=== PATIENT | female | born 1960 | race Caucasian/White ===

== ENCOUNTER → 2017-11-19 09:53 | Outpatient (CLI) | payer BC, SELFPAY ==
--- NOTE | 2017-11-19 09:56 | XR_ITS ---
XR DEXA axial skeleton HISTORY: ITS.REASON: POST MENOPAUSAL ORDERING PHYSICIAN: Rufina Aceves MD PATIENT AGE: 57 years COMPARISON: None FINDINGS: The BMD measured at the left Forearm Radius is 1.008 g/cm squared with a T score of 1.4 . This is considered normal according to the World Health Organization criteria. Fracture risk is low. Treatment is advised. The L1 L4 density has a T score of 1.4 which is within normal limits. IMPRESSION: Normal bone density. Recommend follow-up exam November 2019
--- NOTE | 2017-11-19 09:56 | MM_ITS ---
. MM Dig screening mamm BI w/CAD CAD Screening ORDERING PHYSICIAN : Rufina Aceves MD PATIENT AGE: 57 years GENDER: Female COMPARISON: No Previous mammograms: Available for comparison. In PACS system . INDICATION: Routine screening. No hormones. No new complaints. Family history. Sibling sister with breast cancer age 66 TECHNIQUE: Standard CC and MLO images were obtained. R2 CAD reviewed. FINDINGS: Iipp-zj-jnwyhszt scattered fibroglandular elements with mild/Moderate breast density. No dominant mass nor suspicious calcifications . Minimal asymmetry RIGHT BREAST:No areas of concern follow-up in one year. LEFT BREAST:Mild asymmetry but appear to be it fibroglandular densities which tdissipate moving from CC to MLO view. No areas of significant concern. Follow-up bilateral mammogram 1 year on recommended. Annual follow-up Should be encouraged/emphasized to ensure stable baseline of this minor asymmetry. ==IMPRESSION: = No focal area of significant concern. . Follow up one year Added note: Technologist again checked and there are No prior studies available for comparison. Apparently previous studies many years ago have been purged... Again with Encourage & Recommend bilateral follow-up one year to ensure stable baseline appearance of the minimal asymmetry BI-RADS Category: 2 Benign Finding(s) RECOMMENDED FOLLOW-UP: 1YR - 1 YEAR FOLLOW-UP (A letter has been sent to the patient regarding results of the study.)
== END ==
PROVIDERS: Family Provider Family Medicine; PCP Family Medicine; Visit Provider Family Medicine
DX: Z12.31 Encounter for screening mammogram for malignant neoplasm of breast (principal); Z13.820 Encounter for screening for osteoporosis
CPT/HCPCS: 77067; 77080

== ENCOUNTER → 2019-04-27 06:28 | Outpatient (CLI) | payer MEDICAID, SELFPAY ==
--- NOTE | 2019-04-27 | CA_ITS ---
APPROVED REPORT Exam: Exercise Treadmill Technologist: Alysha Paulino, Ht: 5 ft 5 in Wt: 188 lbs BSA: 1.93 m2 HR: 69 bpm BP: 146/86 mmHg Indications: Chest pain Medical History Medications: Amlodipine,,,,, Alprazolam,,,,, Aspirin,,,,, Metoprolol,,,,, Losartan,,,,, Atorvastatin,,,,, DulOXETINE,,,,, LoraTidine,,,,, SpirOnolactone,,,,, Methocarbamol,,,,, Stress Test Details Test: Manual Treadmill HR Resting HR: 79 bpm Max Heart Rate (APMHR): 161 bpm Max HR Achieved: 135 bpm Target HR (85% APMHR): 136 bpm % of APMHR: 83 Recovery HR: 115 bpm BP Resting BP: 146/86 mmHg Max BP: 222/88 mmHg Recovery BP: 154.0/71.0 mmHg ECG Clinical Exercise duration: 07:15 min Highest Stage Achieved: Exercise capacity: 9.0 METs Stress ECG Conclusion Exercised 7:15 on Adonis Protocol. Symptoms: No chest pain. Shortness of air, knee and hip pain, fatigue. Arrhythmias/Ectopy: Occasional fusion beat ST-T Changes: Allowing for motion artifact the ST response to exercise is within normal. Normal GXT Myoview images reported separately. Electronically signed by : Demond Kruse, 05/04/2019 11:42:52
--- NOTE | 2019-04-27 06:38 | NM_ITS ---
APPROVED REPORT Exam: Nuclear Stress Test NM EXAM: Myocardial Perfusion REST/STRESS Imaging Protocol: Rest Tc-99m/Stress Tc-99m 1 day Resting Data Rest SPECT myocardial perfusion imaging was performed in supine position 30 minutes following the intravenous injection of 10.20 mCi of TC99 Time of rest injection: 06:45AM Administration Route: IV Administration Site: Left AC Exercise Stress At peak stress, the patient was injected intravenously with 32.5mCi of TC99 Time of stress injection: 08:25AM Administration Route: IV Administration Site: Left AC Gated Stress SPECT was performed 30 minutes after stress injection. The images were gated to evaluate regional wall motion and calculate left ventricular ejection fraction. Nuclear Conclusion Stress images reveal decreased activity in the anterior wall and apex while the rest images reveal worsening activity in the above areas. Gated images calculated ejection fraction of 72% with normal wall motion. This is an abnormal stress test suggesting a significant degree of reversed redistribution in the anterior wall and apex. Normal ejection fraction and normal wall motion. High risk abnormal Electronically signed by : Demond Kruse, 04/29/2019 13:31:13
--- NOTE | 2019-04-27 07:19 | HMH.ITSHM ---
Current Home Medications as stated by this patient Jojo Flores or pharmaceutical sales representative. []DULOXETINE LOSARTAN ALPRAZOLAM SPIRONOLACTONE ATORVASTATIN METOPROLOL AMLODIPINE METHOCARBAMOL ASA LORATADINE
== END ==
PROVIDERS: PCP Family Medicine; Visit Provider Family Medicine
DX: R07.89 Other chest pain (principal)
CPT/HCPCS: 78452; 93017; A9502

== ENCOUNTER → 2020-09-19 11:18 | Outpatient (CLI) | payer MEDICARE, SELFPAY ==
--- NOTE | 2020-09-19 11:22 | XR_ITS ---
PROCEDURE: XR CHEST PORTABLE CLINICAL HISTORY: COVID OUTPATIENT Shortness of air COMPARISON: CR CXR CHEST(2 VIEWS-NOT PORTABLE) from 01/19/2013 CR CXR CHEST(2 VIEWS-NOT PORTABLE) from 11/25/2013 FINDINGS: The cardiomediastinal silhouette and pulmonary vascularity are within normal limits. The lungs are clear without infiltrates, suspicious nodules, or pleural effusions. No acute bony abnormalities. IMPRESSION: No acute findings. Dictated by: Jorge Reilly MD 09/19/2020 12:22 Jorge Reilly MD in [place] 09/19/2020 12:22
[2020-09-19 12:28] LABS: Basophils # 0.1 K/mm3 (0-0.2); Basophils % 1.3 % (0.1-2.0); Eosinophils # 1.6 K/mm3 (0.0-0.4); Hematocrit 47.1 % (37.0-47.0); Lymphocytes # 1.8 K/mm3 (0.7-4.5); Lymphocytes % 17.6 % (10-50); Mean Corpuscular HGB Conc 31.9 g/dL (31.8-35.4); Mean Corpuscular Hemoglobin 29.6 pg (27.0-31.2); Mean Corpuscular Volume 92.9 fl (81-99); Mean Platelet Volume 8.8 fl (7.4-10.4); Monocytes # 0.7 K/mm3 (0.1-1.0); Monocytes % 7.3 % (1.7-9.3); Neutrophils # 5.8 K/mm3 (1.8-7.8); Neutrophils % 57.9 % (37.0-80.0); Platelet Count 285 K/mm3 (142-424); Red Blood Count 5.07 M/mm3 (4.20-5.40)
[2020-09-19 12:54] LABS: Coronavirus 19 IgG Antibody Negative (Negative); Coronavirus 19 IgM Antibody Negative (Negative)
== END ==
PROVIDERS: PCP Family Medicine; Visit Provider Physician Assistant
DX: Z11.52 Encounter for screening for COVID-19 (principal); I10 Essential (primary) hypertension
CPT/HCPCS: 36415; 71045; 85025; 86328

== ENCOUNTER → 2020-11-22 16:55 | Outpatient (CLI) | payer MEDICARE, SELFPAY ==
--- NOTE | 2020-11-22 17:02 | XR_ITS ---
PROCEDURE: XR CHEST PORTABLE CLINICAL HISTORY: R/O COVID Cough COMPARISON: CR CXR CHEST(2 VIEWS-NOT PORTABLE) from 01/19/2013 CR CXR CHEST(2 VIEWS-NOT PORTABLE) from 11/25/2013 CR XR CHEST PORTABLE from 09/19/2020 FINDINGS: The cardiomediastinal silhouette and pulmonary vascularity are within normal limits. The lungs are clear without infiltrates, suspicious nodules, or pleural effusions. No acute bony abnormalities. IMPRESSION: No acute findings. Dictated by: Jorge Reilly MD 11/22/2020 17:23 Jorge Reilly MD in [facility] 11/22/2020 17:23
[2020-11-22 17:44] LABS: Adenovirus,PCR Not Detected (NotDetected); Bordetella Pertussis Not Detected (NotDetected); Chlamydophila Pneumoniae, PCR Not Detected (NotDetected); Coronavirus 19, PCR Not Detected (NotDetected); Coronavirus 229E Not Detected (NotDetected); Coronavirus NL63 Not Detected (NotDetected); Coronavirus OC43 Not Detected (NotDetected); Coronovirus HKU1,PCR Not Detected (NotDetected); Human Metapneumovirus Not Detected (NotDetected); Influenza A, PCR Not Detected (NotDetected); Influenza AH1, 2009 Not Detected (NotDetected); Influenza AH1, PCR Not Detected (NotDetected); Influenza AH3,PCR Not Detected (NotDetected); Influenza B, PCR Not Detected (NotDetected); Mycoplasma Pneumoniae, PCR Not Detected (NotDetected); Parainfluenza 1, PCR Not Detected (NotDetected); Parainfluenza 2, PCR Not Detected (NotDetected); Parainfluenza 3, PCR Not Detected (NotDetected); Parainfluenza 4, PCR Not Detected (NotDetected); Respiratory Syncytial Virus Not Detected (NotDetected)
[2020-11-22 18:02] LABS: Basophils # 0.1 K/mm3 (0-0.2); Basophils % 0.7 % (0.1-2.0); Eosinophils # 2.4 K/mm3 (0.0-0.4); Eosinophils % 22.4 % (0.1-12.0); Hemoglobin 13.4 g/dL (12.2-16.2); Lymphocytes # 2.3 K/mm3 (0.7-4.5); Lymphocytes % 21.9 % (10-50); Mean Corpuscular HGB Conc 33.6 g/dL (31.8-35.4); Mean Corpuscular Hemoglobin 29.2 pg (27.0-31.2); Mean Corpuscular Volume 87.1 fl (81-99); Mean Platelet Volume 8.6 fl (7.4-10.4); Monocytes # 0.4 K/mm3 (0.1-1.0); Monocytes % 4.2 % (1.7-9.3); Neutrophils # 5.3 K/mm3 (1.8-7.8); Neutrophils % 50.9 % (37.0-80.0); Platelet Count 316 K/mm3 (142-424); Red Cell Distribution Width 13.6 % (11.5-17.5); White Blood Count 10.5 K/mm3 (4.8-10.8)
[2020-11-23 00:39] LABS: Rhinovirus/Enterovirus Detected (NotDetected)
[2020-11-27 13:38] LABS: RMSF, IgG, EIA Negative (Negative); Rocky Mtn Spotted Fever, IgM 0.14 index (0.00-0.89)
== END ==
PROVIDERS: PCP Physician Assistant; Visit Provider Physician Assistant
DX: Z20.822 Contact with and (suspected) exposure to COVID-19 (principal); R05 Cough; B34.8 Other viral infections of unspecified site
CPT/HCPCS: 36415; 71045; 85025; 86609; 87581; 87633; 87798

== ENCOUNTER → 2021-05-15 13:09 | Outpatient (CLI) | payer MEDICARE, SELFPAY ==
--- NOTE | 2021-05-15 13:11 | CA_ITS ---
APPROVED REPORT EXAM: Comprehensive 2D, Doppler, and color-flow Echocardiogram Yard Person: Arely Goldstein, ELAINA, RVS Ht: 5 ft 5 in Wt: 191lbs BSA: 1.94 BP: 161/81 mmHg Indications: Palpitations, CAD, GERD, HTN, HLD, Murmur 2D Dimensions IVSd 0.96 cm LVEF (Visual) 51.30 % PWd 0.88 cm LA Volume 42.00 mL LVDd 3.92 cm LA Volume Index 21.60 mL/m2 (M/F) 16-34 LVDs 2.91 cm Aortic Root 2.94 cm Left Atrium 2.53 cm LVOT 1.68 cm (M/F) 1.5-2.5 M-Mode Dimensions LA Diam 3.40 cm (1.9-4.0) Ao Diam 3.43 cm (2.0-3.7) EPSs 0.27 cm TAPSE 1.98 (<1.7) LV Diastology E Decel Time 140.00 (160-240 msec) E/A Ratio 0.83 MED E' 9.30 (< 7 cm/sec) MED A' 11.20 cm/s E'/MED E' Ratio 8.03 (>14) LAT E' 9.40 (<10 cm/sec) LAT A' 11.50 cm/s E/LAT E' Ratio 7.95 (>14) Aortic Valve LVOT Max 99.00 (70-110 cm/s) LVOT VTI 20.27 cm AoV Peak Mike. 137.00 (50-130 cm/s) AO Peak GR. 7.50 mmHg AO Mean GR. 3.80 (<5 mmHg) AO VTI 26.87 (18-25 cm) KELY (VTI) 1.67 (2.5-4.5 cm2) Mitral Valve MV A Velocity 90.00 (40-130 cm/s) E/A Ratio 0.83 MV Decel. Time 140.00 (160-240 ms) Pulmonary Valve PV Peak Velocity 82.00 (50-150 cm/s) KS End VMAX 175.00 cm/s Tricuspid Valve TR P. Velocity 246.00 cm/s RAP Estimate 10.00 mmHg RVSP 34.20 mmHg Left Ventricle Left atrium is mildly enlarged, left ventricle is normal size, mild concentric left ventricular hypertrophy, visually estimated ejection fraction 55% with no regional wall motion abnormality, grade 1 diastolic dysfunction seen without tissue Doppler evidence of raise left atrial pressure. Right Ventricle Right atrium and right ventricle are normal size and contractility. Aortic Valve Aortic valve is minimally thickened and fibrosed, there is no aortic stenosis or aortic insufficiency. Mitral Valve Mitral valve is grossly normal, there is trace mitral regurgitation. Tricuspid Valve Tricuspid grossly normal, there is trace tricuspid regurgitation, tricuspid regurgitation jet velocity is inadequate for calculation of the right ventricular systolic pressure. Pulmonic Valve Pulmonic valve is poorly visualized. Great Vessels Aortic root is normal size. Inferior vena cava is not well visualized. Pericardium No significant pericardial effusion noted. Conclusion 1. Mildly enlarged left atrium, normal left ventricular size, mild concentric left ventricular hypertrophy, visually estimated ejection fraction 55% with no regional motion abnormality, grade 1 diastolic dysfunction seen without tissue Doppler evidence of raise left atrial pressure. 2. Mild mitral and tricuspid regurgitation. 3. No significant pericardial effusion noted. Electronically signed by : Pro Segura MD 05/16/2021 15:06:07
== END ==
PROVIDERS: PCP Family Medicine; Visit Provider Urology
DX: E78.2 Mixed hyperlipidemia (principal); I10 Essential (primary) hypertension; I25.10 Atherosclerotic heart disease of native coronary artery without angina pectoris; R00.2 Palpitations
CPT/HCPCS: 93306

== ENCOUNTER → 2021-06-06 12:31 | Outpatient (CLI) | payer MEDICARE, SELFPAY ==
[2021-06-06 12:48] LABS: Basophils # 0.1 K/mm3 (0-0.2); Basophils % 1.2 % (0.1-2.0); Eosinophils # 1.2 K/mm3 (0.0-0.4); Eosinophils % 14.7 % (0.1-12.0); Hematocrit 43.1 % (37.0-47.0); Hemoglobin 14.3 g/dL (12.2-16.2); Lymphocytes # 2.5 K/mm3 (0.7-4.5); Lymphocytes % 31.3 % (10-50); Mean Corpuscular HGB Conc 33.3 g/dL (31.8-35.4); Mean Platelet Volume 7.8 fl (7.4-10.4); Monocytes # 0.4 K/mm3 (0.1-1.0); Monocytes % 5.4 % (1.7-9.3); Neutrophils # 3.8 K/mm3 (1.8-7.8); Neutrophils % 47.3 % (37.0-80.0); Platelet Count 380 K/mm3 (142-424); Red Blood Count 4.79 M/mm3 (4.20-5.40); Red Cell Distribution Width 12.7 % (11.5-17.5)
[2021-06-06 13:21] LABS: C-Reactive Protein 0.4 mg/L (0-4)
[2021-06-06 13:26] VITALS: PULSE 74
[2021-06-09 20:38] LABS: D001-IgE D pteronyssinus <0.10 kU/L (Class 0); D002-IgE D farinae <0.10 kU/L (Class 0); E001-IgE Cat Dander <0.10 kU/L (Class 0); E005-IgE Dog Dander <0.10 kU/L (Class 0); E072-IgE Mouse Urine <0.10 kU/L (Class 0); G002-IgE Bermuda Grass <0.10 kU/L (Class 0); G006-IgE Timothy Grass <0.10 kU/L (Class 0); I006-IgE Cockroach, German <0.10 kU/L (Class 0); Immunoglobulin E, Total 79 IU/mL (6-495); M001-IgE Penicillium chrysogen <0.10 kU/L (Class 0); M002-IgE Cladosporium herbarum <0.10 kU/L (Class 0); M003-IgE Aspergillus fumigatus <0.10 kU/L (Class 0); M006-IgE Alternaria alternata <0.10 kU/L (Class 0); T001-IgE Maple/Box Elder 0.16 kU/L (Class 0/I); T003-IgE Common Silver Birch <0.10 kU/L (Class 0); T006-IgE Cedar, Mountain <0.10 kU/L (Class 0); T007-IgE Oak, White <0.10 kU/L (Class 0); T008-IgE Elm, American <0.10 kU/L (Class 0); T010-IgE Walnut <0.10 kU/L (Class 0); T011-IgE Maple Leaf Sycamore <0.10 kU/L (Class 0); T014-IgE Cottonwood <0.10 kU/L (Class 0); T015-IgE Ash, White <0.10 kU/L (Class 0); T022-IgE Pecan, Hickory <0.10 kU/L (Class 0); T070-IgE White Mulberry <0.10 kU/L (Class 0); W001-IgE Ragweed, Short 0.12 kU/L (Class 0/I); W011-IgE Thistle, Russian <0.10 kU/L (Class 0); W014-IgE Pigweed, Common <0.10 kU/L (Class 0); W018-IgE Sheep Sorrel <0.10 kU/L (Class 0)
== END ==
PROVIDERS: PCP Family Medicine; Visit Provider Internal Medicine Pulmonary Disease
DX: J45.909 Unspecified asthma, uncomplicated (principal); R06.00 Dyspnea, unspecified
CPT/HCPCS: 36415; 82785; 85025; 86003; 86140; 94060; 94618; 94640; 94726; 94729

== ENCOUNTER → 2021-10-31 07:58 | Outpatient (CLI) | payer MEDICARE, SELFPAY ==
--- NOTE | 2021-10-31 08:01 | MM_ITS ---
PROCEDURE INFORMATION: Exam: MG Bilateral Screening 3D Mammography Exam date and time: 10/31/2021 8:01 AM Age: 61 years old Clinical indication: Screening mammogram TECHNIQUE: Imaging protocol: Bilateral Screening tomosynthesis and 2D mammography including computer-aided detection (CAD) when performed. COMPARISON: MG SCBI MM Dig screening mamm BI w/CAD 11/19/2017 10:14 AM FINDINGS: MAMMOGRAPHY: Breast composition: There are scattered areas of fibroglandular density. Mass: None. Architectural distortion: No new or suspicious architectural distortion. Calcifications: Stable benign-appearing calcifications are present. No new or suspicious cluster of microcalcifications have developed. Asymmetric density: No new or suspicious asymmetric density is present Skin thickening: None. Axillary adenopathy: None. IMPRESSION: No mammographic evidence of malignancy. Recommend annual screening mammography unless otherwise clinically indicated. ASSESSMENT: BI-RADS category 2: Benign
--- NOTE | 2021-10-31 08:46 | XR_ITS ---
FINAL REPORT TECHNIQUE: Bone densitometry calculations of the lumbar spine and left hip were obtained. CLINICAL HISTORY: . post menopausal FINDINGS: Using L1-4, the bone mineral density of the spine is 1.084 g/cm2, corresponding to T-score of 0.3. Using the left hip, the bone mineral density of the femoral neck is 0.921 g/cm2, corresponding to a T-score of 0.6. Using the distal 3rd of the radius, the bone mineral density of the femoral neck is 0.496 g/cm2, corresponding to a T-score of -3.3. IMPRESSION: Normal bone mineral density of the lumbar spine and hip with osteoporosis of the distal 3rd of the radius. Reviewed, Interpreted and Dictated by Titus Segovia MD Transcribed by Srikanth Esparza Authenticated by Titus Segovia MD on 10/31/2021 12:52:12 PM [facility]
== END ==
PROVIDERS: PCP Family Medicine; Visit Provider Family Medicine
DX: Z12.31 Encounter for screening mammogram for malignant neoplasm of breast (principal); Z78.0 Asymptomatic menopausal state
CPT/HCPCS: 77063; 77067; 77080

== ENCOUNTER → 2022-05-23 10:30 | Outpatient (CLI) | payer MEDICARE, SELFPAY ==
--- NOTE | 2022-05-23 10:35 | XR_ITS ---
FINAL REPORT CLINICAL HISTORY: LEFT SHOULDER PAIN FINDINGS: LEFT SHOULDER Three views demonstrate no acute fracture or dislocation. There is mild AC joint degenerative change. The visualized bony structures are well aligned. No soft tissue abnormality is seen. IMPRESSION: Mild AC joint degenerative change. Reviewed, Interpreted and Dictated by Jeremiah Cohen III, MD Transcribed by Srikanth Esparza Authenticated and [facility]
== END ==
PROVIDERS: PCP Family Medicine; Visit Provider Family Medicine
DX: M25.512 Pain in left shoulder (principal)
CPT/HCPCS: 73030

== ENCOUNTER → 2022-08-08 14:31 | Outpatient (CLI) | payer MEDICARE, SELFPAY ==
--- NOTE | 2022-08-08 14:34 | MR_ITS ---
FINAL REPORT CLINICAL HISTORY: LEFT ARM PAIN. LEFT SHOULDER AND ARM PAIN. LEFT SIDED NECK PAIN. HEADACHE. FINDINGS: Multi planar MR imaging was obtained of the cervical spine. There is abnormal decreased signal throughout the cervical discs. The vertebrae are of normal height. There is no malalignment. The cervical cord demonstrates normal signal and configuration. C2-C3: There is no evidence of significant disc bulge or protrusion. There is no significant facet hypertrophy. C3-C4: Moderate diffuse disc bulge and endplate hypertrophy are present. There is moderate bilateral neural foraminal narrowing. C4-C5: Moderate endplate hypertrophy is present. There is moderate right and moderate to high-grade left neural foraminal narrowing. C5-C6: Moderate to large diffuse disc bulge is present. There is endplate hypertrophy. There is moderate right and high-grade left neural foraminal narrowing. C6-C7: Moderate diffuse disc bulge is present with moderate bilateral neural foraminal narrowing. C7-T1: There is no evidence of significant disc bulge or protrusion. There is no significant facet hypertrophy. IMPRESSION: Multilevel hypertrophic change of degenerative disc disease with neural foraminal compromise, most evident on the left at C5-6. Reviewed, Interpreted and Dictated by Titus Segovia MD Transcribed by Asuncion John Authenticated and [facility]
== END ==
PROVIDERS: PCP Family Medicine; Visit Provider Family Medicine
DX: M79.602 Pain in left arm (principal)
CPT/HCPCS: 72141; 76376

== ENCOUNTER → 2022-11-27 15:13 | Outpatient (CLI) | payer MEDICARE, SELFPAY ==
--- NOTE | 2022-11-27 15:20 | XR_ITS ---
FINAL REPORT CLINICAL HISTORY: LEFT HIP PAIN FINDINGS: LEFT HIP Two views of the left hip including an AP pelvis demonstrate no acute fracture or dislocation. There is moderate narrowing in the left hip joint space. There are osteophytes at the lateral hip margin. There is right hip total joint prosthesis. The visualized bony structures are well aligned. No soft tissue abnormality is seen. IMPRESSION: Findings consistent with osteoarthritis of the left hip. Reviewed, Interpreted and Dictated by Titus Segovia MD Transcribed by Laila Osorio Authenticated and . [facility]
== END ==
PROVIDERS: PCP Family Medicine; Visit Provider Physician Assistant
DX: M25.552 Pain in left hip (principal)
CPT/HCPCS: 73502

== ENCOUNTER 2023-12-24 13:39 | Outpatient (CLI) | payer MEDICARE, SELFPAY | END 2023-12-24 23:59 | disposition home or self-care (01) | LOC: RT 13:40 | PROVIDERS: PCP Family Medicine; Visit Provider Internal Medicine Pulmonary Disease | DX: J45.40 Moderate persistent asthma, uncomplicated (principal) | CPT/HCPCS: 94060 ==

== ENCOUNTER 2024-02-18 09:55 | Outpatient (CLI) | payer MEDICARE, SELFPAY ==
--- NOTE | 2024-02-18 10:00 | MM_ITS ---
PROCEDURE INFORMATION: Exam: MG Bilateral Screening 3D Mammography Exam date and time: 02/18/2024 10:05 AM Age: 63 years old Clinical indication: Screening examination TECHNIQUE: Imaging protocol: Bilateral Screening tomosynthesis and 2D mammography including computer-aided detection (CAD) when performed. COMPARISON: 1. MG MM DIG SCREENING MAMM BI W/CAD 10/31/2021 8:00 AM 2. MG SCBI MM Dig screening mamm BI w/CAD 11/19/2017 10:14 AM FINDINGS: MAMMOGRAPHY: Breast composition: There are scattered areas of fibroglandular density. Mass: None. Architectural distortion: None. Calcifications: No suspicious calcifications. Asymmetric density: None. Skin thickening: None. Axillary adenopathy: None. IMPRESSION: No mammographic evidence of malignancy. Annual screening is recommended unless otherwise clinically indicated. ASSESSMENT: BI-RADS Category 1: Negative
== END 2024-02-18 23:59 | disposition home or self-care (01) ==
LOC: RAD 09:56
PROVIDERS: PCP Family Medicine; Visit Provider Family Medicine
DX: Z12.31 Encounter for screening mammogram for malignant neoplasm of breast (principal)
CPT/HCPCS: 77063; 77067

== ENCOUNTER 2024-06-09 08:55 | Outpatient (CLI) | payer MEDICARE, OTHER, SELFPAY ==
[2024-06-09 09:21] LABS: Basophils % 0.6 % (0.1-2.0); Eosinophils # 0.4 K/mm3 (0.0-0.4); Eosinophils % 5.9 % (0.1-12.0); Hematocrit 40.9 % (37.0-47.0); Hemoglobin 13.3 g/dL (12.2-16.2); Lymphocytes # 2.1 K/mm3 (0.7-4.5); Lymphocytes % 34.3 % (10-50); Mean Corpuscular HGB Conc 32.5 g/dL (31.8-35.4); Mean Corpuscular Hemoglobin 30.9 pg (27.0-31.2); Monocytes # 0.4 K/mm3 (0.1-1.0); Monocytes % 5.7 % (1.7-9.3); Neutrophils # 3.3 K/mm3 (1.8-7.8); Neutrophils % 53.4 % (37.0-80.0); Platelet Count 324 K/mm3 (142-424); Red Cell Distribution Width 13.4 % (11.5-17.5); White Blood Count 6.2 K/mm3 (4.8-10.8)
[2024-06-09 09:35] LABS: Alanine Aminotransferase 23 U/L (12-78); Albumin Level 4.3 g/dl (3.5-5.0); Alkaline Phosphatase 90 U/L (38-126); Aspartate Amino Transferase 26 U/L (14-36); Bilirubin,Total 0.5 mg/dl (0.2-1.3); Blood Urea Nitrogen 13 mg/dl (7-17); Calcium 9.5 mg/dl (8.4-10.2); Carbon Dioxide 33 mmol/L (22.0-30.0); Chloride 105 mmol/L (98-107); Estimated Glomerular Filt Rate 84 ml/min (>60); GFR (African American) 102 ML/MIN (>60); Globulin 2.1 g/dL (1.3-3.2); Glucose 120 mg/dl (74-100); Sodium 141 mmol/L (136-145); Total Protein,Serum 6.4 g/dl (6.3-8.2)
== END 2024-06-09 23:59 | disposition home or self-care (01) ==
LOC: LAB 08:58
PROVIDERS: PCP Family Medicine; Visit Provider Internal Medicine Pulmonary Disease
DX: J45.909 Unspecified asthma, uncomplicated (principal); J84.9 Interstitial pulmonary disease, unspecified
CPT/HCPCS: 36415; 80053; 85025

== ENCOUNTER 2024-07-22 14:13 | Outpatient (CLI) | payer MEDICARE, OTHER, SELFPAY ==
--- NOTE | 2024-07-22 14:21 | CA_ITS ---
APPROVED REPORT EXAM: Comprehensive 2D, Doppler, and color-flow Echocardiogram Trench Digger: Edelmira Villegas RT(R) Ht: 5 ft 5 in Wt: 189lbs BSA: 1.93 BP: 118/66 mmHg Indications: DD, HTN, hyperlipidemia, CAD, Hx TIA 2D Dimensions LA Volume 14.20 mL LA Volume Index 7.36 mL/m2 (M/F) 16-34 EF AP4 60.00 % GL Strain -15.5 % M-Mode Dimensions RVDd 3.50 cm (0.9-2.6) LA Diam 2.42 cm (1.9-4.0) LVDd 3.78 cm (3.5-5.7) LVDs 2.78 cm (3.5-5.7) IVSd 0.93 cm (0.6-1.1) PWd 0.93 cm (0.6-1.1) EF (Teich) 52.60% FS 26.50% EDV (Teich) 61.20 mL ESV (Teich) 29.00 mL LV Diastology E Decel Time 217 (160-240 msec) E/A Ratio 0.86 Mitral Valve MV A Velocity 88.0 (40-130 cm/s) E/A Ratio 0.86 Tricuspid Valve TR P. Velocity 280.00 cm/s RAP Estimate 10.00 mmHg RVSP 41.30 mmHg Left Ventricle The left ventricle is normal size. The left ventricular systolic function is normal. The left ventricular ejection fraction is within the normal range. There is increased LV wall thickness. There is normal LV segmental wall motion. Transmitral Doppler flow pattern suggests impaired LV relaxation. LVEF is 55%. Right Ventricle Right ventricle is mildly dilated. The right ventricular systolic function is normal. Atria The left atrium size is normal. The right atrium size is normal. There is no Doppler evidence of interatrial shunt. Aortic Valve The aortic valve is mildly thickened. There is no aortic valvular stenosis. No aortic regurgitation is present. Mitral Valve The mitral valve is normal in structure. No evidence of mitral valve stenosis. Mild mitral regurgitation. Tricuspid Valve The tricuspid valve leaflets are thin and pliable. Mild tricuspid regurgitation. RVSP is 30-35 mmHg. Pulmonic Valve The pulmonary valve is normal in structure. Mild pulmonic regurgitation. Great Vessels The aortic root is normal in size. The ascending aorta is not well-visualized. IVC is normal in size and collapses >50% with inspiration. Pericardium There is no pericardial effusion. Other Information Study Quality: Fair Conclusion Normal biventricular systolic function. Mild RV dilation. Mild MR, mild TR, mild PI. RVSP 30-35 mmHg. Electronically signed by : Yessica Garcia MD 08/02/2024 11:15:57
== END 2024-07-22 23:59 | disposition home or self-care (01) ==
LOC: RT 14:14
PROVIDERS: PCP Family Medicine; Visit Provider Nurse Practitioner
DX: I34.0 Nonrheumatic mitral (valve) insufficiency (principal); I07.1 Rheumatic tricuspid insufficiency
CPT/HCPCS: 93306

== ENCOUNTER 2024-11-25 10:25 | Outpatient (CLI) | payer MEDICARE, OTHER, SELFPAY | END 2024-11-25 23:59 | disposition home or self-care (01) | LOC: RT 10:26 | PROVIDERS: PCP Family Medicine; Visit Provider Family Medicine | DX: R00.2 Palpitations (principal) | CPT/HCPCS: 93225; 93227 ==

== ENCOUNTER 2025-02-06 12:31 | Day surgery (SDC) | payer MEDICARE, OTHER, SELFPAY ==
[2025-02-03 10:16] VITALS: BMI 30.9
[2025-02-06 13:27] VITALS: BP 135/66; PULSE 82; RESP 16; TEMP 36.5; O2SAT 95
[2025-02-06] MEDS: LACTATED RINGERS 1000ML 1,000 ML 50 ML IV (13:44)
--- NOTE | 2025-02-06 13:54 | EXP.ANES.CKL ---
[facility] Disclaimer: The information contained in this section may have been updated after the patient was seen, as this information can be updated by other users. Medical History Tricuspid regurgitation Diastolic dysfunction Mitral regurgitation Osteoporosis Seasonal allergic rhinitis Eosinophilia Moderate persistent asthma Seasonal allergies Family history of asthma Dyspnea on exertion CAD (coronary artery disease) Dizziness Family history of heart disease TIA (transient ischemic attack) HLD (hyperlipidemia) HTN (hypertension) Abnormal stress test Dyspnea Angina, class IV Surgical History History of right hip replacement History of colonoscopy History of right knee joint replacement History of right knee surgery History of cholecystectomy History of hysterectomy History of D&C Family History Other Coronary artery disease Hyperlipidemia Hypertension Social History Smoking Status: Never smoker alcohol intake: never substance use type: denies use current occupational status: retired Travel in the last 8 weeks?: None household members: spouse housing: house current occupational exposures/hazards: Yes caffeine: Yes Have you lived/traveled outside US in past 30 days?: No Contact w/someone who lives/traveled outside US past 30 days?: No Exposure to someone with infectious disease in past 14 days?: No Do you have a fever (greater than 100.4 F or 38 C)?: No Have you tested positive for COVID-19?: No Exposed to someone with COVID-19 in past 14 days?: No Do you have a sore throat?: No Do you have a cough?: No Do you have any weakness?: No Are you experiencing any nausea/vomitting?: No Do you have any diarrhea?: No Are you experiencing any unusual bleeding?: No Do you have any muscle aches/pain?: No Do you have any abdominal pain?: No Are you experiencing loss of taste or smell?: No [facility] Anesthesia Checklist Patient Identification Patient Identification: Arm Band and Verbal (Name & ) Structural Data Admitted From: Home Planned Operative Procedure/s: colonscopy Consent for Planned Operative Procedure(s) Verified: Yes Verified Documents: Surgical Consent and History and Physical NPO Status Verified Time NPO: 00:00 Additional verifications Anesthesia Reactions: No Airway Assessment Mallampati Score:: Class II Dentition: Good Dentition Neurological Assessment Level of Consciousness: Awake, Alert and Appropriate Hx Seizures: No Anesthesia Plan Anesthesia Risk discussed: Yes Anesthesia Plan: Verified ASA Class: III Anesthesia Type: MAC
--- NOTE | 2025-02-06 13:54 | EXP.HP ---
History of Present Illness *Admission Date: 02/06/25 *Reason for visit:: Screening for colon cancer *History of present illness: Mrs. Flores is a 64-year-old female who is here for screening colonoscopy. Her last colonoscopy was 10 years ago. The examination is deemed medically necessary for screening colonoscopy. The patient has been seen, interviewed and examined prior to the procedure by both myself and the anesthesia provider. [facility] Disclaimer: The information contained in this section may have been updated after the patient was seen, as this information can be updated by other users. Medical History Tricuspid regurgitation Diastolic dysfunction Mitral regurgitation Osteoporosis Seasonal allergic rhinitis Eosinophilia Moderate persistent asthma Seasonal allergies Family history of asthma Dyspnea on exertion CAD (coronary artery disease) Dizziness Family history of heart disease TIA (transient ischemic attack) HLD (hyperlipidemia) HTN (hypertension) Abnormal stress test Dyspnea Angina, class IV Surgical History History of right hip replacement History of colonoscopy History of right knee joint replacement History of right knee surgery History of cholecystectomy History of hysterectomy History of D&C Family History Other Coronary artery disease Hyperlipidemia Hypertension Social History Smoking Status: Never smoker alcohol intake: never substance use type: denies use current occupational status: retired Travel in the last 8 weeks?: None household members: spouse housing: house current occupational exposures/hazards: Yes caffeine: Yes Have you lived/traveled outside US in past 30 days?: No Contact w/someone who lives/traveled outside US past 30 days?: No Exposure to someone with infectious disease in past 14 days?: No Do you have a fever (greater than 100.4 F or 38 C)?: No Have you tested positive for COVID-19?: No Exposed to someone with COVID-19 in past 14 days?: No Do you have a sore throat?: No Do you have a cough?: No Do you have any weakness?: No Are you experiencing any nausea/vomitting?: No Do you have any diarrhea?: No Are you experiencing any unusual bleeding?: No Do you have any muscle aches/pain?: No Do you have any abdominal pain?: No Are you experiencing loss of taste or smell?: No Other Medical History Have you received the Flu Vaccine for this season: No Have you received the Pneumonia Vaccine: Yes Review of Systems Review of Systems Review of systems (narrative): Negative *Cardiovascular Comments: Negative *Gastrointestinal Comments: Negative *Genitourinary Comments: Negative *Musculoskeletal Comments: Negative *Neurologic Comments: Negative Meds Home Medications and Allergies Home Medications ?Medication ?Instructions ?Recorded ?Confirmed ?Type alprazolam 0.5 mg tablet (Xanax) 0.5 mg PO TID 05/16/19 02/06/25 History amlodipine 5 mg tablet (Norvasc) 5 mg PO DAILY 05/16/19 02/06/25 History aspirin 81 mg tablet,delayed 81 mg PO DAILY 05/16/19 02/06/25 History release atorvastatin 40 mg tablet (Lipitor) 40 mg PO QHS 05/16/19 02/06/25 History duloxetine 60 mg capsule,delayed 60 mg PO BID 05/16/19 02/06/25 History release (Cymbalta) loratadine 10 mg tablet (Claritin) 10 mg PO DAILY 05/16/19 02/06/25 History losartan 50 mg tablet 50 mg PO BID 05/16/19 02/06/25 History metoprolol succinate 25 mg 25 mg PO DAILY 05/16/19 02/06/25 History tablet,extended release 24 hr spironolactone 25 mg tablet 25 mg PO DAILY 05/16/19 02/06/25 History (Aldactone) omeprazole 40 mg capsule,delayed 40 mg PO DAILY 11/23/19 02/06/25 History release albuterol sulfate 90 mcg/actuation 1 inh inhalation Q6H PRN shortness 07/02/21 02/06/25 Rx aerosol inhaler of breath or wheezing 90 days #8.5 grams cetirizine 10 mg tablet (Zyrtec) 10 mg PO DAILY PRN allergy 07/02/21 02/06/25 Rx symptoms #30 tabs ipratropium 0.5 mg-albuterol 3 mg 3 ml inhalation Q6H PRN shortness 07/02/21 02/06/25 Rx (2.5 mg base)/3 mL nebulization of breath or wheezing #90 mL soln calcium 600 mg (as 600 cap PO .once weekly 07/02/22 02/06/25 History carbonate)-vitamin D3 25 mcg (1,000 unit) capsule cyanocobalamin (vitamin B-12) 1,000 mcg PO DAILY 07/09/22 02/06/25 History 1,000 mcg tablet raloxifene 60 mg tablet 60 mg PO DAILY 07/09/22 02/06/25 History semaglutide 0.25 mg or 0.5 mg (2 0.25 mg SQ WEEKLY 12/24/23 02/06/25 History mg/3 mL) subcutaneous pen injector (Ozempic) azelastine 137 mcg (0.1 %) nasal 2 spray intranasal BID #30 mL 06/24/24 02/06/25 Rx spray fluticasone propionate 50 2 spray intranasal BID 90 days #16 06/24/24 02/06/25 Rx mcg/actuation nasal grams spray,suspension (Flonase Allergy Relief) montelukast 10 mg tablet 10 mg PO DAILY 90 days #90 tabs 06/24/24 02/06/25 Rx celecoxib 200 mg capsule 200 mg PO DAILY 12/29/24 02/06/25 History gabapentin 600 mg tablet 600 mg PO TID 12/29/24 02/06/25 History sodium,potassium,mag sulfates 17.5 See Rx Instructions PO .COMPLEX 01/24/25 02/06/25 Rx gram-3.13 gram-1.6 gram oral soln #354 mL (Suprep Bowel Prep Kit) budesonide-formoterol HFA 160 2 puff inhalation BID soa 02/03/25 02/06/25 History mcg-4.5 mcg/actuation aerosol inhaler New Prescriptions to Start Prescriptions: Allergies Allergy/AdvReac Type Severity Reaction Status Date / Time acetaminophen (From Lortab) Allergy Mild Other Verified 02/06/25 13:12 hydrocodone (From Lortab) Allergy Mild Other Verified 02/06/25 13:12 Penicillins Allergy Unknown Rash Verified 02/06/25 13:12 Exam Data for Last 24 hours Vital signs and Labs for Last 24 Hours: Temp Pulse Resp BP Pulse Ox O2 Del Method 97.7 F 82 16 135/66 95 Room Air 02/06/25 13:27 02/06/25 13:27 02/06/25 13:27 02/06/25 13:27 02/06/25 13:27 02/06/25 13:27 I & O for Last 24 hours: Intake & Output 02/03/25 02/04/25 02/05/25 02/06/25 23:59 23:59 23:59 23:59 Weight 186 lb *Routine HEENT Exam Head: Present normocephalic Eye: Present EOMI and PERRL ENT: Present mucous membranes moist *Routine Neck Exam Neck: Present supple *Routine Respiratory Exam Respiratory: Present CTA bilaterally *Routine Cardiovascular Exam Cardiovascular: Present RRR *Routine Abdominal Exam Abdominal: Present soft and normoactive bowel sounds; Absent tenderness *Routine Rectal Exam Rectal:: deferred *Routine Genitalia Exam Genitalia:: deferred *Routine Extremities Exam Extremities: Absent cyanosis, clubbing or edema *Routine Skin Exam Skin: Present warm; Absent rash *Routine Neurological Exam Neurological: Present alert and oriented X3 Assessment and Plan *Assessment and plan (1) Screening for colon cancer: Status: Acute Category: Medical Code(s): Z12.11 - Encounter for screening for malignant neoplasm of colon Plan A/P: 1. Screening for colon cancer is the preprocedural diagnosis. The patient will be anesthetized/sedated using MAC sedation. The patient has been seen and examined. Cardiac and lung assessment prior to the examination is stable. Proceed with planned screening colonoscopy.
--- NOTE | 2025-02-06 14:17 | HMH.PROCNOTE ---
[facility] Procedure Note Date: 02/06/25 Time: 14:17 Procedure Note:: Colonoscopy Procedure Report: Colonoscopy with cold snare polypectomy Endoscopist: Tim Guerrero II, MD Referring physician: Shorty Aceves MD Date of Procedure: February 06, 2025 Equipment: Olympus 190 variable stiffness pediatric colonoscope Sedation: MAC sedation Indication: Mrs. Flores is a 64-year-old female who is here for screening colonoscopy. Her last colonoscopy 10 years ago was normal. She reports no abdominal pain, weight loss, change in her bowel habits or rectal bleeding. She reports no family history of colon cancer. She does have some mild chronic constipation. Procedure: Prior to the procedure, a history and physical exam was performed, and patient's medications and allergies were reviewed. The risks, benefits and alternatives of the sedation and procedure were discussed with the patient. All questions were answered and informed consent was obtained. The patient was brought to the procedure room. Patient identification and proposed procedure were verified by the physician and the nurse. The patient was placed in a left lateral decubitus position and the scope was passed under direct vision. Throughout the procedure, the patient's blood pressure, pulse, and oxygen saturations were monitored continuously. The colonoscopy was accomplished without difficulty. The patient tolerated the procedure well. Findings: On digital rectal examination there was normal rectal tone. There were no external hemorrhoids. The colonoscope was introduced through the anal canal to the rectum and advanced to the cecum. The ileocecal valve and appendiceal orifice were identified. The scope was advanced a short distance into the ileum which appeared grossly normal. The scope was then withdrawn into the colon. There were 2 polyps (transverse x 1 (3 mm) and descending x 1 (4 mm)). Both of these were removed via cold snare polypectomy. The remaining cecum, ascending, transverse, descending, sigmoid and rectum were grossly normal. There were no mucosal abnormalities identified. Upon retroflexion within the rectum there were grade 1-2 internal hemorrhoids. The preparation was excellent throughout with [place] Preparation Score of 9. The cecal time was 12 minutes. Impression: 1. Diminutive colonic polyps x 2 Plan: I will follow-up the polyp histology and recommend repeat surveillance colonoscopy again in 7 to 10 years based upon the pathology. I would encourage a fiber bowel regimen on a regular and daily basis.
[2025-02-06 14:19] VITALS: BP 102/52; PULSE 79; RESP 17; TEMP 36.2; O2SAT 98
[2025-02-06 14:29] VITALS: BP 111/61; PULSE 84; RESP 18; O2SAT 99
[2025-02-06 14:39] VITALS: BP 137/60; PULSE 69; RESP 18; O2SAT 100
[2025-02-06 14:49] VITALS: BP 123/75; PULSE 65; RESP 18; O2SAT 99
[2025-02-06 16:00] LABS: POC Glucose,Bedside 103 (70-110)
== END 2025-02-06 15:12 | disposition home or self-care (01) ==
PROVIDERS: PCP Family Medicine; Visit Provider Internal Medicine Gastroenterology
PROC: 0DJD8ZZ Inspection of Lower Intestinal Tract, Via Natural or Artificial Opening Endoscopic (ICD-10-PCS; CPT 45378; principal; 2025-02-06 14:30)
DX: Z12.11 Encounter for screening for malignant neoplasm of colon (principal); D12.4 Benign neoplasm of descending colon; K63.5 Polyp of colon; J45.40 Moderate persistent asthma, uncomplicated; I25.10 Atherosclerotic heart disease of native coronary artery without angina pectoris; E78.5 Hyperlipidemia, unspecified; I10 Essential (primary) hypertension; Z79.899 Other long term (current) drug therapy; Z79.85 Long-term (current) use of injectable non-insulin antidiabetic drugs; Z79.51 Long term (current) use of inhaled steroids; Z79.82 Long term (current) use of aspirin; Z86.73 Personal history of transient ischemic attack (TIA), and cerebral infarction without residual deficits; Z90.49 Acquired absence of other specified parts of digestive tract; Z88.0 Allergy status to penicillin; Z88.5 Allergy status to narcotic agent
CPT/HCPCS: 45385; 82962; 88305; J7120

== ENCOUNTER 2025-02-18 08:03 | Outpatient (CLI) | payer MEDICARE, OTHER, SELFPAY ==
--- OUTSIDE RECORDS SUMMARY | 2024-05-20 06:30 | XMS_ITS ---
Author Organization [facility] Address [address] [facility] [address] [place] [id number] Care Team Providers Care Neuro Psych Sales Specialist Name Role Phone Stepan Aceves Primary Care Provider [phone] Allergies Allergen (clinical drug ingredient) Drug/Non Drug Allergy documented on EMR Reaction Allergy Type Onset Date Status ramipril Altace Unknown Drug Allergy Active aspirin Aspirin Unknown Drug Allergy Active Substance with penicillin structure and antibacterial mechanism of action (substance) Penicillins Unknown Drug Allergy Active REASON FOR VISIT telehealth [phone] f/u Medications Medication SIG (Take, Route, Frequency, Duration) Notes Start Date End Date Status ALPRAZolam 0.5 MG 1 tab orally 3 times a day 05/20 Active amLODIPine Besylate 5 MG TAKE 1 TABLET E VERY DAY for 90 days Active Spironolactone 25 MG 1 tab(s) orally onc e a day for 90 days Active Losartan Potassium 50 MG TAKE 1 TABLET T WICE DAILY for 90 Active Metoprolol Succinate ER 25 MG TAKE 1 TABLET EVERY DAY for 90 Active Omeprazole 40 MG 1 cap(s) orally once a day Active Vitamin B-12 1000 MCG 1 tablet Orally On ce a day for 90 days Active Gabapentin 600 MG 1 tab(s) orally 3 ti mes a day for 30 day(s) 01/06/2024 Active DULoxetine HCl 60 MG TAKE 1 CAPSULE ONE TIME DAILY for 90 Active Ozempic (0.25 or 0.5 MG/DOSE) 2 MG/3ML 0.5 mg subcutaneously once a week for 28 days Active Celecoxib 200 MG 1 cap(s) orally once a day for 90 days Active Atorvastatin Calcium 40 MG 1 tab(s) orally at bedtime Active Montelukast Sodium 10 MG 1 tab(s) orally once a day for 90 days Active Blood Glucose Test Strips 333 - as directed In Vitro 11/19/2023 Active Raloxifene HCl 60 MG TAKE 1 TABLET BY [facility] EVERY DAY for 90 days Active Symbicort 80-4.5 MCG/ACT 2 puff(s) inhal ed 2 times a day Active ProAir Digihaler 108 (90 Base) MCG/ACT 2 puff(s) inhaled three times a day as needed 10/01/2020 Active Aspirin Low Dose 81 MG 1 tab(s) orally once a day 04/02/2017 Active Silvadene 1 % 1 application Group Segment Consultant ally Once a day 05/07/2023 Active Fluticasone Propionate 50 MCG/ACT as directed in each nostril once a day for 30 day(s) Active Loratadine 10 MG 1 capsule Orally Onc e a day for 30 day(s) Active Calcium + Vitamin D3 600-5 MG-MCG 1 tab(s) orally 2 times a day Active Vital Signs Blood pressure systolic 128 mm Hg 05/20/20 24 Blood pressure diastolic 80 mm Hg 024 Heart Rate 00 /min 05/20/2024 Height 62.25 in 05/20/2024 Weight 186 lbs 05/20/2024 BMI 33.74 kg/m2 05/20/2024 Encounters Encounter Location Date Provider Diagnosis [facility] [facility] [address] [id number] 05/20/2024 Stepan Aceves Anxiety F41.9 ; Essential [...] MG 1 tab(s) orally onc e a day for 90 days Next Appt Details Follow Up: 3 Months, Reason: Provider Name:Stepan Cary er, 03/31/2025 09:45:00 AM, [address], [address], [place], [place], [id number], Progress Notes * Lionel ROJOOB:1960 ([age] yo F)Acc No.[id number]:05/20/2024 Progress Notes Patient: Jojo MILLER Provider: Stepan Aceves M.D. :1960 A ge:63 Y S ex:Female Date:05/20/2024 Address:[address] [place] [address] [address], [place], [id number] Subjective: * Chief Complaints: * 1 . Telehealth [phone] f/u. * HPI: P sychology: The patient states she is needing a refill for Alprazolam and Spiron[facility]actone [facility] [place]. * ROS: D ERMATOLOGY: no R donal. n o H araseli. G ASTROENTEROLOGY: no N ausea. n o V omiting. n o D iarrhea.? U ROLOGY: no D ifficulty urinating. n o B lood in urine. * Medical History: A IT, Hypertension, Hyperlipidemia, Normal Heart Cath, 07/2004, Neg Cardiolyte GXT, 02/03/2013, TSH=1.6, 01/19/2013, Normal EMG/NCV of legs, 09/17/2018, Cath [facility] 30% stenosis LAD, 05/19/2019. * Surgical History: D &C , Right knee bone chip removed 1990, TARA/BSO abdominal, [facility] 1994, Heart Cath, near Normal 07/2004, cystoscopy , Colonoscopy 2003, 2013, 2014, RT Shoulder 01/09/2010, Cholecystectomy 2004, RT Knee Arthoscopy 09/05/2015, RT Knee Replacement 09/03/2016, RT Hip Replacement 10/14/2017, Hip Steroid Injection 08/26/2018, 10/06/2018, Heart Cath, [facility] 05/2019. * Hospitalization/Major Diagno stic Procedure: C hest Pain 02/2006, Bronchitis, Hives- [facility] ER 08/31/2010, Chest Pain 01/2013. * Family [...] 95 * Follow Up: 3 Months * Billing Information: * Visit Code: * Procedure Codes: 71883 OFFICE VIST, EST PT. LEVEL 3, TELEHEALTH. Modifiers: 95 * Electronic signature of Stepan Aceves MD on 02/18/2025 at 08:05 AM EDT Sign off status: Pending * Provider: Stepan Aceves M.D. Date: 0 05/20/2024 Generated for Arleth do/Argelia/Dk on: 02/18/2025 08:05 AM EDT History and Physical Notes * Examination Category Sub-Category Detail Notes Category Not es General Examination [facility]:, Speaks in complete sentences, cogent
--- OUTSIDE RECORDS SUMMARY | 2024-07-22 07:30 | XMS_ITS ---
Author Organization [facility] Address [address] [facility] [address] [place] [id number] Care Team Providers Care Ticker Wirer Name Role Phone Stepan Aceves Primary Care Provider [phone] Allergies Allergen (clinical drug ingredient) Drug/Non Drug [...] Interpretation:satisfactory Performing Lab: Notes/Report: Test performed by [employer] [facility] , [address], [place] [address] Brennan Parry MD, Roof Technician CLIA: [id number] Sodium 144 135-145 mmol/L Potassium 4.6 3.5-5.3 [...] Interpretation:Normal Performing Lab: Notes/Report: Test performed by [employer], [address] , [address], [place] [address] Brennan Parry MD, Roof Technician CLIA: [id number] Cholesterol 175 <200 mg/dL Triglycerides 113 <150 [...] Interpretation:Normal Performing Lab: Notes/Report: Test performed by [employer], [address] , [place] [address] Brennan Parry MD, Roof Technician CLIA: [id number] TSH 1.57 0.43-5.25 mU/L REASON FOR VISIT refills Medications Medication SIG (Take, Route, Frequency, Duration) Notes Start Date End Date Status Raloxifene HCl 60 MG TAKE 1 TABLET BY MO [facility] EVERY DAY for 90 days Active Celecoxib 200 MG TAKE 1 CAPSULE EVERY DAY for 90 Active Montelukast Sodium 10 MG TAKE 1 TABLET E VERY DAY for Active Omeprazole 40 MG TAKE 1 CAPSULE ONE T CAMILA DAILY for 90 Active Atorvastatin Calcium 40 MG TAKE 1 TABLET AT BEDTIME for 90 Active ALPRAZolam 0.5 MG 1 tab orally 3 times a day 05/20 Active Spironolactone 25 MG 1 tab(s) orally onc e a day for 90 days Active amLODIPine Besylate 5 MG TAKE 1 TABLET E VERY DAY for 90 days Active Metoprolol Succinate ER 25 MG TAKE 1 TABLET EVERY DAY for 90 Active Losartan Potassium 50 MG TAKE 1 TABLET T WICE DAILY for 90 Active DULoxetine HCl 60 MG TAKE 1 CAPSULE ONE TIME DAILY for 90 Active Ozempic (0.25 or 0.5 MG/DOSE) 2 MG/3ML 0.5 mg subcutaneously once a week for 28 days Active Vitamin B-12 1000 MCG 1 tablet Orally On ce a day for 90 days Active Gabapentin 600 MG 1 tab(s) orally 3 ti mes a day for 30 day(s) 01/06/2024 Active Aspirin Low Dose 81 MG 1 tab(s) orally once a day 04/02/2017 Active Fluticasone Propionate 50 MCG/ACT as directed in each nostril once a day for 30 day(s) Active ProAir Digihaler 108 (90 Base) MCG/ACT 2 puff(s) inhaled three times a day as needed 10/01/2020 Active Symbicort 80-4.5 MCG/ACT 2 puff(s) inhal ed 2 times a day Active Calcium + Vitamin D3 600-5 MG-MCG 1 tab(s) orally 2 times a day Active Loratadine 10 MG 1 capsule Orally Onc e a day for 30 day(s) Active Vital Signs Blood pressure systolic 120 mm Hg 07/22/20 24 Blood pressure diastolic 70 mm Hg 024 Heart Rate 68 /min 07/22/2024 Height 62.25 in 07/22/2024 Weight 189.4 lbs 07/22/2024 BMI 34.36 kg/m2 07/22/2024 Encounters Encounter Location Date [facility] [address] [id number] 07/22/2024 Stepan Aceves Essential hypertensi on I10 [...] 4 Months, Reason: Provider Name:Stepan Cary er, 03/31/2025 09:45:00 AM, [address], [address], [place], [id number], Progress Notes * Lionel ROJOOB:1960 ([age] yo F)Acc No.[id number]:07/22/2024 Progress Notes Patient: Jojo MILLER Provider: Stepan Aceves M.D. :1960 A ge:63 Y S ex:Female Date:07/22/2024 Address:[address] [place] [address], [place], [id number] Subjective: * Chief Complaints: * 1 . [...] 01/19/2013, Normal EMG/NCV of legs, 09/17/2018, Cath [facility] 30% stenosis LAD, 05/19/2019. * Surgical History: D &C , Right knee bone chip removed 1990, TARA/BSO abdominal, [facility] 1994, Heart Cath, near Normal 07/2004, [...] G eneral Examination: General Appearance: N AD. HEENT: P ERRLA, Sclera and conjunctiva clear, nares patent.? Oral cavity: n o lesions, mucosa moist and WNL, no erythema. Neck: s upple, no lymphadenopathy. Chest: n ormal shape and expansion. Heart: R SR. Lungs: c lear to auscultation. Abdomen: soft and nontender. Neurologic Exam: I ntact, gait normal. Skin: n ormal, no rash. Peripheral pulses: n ormal . Back: mild dorsal kyphosis. Extremities: n o leg edema, s urgical scar right knee.? Assessment: * Assessment: 1. E ssential hypertension [...] 113 <150 - mg/dL * Marilu Connelly 07/25/2024 1: 49:51 PM >Patient informed of normal results. * Procedure Codes: 8 5025 CBC WITH AUTO DIFF, 96716 VENIPUNCT, ROUTINE*, 99516 CAPILLARY BLOOD DRAW, 44851 GLYCATED HEMOGLOBIN TEST, Modifiers: QW * Follow Up: 4 Months * Billing Information: * Visit Code: 08355 Office Visit, Est Pt., Level 4. * Procedure Codes: 66864 CBC WITH AUTO DIFF. 09774 VENIPUNCT, ROUTINE*. 22257 CAPILLARY BLOOD DRAW. 09657 GLYCATED HEMOGLOBIN TEST. Modifiers: QW * Electronic signature of Stepan Aceves MD on 02/18/2025 at 08:06 AM EDT Sign off status: Pending * Provider: Stepan Aceves M.D. Date: 1 09/21/2023 Generated for Arleth do/Argelia/eTransmitting on: 0 02/18/2025 08:06 AM EDT History and Physical Notes * HPI (History [...]
--- OUTSIDE RECORDS SUMMARY | 2024-11-25 05:30 | XMS_ITS ---
Author Organization [facility] Address [address] [facility] [address] [place] [id number] Care Team Providers Care Artists' Booking Representative Name Role Phone Stepan Aceves Primary Care [...] Interpretation:Normal Performing Lab: Notes/Report: Test performed by [facility]0 [facility] , [address], [place] [address] Brennan Parry MD, Spreader CLIA: [id number] Sodium 142 135-145 mmol/L Potassium 4.9 3.5-5.3 [...] Interpretation:Normal Performing Lab: Notes/Report: Test performed by [facility] [address] , [address], [place] [address] Brennan Parry MD, Spreader CLIA: [id number] Albumin/Creatinine Ratio, Urine <3.07 0-30 ug/m g Microalbumin, Urine, Random <0.3 Creatinine, Urine 97.7 Holter Monitor- 48 hour Reviewed date:02/14/2025 01:31:21 PM Interpretation: Performing Lab: Notes/Report: Reason For Referral Reason refer to Dr. Guerrero for colonoscopy Diagnosis 1 Screening for colon cancer (Z12.11) Referral Organization [facility] Referring Provider First Name Stepan Oro Referring Provider Last Name Ketna Referring Provider Speciality Family Pra ctice Referred [...] 1 TABLET E VERY DAY for 90 Active Atorvastatin Calcium 40 MG TAKE 1 TABLET AT BEDTIME for 90 Active Omeprazole 40 MG TAKE 1 CAPSULE EVERY DAY for 90 Active amLODIPine Besylate 5 MG TAKE 1 TABLET E VERY DAY for 90 days Active Spironolactone 25 MG 1 tab(s) orally onc e a day for 90 days Active ALPRAZolam 0.5 MG 1 tab orally 3 times a day for 30 day(s) 11/25/2024 Active Metoprolol Succinate ER 25 MG TAKE 1 TABLET EVERY DAY for 90 Active Losartan Potassium 50 MG TAKE 1 TABLET T WICE DAILY for 90 Active DULoxetine HCl 60 MG TAKE 1 CAPSULE ONE TIME DAILY for 90 Active Raloxifene HCl 60 MG TAKE 1 TABLET BY [facility] EVERY DAY for 90 days Active Gabapentin 600 MG 1 tab(s) orally 3 ti mes a day for 30 days 11/25/2024 Active Ozempic (0.25 or 0.5 MG/DOSE) 2 MG/3ML 0.5 mg subcutaneously once a week for 28 days Active Aspirin Low Dose 81 MG 1 tab(s) orally once a day 04/02/2017 Active Vitamin B-12 1000 MCG 1 tablet Orally On ce a day for 90 days Active Calcium + Vitamin D3 600-5 MG-MCG 1 tab(s) orally 2 times a day Active Loratadine 10 MG 1 capsule Orally Onc e a day for 30 day(s) Active ProAir Digihaler 108 (90 Base) MCG/ACT 2 puff(s) inhaled three times a day as needed 10/01/2020 Active Symbicort 80-4.5 MCG/ACT 2 puff(s) inhal ed 2 times a day Active Fluticasone Propionate 50 MCG/ACT as directed in each nostril once a day for 30 day(s) Active Vital Signs Blood pressure systolic 120 mm Hg 11/26/19 25 Blood pressure diastolic 70 mm Hg 025 Heart Rate 62 /min 11/25/2024 Height 62.25 in 11/25/2024 Weight 190.2 lbs 11/25/2024 BMI 34.51 kg/m2 11/25/2024 Encounters Encounter Location Date Provider Diagnosis [facility] [address] [facility] [address] [place], [place] [id number] 11/25/2024 Stepan Aceves Essential hypertensi on I10 [...] onc e a day for 90 days ALPRAZolam 0.5 MG 1 tab orally 3 times a day for 30 day(s) 11/25/2024 Raloxifene HCl 60 MG TAKE 1 TABLET BY [facility] EVERY DAY for 90 days Gabapentin 600 MG 1 tab(s) orally 3 ti mes a day for 30 days 11/25/2024 Referrals Referral Date Details 11/25/2024 11/25/2024, refer to Dr. Guerrero for colonoscopy Next Appt Details Follow Up: 4 Months, Reason: Provider Name:Stepan Cary er, 03/31/2025 09:45:00 AM, [address], [address], [place], [place], [phone], Progress Notes * Lionel ROJOOB:1960 ([age] yo F)Acc No.[id number]:11/25/2024 Progress Notes Patient: Jojo MILLER Provider: Stepan Aceves M.D. :1960 A ge:64 Y S ex:Female Date:11/25/2024 Address:[address], [place], [id number] Subjective: * Chief Complaints: * 1 . [...] for Raloxifene,Gabapentin, Alprazolam and Sipronolactone sent to [facility] in [place]. 64 year old female presents with c/o [...] 01/19/2013, Normal EMG/NCV of legs, 09/17/2018, Cath [facility] 30% stenosis LAD, 05/19/2019. * Surgical History: D &C , Right knee bone chip removed 1990, TARA/BSO abdominal, [facility] 1994, Heart Cath, near Normal 07/2004, cystoscopy , Colonoscopy 2003, 2013, 2014, RT Shoulder 01/09/2010, Cholecystectomy 2004, RT Knee Arthoscopy 09/05/2015, RT Knee Replacement 09/03/2016, RT Hip Replacement 10/14/2017, Hip Steroid Injection 08/26/2018, 10/06/2018, Heart Cath, [facility] 05/2019. * Hospitalization/Major Diagno stic Procedure: C hest Pain 02/2006, Bronchitis, Hives- [facility] ER 08/31/2010, Chest Pain 01/2013. * [...] G 2211 Complex e/[place], [address] CBC WITH AUTO DIFF, 73001 GLYCATED HEMOGLOBIN TEST, Modifiers: QW , 3044F HG A1C LEVEL LT 7.0%, G8752 MOST RECENT SYSTOLIC BP < 140MM HG, G8754 MOST RECENT DIASTOLIC BP < 90MM HG * Follow Up: 4 Months * Billing Information: * Visit Code: 16085 Office Visit, Est Pt., Level 4. * Procedure Codes: G2211 Complex e/[place]. [address] CBC WITH AUTO DIFF. 27962 GLYCATED HEMOGLOBIN TEST. Modifiers: QW 3044F HG A1C LEVEL LT 7.0%. G8752 MOST RECENT SYSTOLIC BP < 140MM HG. G8754 MOST RECENT DIASTOLIC BP < 90MM HG. * Electronic signature of Stepan Aceves MD on 02/18/2025 at 08:05 AM EDT Sign off status: Pending * Provider: Stepan Aceves M.D. Date: 0 11/25/2024 Generated for Arleth do/Argelia/Madelynitting on: 0 02/18/2025 08:05 AM EDT History and Physical [...]
--- OUTSIDE RECORDS SUMMARY | 2025-02-18 08:06 | XMS_ITS | Clinical Summary ---
Author Organization [facility] [employer] Address [address] [place] [address] Care Team Providers Care Natural Developer Name Role Phone Tahir Aceves MD Primary Care Provider [phone] Allergies Active Allergy Reactions Criticality Noted Date Comments Hydrocodone-Acetaminophen Itching 01/14/2010 Penicillin Rash Low 02/18/2023 Rash in mouth Medications spironolactone (ALDACTONE) 25 MG tablet Take 1 tablet (25 mg total) by mouth daily. 3 Active raloxifene (EVISTA) 60 mg tablet Take 1 tablet (60 mg total) by mouth daily. 3 Active omeprazole (PriLOSEC) 40 MG capsule Take 1 capsule (40 mg total) by mouth daily. 3 Active montelukast (SINGULAIR) 10 mg tablet Take 1 tablet (10 mg total) by mouth daily. 3 Active metoprolol succinate (TOPROL-XL) 25 MG 24 hr tablet Take 1 tablet (25 mg total) by mouth daily. 3 Active losartan (COZAAR) 50 MG tablet Take 1 tablet (50 mg total) by mouth 2 (two) times daily. 3 Active gabapentin (NEURONTIN) 300 MG capsule Take 2 capsules (600 mg total) by mouth 4 (four) times daily. 3 Active DULoxetine (CYMBALTA) 60 MG capsule Take 1 capsule (60 mg total) by mouth daily. 3 Active cyanocobalamin (VITAMIN B-12) 1000 MCG tablet Take 1 tablet (1,000 mcg total) by mouth daily. 3 Active celecoxib (CeleBREX) 200 MG capsule Take 1 capsule (200 mg total) by mouth daily. 3 Active Symbicort 160-4.5 mcg/actuation inhaler 2 puffs 2 (two) times daily. 3 Active azelastine (ASTELIN) 137 mcg (0.1 %) nasal spray 2 sprays 2 (two) times daily. 3 Active atorvastatin (LIPITOR) 40 MG tablet Take 1 tablet (40 mg total) by mouth daily. 3 Active amLODIPine (NORVASC) 5 MG tablet Take 1 tablet (5 mg total) by mouth daily. 3 Active ALPRAZolam (XANAX) 0.5 MG tablet Take 1 tablet (0.5 mg total) by mouth 3 (three) times daily. 3 Active semaglutide (Ozempic) 0.25 mg or 0.5 mg (2 mg/3 mL) PnIj Inject 0.5 mg subcutaneously every 7 days TAKES ON THURSDAY. Active calcium carbonate/merlin min D3 (CALCIUM 600 + D,3, ORAL) Take 1 tablet by mouth 2 (two) times daily. Active albuterol sulfate 90 mcg/actuation aebs Inhale 180 mcg by mouth via inhaler every 4 (four) hours as needed. Active ondansetron (ZOFRAN) 4 MG tablet Take 1 tablet (4 mg total) by mouth 4 (four) times daily as needed for Nausea for up to 60 doses. 30 tablet 3 Active Social History Tobacco Use Types Packs/Day Years Used Date Smoking Tobacco: Never Smokeless Tobacco: Never Tobacco Cessation:Counseling Given: Not Answered Alcohol Use Standard Drinks/Week Comments Not Currently 0 (1 standard drink = 0.6 oz pur e alcohol) Humiliation, Afraid, Rape, and Kick questionnair e Answer Date Recorded Within the last year, have y ou been afraid of your partner or ex-partner? No 02/19/2023 Within the last year, have y ou been humiliated or emotionally abused in other ways by your partner or ex-partner? No Within the last year, have y ou been kicked, hit, slapped, or otherwise physically hurt by your partner or ex-partner? No 02/19/2023 Within the last year, have y ou been raped or forced to have any kind of sexual activity by your partner or ex-partner? No 02/19/2023 PHQ-2 Answer Date Recorded Patient Health Questionnaire-2 Score 0 02/19/2023 [facility] Intimate Partner Violence Answer Da te Recorded Within the last year, have y ou been afraid of your partner or ex-partner? No 02/19/2023 Within the last year, have y ou been humiliated or emotionally abused in other ways by your partner or ex-partner? No Within the last year, have y ou been kicked, hit, slapped, or otherwise physically hurt by your partner or ex-partner? No 02/19/2023 Within the last year, have y ou been raped or forced to have any kind of sexual activity by your partner or ex-partner? No 02/19/2023 Interpersonal Safety Answer Date Record ed Family or friends hurt you Not on file 09/25 Family or friends insult you Not on file Family or friends threaten you Not on file 0 09/25/2023 Family or friends scream or curse at you Not on file 09/25/2023 Housing Stability Answer Date Recorded Living situation today Not on file Living situation problems Not on file 2023 Food Insecurity Answer Date Recorded Food run out past 12 months Not on file 09/07 Food did not last past 12 months Not on file 09/25/2023 Employment Answer Date Recorded Help finding and keeping a job Not on file 0 09/25/2023 Family and Community Support Answer Mark e Recorded Help with Day to Day Activities Not on file 09/25/2023 Feeling Lonely or Isolated Not on file 09/25 Educational Attainment Answer Date Darryn rded Speak language other than Brazilian at home Not on file 09/25/2023 Want help with school or training Not on file 09/25/2023 Depression Answer Date Recorded PHQ-2 Risk Not on file 09/25/2023 Disabilities Answer Date Recorded Difficulty concentrating Not on file 024 Difficulty doing errands alone Not on file 0 09/25/2023 Substance Use Answer Date Recorded Used prescription meds for non-medical reasons N ot on file 09/25/2023 Used illegal drugs past 12 months Not on file 09/25/2023 Comments No Sex and Gender Information Value Date Recorded Sex Assigned at Female 03/09/2023 12:37 PM CDT Legal Sex Female 5:17 PM CDT Gender Identity Female 03/09/2023 12:37 PM CDT Sexual Orientation Not on file Last Filed Vital Signs Vital Sign Reading Time Taken Comments Blood Pressure 112/52 03/10/2023 11:36 AM EDT Pulse 73 03/10/2023 11:36 AM EDT Temperature 36.6 C (97.9 F) 03/10/2023 1:11 AM EDT Respiratory Rate 17 03/10/2023 10:18 AM EDT Oxygen Saturation 99% 03/10/2023 10:18 AM EDT Inhaled Oxygen Concentration - - Weight 88.7 kg (195 lb 8 oz) 02/19/2023 10:59 AM EDT Height 166.4 cm (5' 5.5 ) 02/19/2023 10:59 AM ED T Body Mass Index 32.04 02/19/2023 10:59 AM EDT Plan of Treatment Health Maintenance Due Date Last Done Comments CT Colonography 1959 Colonoscopy 1959 Colorectal Cancer Screening 1959 DXA SCAN 1959 FOBT/FIT 1959 Fit-DNA (Cologuard) 1959 Sigmoidoscopy 1959 Depression Screening (12+) 1971 HIV Screening 1974 Hepatitis C Screening 1977 DTAP/TDAP/TD VACCINES (1 - Tdap) 1978 Pap Smear 1980 Breast Cancer Screening 1999 Lipid Panel 2004 Pneumococcal 50+ years (1 of 1 - PCV) 2009 Shingles Vaccine (Zoster) (1 of 2) 2009 Medicare Initial AWV G0438 12/08/2023 Tobacco Cessation Counseling and Screening (12+) 03/0903/09/2023 COVID-19 VACCINE ( season) 2024 Falls Risk Screening 09/07/2024 Influenza Vaccine (Season Ended) 2025 Respiratory Syncytial Virus (RSV) Adult or (1 - 1-dose 75+ series) 2034 Medical Devices Implanted Type Area Gaming Cage Cashier Device Identifier Shelf Expiration Date Model / Serial / Lot Scr Low Profile 6.5x20mm 8429-1435 - [id number] Implanted:Qt y: 1 on 03/09/2023 by Nicole Ordaz MD at [facility] IMPLANTS Left: Hip JERRY:[employer] [id number] 09/30/2027 [id number] / / UDUA Scr Low Profile 6.5x25mm [id number] - [id number] Implanted:Qt y: 1 on 03/09/2023 by Nicole Ordaz MD at [facility] IMPLANTS Left: Hip JERRY:[employer] [id number] 12/22/2027 [id number] / / [id number] Shell Trident Ii Tri Clusterhl 702-04-50d - [id number] Implanted:Qt y: 1 on 03/09/2023 by Nicole Ordaz MD at [facility] TOTAL JOINT CONSTRUCT Left: Hip [employer]Y:[employer] [id number] 09/14/2027 702-04-50 D / / [id number] Insrt Trident Poly X3 36mm D 723-00-36d - [id number] Implanted:Qt y: 1 on 03/09/2023 by Nicole Ordaz MD at [facility] TOTAL JOINT CONSTRUCT Left: Hip [employer]Y:[employer] [id number] 02/09/2028 723-00-36 D / / [id number] Stem Hip Insig Hi Off Sz2 [id number] - [id number] Implanted:Qt y: 1 on 03/09/2023 by Nicole Ordaz MD at [facility] TOTAL JOINT CONSTRUCT Left: Hip EJRRY:[employer] [id number] 11/19/2027 2252-6301 / / [id number] Head Fem Ceramic V40 36mm 6570-0-136 - [id number] Implanted:Qt y: 1 on 03/09/2023 by Nicole Ordaz MD at [facility] TOTAL JOINT CONSTRUCT Left: Hip [employer]Y:[employer] [id number] 01/08/2028 6570-0-13 / [id number] Insurance [employer] MEDICARE PPO GENERIC COMMERCIAL Advance Directives For more information, please contact: [phone] * Full Code (Latest Code Status on File) Date Activated Date Inactivated Comments 03/09/2023 11:33 AM 03/10/2023 12:59 PM * Full Code Date Activated Date Inactivated Comments 03/09/2023 5:46 AM 03/09/2023 11:33 AM Care Teams Natural Developer Relationship Specialty Start Date End Date Tahir Aceves MD [address] [place] [address] PCP - General Family Medicine 02/19/23
--- OUTSIDE RECORDS SUMMARY | 2025-02-18 08:06 | XMS_ITS | Patient Health Record ---
Author Organization [facility] Address [address] [place] [id number] Care Team Providers Care Filter Bed Placer Name Role Phone Stepan Aceves Primary Care Provider Jeremías Miller Unavailable [phone] Brendan Gipson Unavailable [phone] Allergies Allergen (clinical drug ingredient) Drug/Non Drug [...] Interpretation:Normal Performing Lab: Notes/Report: Test performed by [facility], [place] [address] [place] [address] , [address], [place] [address] Brennan Parry MD, Stamp Pad Finisher CLIA: [id number] Sodium 142 135-145 mmol/L Potassium 4.9 3.5-5.3 [...] Interpretation:Normal Performing Lab: Notes/Report: Test performed by [facility] [address] [place] [address] , [address], [place] [address] Brennan Parry MD, Stamp Pad Finisher CLIA: [id number] Albumin/Creatinine Ratio, Urine <3.07 0-30 ug/m g Microalbumin, Urine, Random <0.3 Creatinine, Urine 97.7 Holter Monitor- 48 hour Reviewed date:02/14/2025 01:31:21 PM Interpretation: Performing Lab: Notes/Report: CBC Venipuncture (in house) Reviewed date:07/22/2024 12:49:21 [...] Interpretation:satisfactory Performing Lab: Notes/Report: Test performed by [facility] [address] [place] [address] , [address], [place] [address] Brennan Parry MD, Stamp Pad Finisher CLIA: [id number] Sodium 144 135-145 mmol/L Potassium 4.6 3.5-5.3 [...] Interpretation:Normal Performing Lab: Notes/Report: Test performed by [facility] [address] [place] [address] , [address], [place] [address] Brennan Parry MD, Stamp Pad Finisher CLIA: [id number] Cholesterol 175 <200 mg/dL Triglycerides 113 <150 [...] Interpretation:Normal Performing Lab: Notes/Report: Test performed by [facility], [address] , [place] [address] Brennan Parry MD, Stamp Pad Finisher CLIA: [id number] TSH 1.57 0.43-5.25 mU/L Medications Medication SIG (Take, Route, Frequency, Duration) Notes Start Date End Date Status Raloxifene HCl 60 MG TAKE 1 TABLET BY [facility] EVERY DAY for 90 days Active Spironolactone 25 MG 1 tab(s) orally onc e a day for 90 days Active Celecoxib 200 MG TAKE 1 CAPSULE EVERY DAY for 90 Active Gabapentin 600 MG 1 tab(s) orally 3 ti mes a day for 30 days 11/25/2024 Active Montelukast Sodium 10 MG TAKE 1 TABLET E VERY DAY for 90 Active ALPRAZolam 0.5 MG 1 tab orally 3 times a day for 30 day(s) 11/25/2024 Active Aspirin Low Dose 81 MG 1 tab(s) orally o nce a day 04/02/2017 Active Atorvastatin Calcium 40 MG TAKE 1 TABLET AT BEDTIME for 90 Active Vitamin B-12 1000 MCG 1 tablet Orally On ce a day for 90 days Active Omeprazole 40 MG TAKE 1 CAPSULE EVERY DAY for 90 Active Calcium + Vitamin D3 600-5 MG-MCG 1 tab(s) orally 2 times a day Active Metoprolol Succinate ER 25 MG TAKE 1 TABLET EVERY DAY for 90 Active Loratadine 10 MG 1 capsule Orally Onc e a day for 30 day(s) Active Losartan Potassium 50 MG TAKE 1 TABLET T WICE DAILY for 90 Active Ozempic (0.25 or 0.5 MG/DOSE) 2 MG/3ML ADMINISTER 0.5MG UNDER THE SKIN ONCE WEEKLY for 28 Active ProAir Digihaler 108 (90 Base) MCG/ACT 2 puff(s) inhaled three times a day as needed 10/01/2020 Active amLODIPine Besylate 5 MG TAKE 1 TABLET E VERY DAY for 90 days Active Symbicort 80-4.5 MCG/ACT 2 puff(s) inhal ed 2 times a day Active DULoxetine HCl 60 MG TAKE 1 CAPSULE ONE TIME DAILY for 90 Active Fluticasone Propionate 50 MCG/ACT as directed in each nostril once a day for 30 day(s) Active Immunizations Vaccine Route Administration Date Status Comme nts Tetanus Tdap-Adacel (over 7yrs) IM Intramuscular 11/09/2017 Administered PNEUMOVAX 23 VACCINE IM Intramuscular 11/09/2017 Administe red Fluzone Quad (6months&older) IM Intramuscular 06/28/2018 Administered Fluzone Quad (6months&older) IM Intramuscular 06/27/2019 Administered Fluzone PF Quad (6-35 months) Unknown 05/24/2020 Administered Flublok Unknown 06/12/2021 Administered COVID 19 Moderna Unknown 07/24/2021 Administered COVID 19 Kavita Unknown 11/15/2020 Administered Problems Problem Type SNOMED Code ICD Code Onset Dates Problem Status W/U Status Risk Notes Problem 34148299 Essential hypertension (I10) Active confirmed Problem 69265440 Anxiety (F41.9) Active confirmed Problem 952059614699668 Piriformis syndrome of left side (G57.02) Active confirmed Problem 435712613 Depression with anxiety (F41.8) Active confirmed Problem 907289503 Rheumatoid facto r positive (R76.8) Active confirmed Problem 435762883 Lumbago with sciatica, right side (M54.41) Active confirmed Problem 056124953 Mixed hyperlipidemia (E78.2) Active confirmed Problem 90362008 Other chronic pain (G89.29) Active confirmed Problem 100099721 Onychomycosis (B35.1) Active confirmed Problem 671007256 GERD without esophagitis (K21.9) Active confirmed Problem 46078530 Other chronic pain (G89.29) Active confirmed Problem 62820556 Myofasciitis (M60.9) Active confirmed Problem 592323618 Cervical disc disease (M50.90) Active confirmed Problem 953583230 BMI 36.0-36.9,adult (Z68.36) Active confirmed Problem Osteoporosis (97680270) Osteoporosis (M81.0) Active confirmed Problem 443710641 Screening for colon cancer (Z12.11) Active confirmed Problem 939409413 History of right hip replacement (Z96.641) Active confirmed Problem 39129933 Seasonal allergi c rhinitis due to pollen (J30.1) Active confirmed Problem 843344988 Type 2 diabetes mellitus without complication, without long-term current use of insulin (E11.9) Active confirmed Problem 2287370559844 H/o total knee replacement, right (Z96.651) Active confirmed Problem 588105596 Osteopenia, unspecified location (M85.80) Active confirmed Problem 68985499 Fibrocystic breast disease (FCBD), unspecified laterality (N60.19) Active confirmed Problem 882165756 Moderate persistent asthmatic bronchitis without complication (J45.40) Active confirmed Problem 3124769899647677 Arthritis of le ft hip (M16.12) Active confirmed Problem 827866320111 Status post tota l hip replacement, left (Z96.642) Active confirmed Problem 159305334 Skin ulcer of right ankle, limited to breakdown of skin (L97.311) Active confirmed Vital Signs Heart Rate 62 /min 11/25/2024 Blood pressure diastolic 70 mm Hg 11/25/2024 Height 62.25 in 11/25/2024 Blood pressure systolic 120 mm Hg 11/25/2024 Weight 190.2 lbs 11/25/2024 BMI 34.51 kg/m2 11/25/2024 Encounters Encounter Location Date Provider Diagnosis [facility] [address] [facility] [address] [place] [id number] 05/20/2024 Stepan Aceves Anxiety F41.9 ; Essential hypertension I10 and History of right hip replacement Z96.641 [facility] [address] [place], [place] [id number] 07/22/2024 Stepan Aceves Essential hypertensi on I10 ; History of right hip replacement Z96.641 ; Status post total hip replacement, left Z96.642 ; Type 2 diabetes mellitus without complication, without long-term current use of insulin E11.9 ; Other chronic pain G89.29 ; Osteopenia, unspecified location M85.80 ; Moderate persistent asthmatic bronchitis without complication J45.40 ; Other hyperlipidemia E78.4 and Mixed hyperlipidemia E78.2 [facility] [facility] [address] [place], [place] [id number] 11/25/2024 Stepan Aceves Essential hypertensi on I10 ; Depression with anxiety F41.8 ; Mixed hyperlipidemia E78.2 ; History of right hip replacement Z96.641 ; Palpitations R00.2 ; Other chronic pain G89.29 ; Screen for colon cancer Z12.11 and Type 2 diabetes mellitus without complication, without long-term current use of insulin E11.9 [facility] [facility] [address] [place], [place] [id number] 04/19/2024 Jeremías Miller Depression with anxi ety F41.8 [facility] [facility] [address] [place], [place] [id number] 08/18/2024 Stepan Aceves [facility] [facility] [address] [place], [place] [id number] 09/01/2024 Stepan Aceves Other chronic pain G89.29 and Anxiety F41.9 [facility] [facility] [place], [place] [id number] 11/08/2024 Brendan Gipson Depression with anxi ety F41.8 [facility] [facility] [address] [place] [id number] 02/14/2025 Stepan Aceves Assessments Encounter Date Diagnosis (ICD Code) Assessment Notes Treatment Notes Treatment Clinical Notes Section Notes 11/25/2024 Depression with anxiety (ICD-10 - F41.8) 11/25/2024 Essential hypertension (ICD-10 - I10) 11/08/2024 Depression with anxiety (ICD-10 - F41.8) 09/01/2024 Other chronic pain (ICD-10 - G89.29) 07/22/2024 Essential hypertension (ICD-10 - I10) 07/22/2024 History of right hip replacement (ICD-10 - Z96.641) 04/19/2024 Depression with anxiety (ICD-10 - F41.8) 05/20/2024 Essential hypertension (ICD-10 - I10) 05/20/2024 Anxiety (ICD-10 - F41.9) 05/20/2024 History of right hip replacement (ICD-10 - Z96.641) 07/22/2024 Status post total hip replacement, left (ICD-10 - Z96.642) 09/01/2024 Anxiety (ICD-10 - F41.9) 11/25/2024 Mixed hyperlipidemia (ICD-10 - E78.2) 11/25/2024 History of right hip replacement (ICD-10 - Z96.641) 07/22/2024 Type 2 diabetes mellitus without complication, without long-term current use of insulin (ICD-10 - E11.9) 07/22/2024 Other chronic pain (ICD-10 - G89.29) 11/25/2024 Palpitations (ICD-10 - R00.2) 11/25/2024 Other chronic pain (ICD-10 - G89.29) 07/22/2024 Osteopenia, unspecified location (ICD-10 - M85.80) 07/22/2024 Moderate persistent asthmatic bronchitis without complication (ICD-10 - J45.40) 11/25/2024 Screen for colon cancer (ICD-10 - Z12.11) 11/25/2024 Type 2 diabetes mellitus without complication, without long-term current use of insulin (ICD-10 - E11.9) 07/22/2024 Other hyperlipidemia (ICD-10 - E78.4) 07/22/2024 Mixed hyperlipidemia (ICD-10 - E78.2) Plan Of Treatment Pending Test Test Name Order Date LC-Sedimentation Rate-Westergren 022 Holter - 7 day 02/17/2025 Next Appt Details Provider Name:Stepan Oro Coop er, 03/31/2025 09:45:00 AM, [address], [address], [place], [place], [id number], Insurance Providers Payer Name Payer Address Payer Phone Subscriber Number Group Number Insured Name Patient Relationship to Insured Coverage Start Date Coverage End Date [employer] (MEDICARE) [address] [address] [place] [address] [phone] [id number] Joséjuan Jojo Self - patient is the insured [employer] [address] [place] [address] [id number] Reinaldo Floresy Self - patient is the insured Medications Administered Medication Instructions Date of Administration Dosage Notes B-12 10/01/2022 1 mL depo medrol 80 mg 09/22/2018 1 mL Depo- Medrol 40 mg/ml 04/06/2012 Depo- Medrol 40 mg/ml 07/21/2014 1 mL Depo- Medrol 40 mg/ml 07/26/2014 1 mL Depo- Medrol 40 mg/ml 11/27/2022 1.5 mL Dexamethasone 10/01/2020 1 mL Dexamethasone 11/28/2020 1 mL Dexamethasone 08/12/2022 1 mL Medical (General) History Medical History History ICD Code AIT Hypertension Hyperlipidemia Normal Heart Cath, 07/2004 Neg Cardiolyte GXT, 02/03/2013 TSH=1.6, 01/19/2013 Normal EMG/NCV of legs, 09/17/2018 Cath [facility] 30% stenosis LAD, 05/19/2019 Surgical History Surgery Date(Month/Year) D&C Right knee bone chip removed 1990 TARA/BSO abdominal, [facility] 1994 Heart Cath, near Normal 07/2004 cystoscopy Colonoscopy 2003, 2013, 2014 RT Shoulder 01/09/2010 Cholecystectomy 2005 RT Knee Arthoscopy 09/05/2015 RT Knee Replacement 09/03/2016 RT Hip Replacement 10/14/2017 Hip Steroid Injection 08/26/2018, 019 Heart Cath, [facility] 05/2019 Hospitalization History Reason Date(Month/Year) Chest Pain 02/2006 Bronchitis, Hives- [facility] ER 08/31/2010 Chest Pain 01/2013
--- OUTSIDE RECORDS SUMMARY | 2025-02-18 08:07 | XMS_ITS | Referral Summary ---
Author Organization [employer] Address [address] [place] [address] Care Team Providers Care Network Solutions Architect Name Role Phone Tahir Aceves MD Primary Care Provider [phone] Allergies Active Allergy Reactions Criticality Noted Date [...] Date Darryn rded Speak language other than Cypriot at home Not on file 09/25/2023 Want [...] 02/19/2023 10:59 AM EDT Plan of Treatment Not on file Medical Devices Implanted Type Area Supervisor Concrete Block Plant Device Identifier Shelf Expiration Date Model / Serial / Lot Scr Low Profile 6.5x20mm [id number] - [id number] Implanted:Qt y: 1 on 03/09/2023 by Nicole Ordaz MD at [facility] IMPLANTS Left: Hip JERRY:[employer] [id number] 09/30/2027 5905-8031 / / UDUA Scr Low Profile 6.5x25mm 9120-5314 - [id number] Implanted:Qt y: 1 on 03/09/2023 by Nicole Ordaz MD at [facility] IMPLANTS Left: Hip [employer]Y:[employer] [id number] 12/22/2027 8485-3714 / / [id number] Trident Ii Tri Clusterhl 702-04-50d - [id number] Implanted:Qt y: 1 on 03/09/2023 by Nicole Ordaz MD at [facility] TOTAL JOINT [employer]STRU[employer] Left: Hip [employer]Y:[employer] [id number] 09/14/2027 702-04-50 D / / [id number] Insrt Trident Poly X3 36mm D 723-00-36d - [id number] Implanted:Qt y: 1 on 03/09/2023 by Nicole Ordaz MD at [facility] [employer] Left: Hip [employer] [id number] 02/09/2028 723-00-36 D / / [id number] Stem Hip Insig Hi Off Sz2 6683-2816 - [id number] Implanted:Qt y: 1 on 03/09/2023 by Nicole Ordaz MD at [facility] [employer] Left: Hip [employer] [id number] 11/19/2027 2187-9498 / / [id number] Head Fem Ceramic V40 36mm 6570-0-136 - [id number] Implanted:Qt y: 1 on 03/09/2023 by Nicole Ordaz MD at [facility] [employer] Left: Hip [employer] [id number] 01/08/2028 6570-0-13 6 / / [id number] Insurance [facility] MEDICARE PPO GENERIC COMMERCIAL Advance Directives For more information, please contact: [phone] * Full Code (Latest Code Status on File) Date Activated Date Inactivated Comments 03/09/2023 11:33 AM 03/10/2023 12:59 PM * Full Code Date Activated Date Inactivated Comments 03/09/2023 5:46 AM 03/09/2023 11:33 AM Care Teams Network Solutions Architect Relationship Specialty Start Date End Date Tahir Aceves MD [address] [place] [address] PCP - General Family Medicine 02/19/23
--- OUTSIDE RECORDS SUMMARY | 2025-02-18 08:07 | XMS_ITS | Data Portability ---
Author Organization [facility] KAY Cochran CUSTER CLOSED Address [address] [place] [address] Care Team Providers Care Bass Singer Name Role Phone Stepan GOMEZ Primary Care Provider GATO SANDHU Orthopedic Surgeon Assessment No assessment recorded. Plan of Treatment Reminders Order Date Submit Date Provider Last Modified By Organization Details Last Modified Time Details Appointments None recorded. Lab None recorded. Referral physical therapist referral 2023 024 [facility], [address], [place], [address], 12:15:16 Procedures None recorded. Surgeries None recorded. Imaging None recorded. Medication Orders None recorded. Patient TargetsNo targets recorded. Patient InstructionsNo instructions recorded. Reason for Referral Physical Therapist Referral for Iliotibial band friction syndrome Referring Physician: Gloria Lopez, Orthopedic Surgery, Encounter Date: 05/27/2024 Results Created Date Observation Date Name Description Value Unit Range Abnormal Flag Note LastModifiedBy Organization Detail LastModifiedTime 02/20/20 23 02/19/2023 elect rocar diogr am No observ ation record ed. [email or web address] [facility] [address] [place], [address], 02/19/2023 15:04:55 04/01/20 23 04/01/2023 XR, hip, unila teral , 2 or 3 view [facility] [place] [place] [address] [place] [address] Patien t Name: JOJO zaragoza : 958 Mary zaragoza Orderchava ng Provid er: GATO SALVADOR EXAM DATE: 2022 EXAM: XR LT HIP UNILAT ERAL, 2 OR 3 VWS COMPAR SUSANNAH: 01/08/20 23 HISTOR Y: Follow -up of prior surger y. FINDIN GS: There has been interv al placem ent of a left hip total arthro plasty . There is no eviden ce of loosen ing. No fractu re is identi fied. There is also a total hip arthro plasty in the contra latera l hip. IMPRES SONDRA: 1. There is a left hip total arthro plasty in place withou t eviden ce of loosen ing. Interp reted By: Beth fernandez MD Electr onical ly Signed By: Beth fernandez MD on 023 11:42 AM [facility] [place] [address] , [place], [address], 04/04/2023 07:10:15 04/24/20 23 04/24/2023 XR, pelvi s, 1 or 2 view [facility] [place] [address] [place] [address] Mary t Name: JOJO zaragoza : 958 Mary zaragoza Orderi ng Provid er: Mireille BROWN SON EXAM DATE: 2022 EXAM: XR PELVIS AP ONLY COMPAR SUSANNAH: 023 HISTOR Y: Pain. Surger y follow -up FINDIN GS: Stable appear ance of bilate ral total hip replac ements . The alignm ent is normal . No loosen ing or fractu re is noted. IMPRES SONDRA: Stable uncomp licate d appear ing bilate ral total hip replac ements Interp reted By: Doreen Haskins MD Electr onical ly Signed By: Doreen Haskins MD on 023 12:29 PM [facility] [place] [address] , [place], [address], 05/07/2023 09:36:02 04/24/20 23 04/24/2023 XR, knee, 4 or more view [facility] [address] [place] [address] Patijax t Name: JOJO zaragoza : 958 Patijax t Orderi ng Provid er: Mireille BROWN SON EXAM DATE: 2022 EXAM: XR LT KNEE COMPLE TE, 4 OR MORE VWS COMPAR SUSANNAH: None. HISTOR Y: Knee pain FINDIN GS: There is mild narrow ing the medial compar tment with mild degene rative spurri ng. There is more modera te degene rative change of the patell ofemor al joint. No fractu re or disloc ation. Contra latera l knee: Grossl y uncomp licate d appear ing total knee replac ement IMPRES SONDRA: 1. There are modera te degene rative change s in the left knee. Interp reted By: Doreen Haskins MD Electr onical ly Signed By: Doreen Haskins MD on 12:31 PM [facility] [address] , [place], [address], 05/07/2023 09:36:03 07/02/20 23 07/02/2023 XR, pelvi s, 1 or 2 view [facility] [address] [place] [address] Patijax t Name: JOJO zaragoza : 958 Patijax t Orderi ng Provid er: GATO SALVADOR EXAM DATE: 2022 EXAM: XR PELVIS AP ONLY COMPAR SUSANNAH: 023 HISTOR Y: Follow -up of prior surger y. FINDIN GS: There are bilate ral hip total arthro plasti es. There is no eviden ce of loosen ing. No fractu re is identi fied. Threse are mild degene rative change s in the pubic symphy sis and SI joints . IMPRES SONDRA: 1. There are bilate ral hip total arthro plasti es in place withou t eviden ce of loosen ing. Interp reted By: Beth fernandez MD Electr onical ly Signed By: Beth fernandez MD on 2022 10:53 AM [email or web address] [address] , [place], [address], 07/04/2023 19:14:29 05/27/20 24 05/27/2024 XR, pelvi s, 1 or 2 view [facility] [address] [place] [address] Patien t Name: JOJO FLORES Patijax t : 958 Patien t Orderi ng [facility] er: GLORIA LOPEZ EXAM DATE: 2023 EXAM: XR PELVIS AP ONLY COMPAR SUSANNAH: 2022 HISTOR Y: Follow -up of prior surger amy ELVIE GS: There are bilate ral hip total arthro plasti es. There is no eviden ce of loosen ing. No fractu re is identi fied. Threse are mild degene rative change s in the SI joints . IMPRES SONDRA: 1. There are bilate ral hip total arthro plasti es in place withou t eviden ce of loosen ing. Interp reted By: Beth fernandez MD Electr onical ly Signed By: Beth fernandez MD on 024 8:18 AM [email or web address] [address] , [place], [address], 05/27/2024 12:53:01 Result Notes Documentation Provider Name and Address Organization Details Recorded Time Xr, Hip, Unilateral, 2 Or 3 View : [facility] [address] [place] [address] Patient Name: JOJO FLORES Patient : 1960 Patient Ordering Provider: GATO SANDHU EXAM DATE: 04/01/2023 EXAM: XR LT HIP UNILATERAL, 2 OR 3 VWS COMPARISON: 01/07/2023 HISTORY: Follow-up of prior surgery. FINDINGS: There has been interval placement of a left hip total arthroplasty. There is no evidence of loosening. No fracture is identified. There is also a total hip arthroplasty in the contralateral hip. IMPRESSION: 1. There is a left hip total arthroplasty in place without evidence of loosening. Interpreted By: Navdeep Wilson MD SANDHU MD [facility] [place], [address], [facility] 04/04/2023 07:10:15 Xr, Pelvis, 1 Or 2 View : [facility] [address] [place] [address] Patient Name: JOJO FLORES Patient : 1960 Patient Ordering Provider: Mireille SIERRA EXAM DATE: 04/24/2023 EXAM: XR PELVIS AP ONLY COMPARISON: 04/01/2023 HISTORY: Pain. Surgery follow-up FINDINGS: Stable appearance of bilateral total hip replacements. The alignment is normal. No loosening or fracture is noted. IMPRESSION: Stable uncomplicated appearing bilateral total hip replacements Interpreted By: Doreen Haskins MD Emily SIERRA PA-C [address] [place] [address], [address], [facility] 05/07/2023 09:36:02 Xr, Knee, 4 Or More View : [facility] [address] [place] [address] Patient Name: JOJO FLORES Patient : 1960 Patient Ordering Provider: Mireille SIERRA EXAM DATE: 04/24/2023 EXAM: XR LT KNEE COMPLETE, 4 OR MORE VWS COMPARISON: None. HISTORY: Knee pain FINDINGS: There is mild narrowing the medial compartment with mild degenerative spurring. There is more moderate degenerative change of the patellofemoral joint. No fracture or dislocation. Contralateral knee: Grossly uncomplicated appearing total knee replacement IMPRESSION: 1. There are moderate degenerative changes in the left knee. Interpreted By: Doreen Haskins MD Emily SIERRA PA-C [address] [place], [address], [facility] 05/07/2023 09:36:03 Xr, Pelvis, 1 Or 2 View : [facility] [address] [place] [address] Patient Name: JOJO FLORES Patient : 1960 Patient Ordering Provider: GATO SANDHU EXAM DATE: 07/02/2023 EXAM: XR PELVIS AP ONLY COMPARISON: 04/24/2023 HISTORY: Follow-up of prior surgery. FINDINGS: There are bilateral hip total arthroplasties. There is no evidence of loosening. No fracture is identified. Threse are mild degenerative changes in the pubic symphysis and SI joints. IMPRESSION: 1. There are bilateral hip total arthroplasties in place without evidence of loosening. Interpreted By: Navdeep Wilson MD SANDHU MD [facility] [place], [address], [facility] 07/04/2023 19:14:29 Xr, Pelvis, 1 Or 2 View : [facility] [address] [place] [address] Patient Name: JOJO FLORES Patient : 1960 Patient Ordering Provider: GLORIA LOPEZ EXAM DATE: 05/27/2024 EXAM: XR PELVIS AP ONLY COMPARISON: 07/02/2023 HISTORY: Follow-up of prior surgery. FINDINGS: There are bilateral hip total arthroplasties. There is no evidence of loosening. No fracture is identified. Threse are mild degenerative changes in the SI joints. IMPRESSION: 1. There are bilateral hip total arthroplasties in place without evidence of loosening. Interpreted By: Navdeep Wilson MD IA LOPEZ PA-C [address] [place] [address], [phone], [facility] 05/27/2024 12:53:01 Problems Name Problem SNOMED Code Status Onset Date Resolution Date Notes Provider Name and Address Organization Details Recorded Time Greater trochante milly pain syndrome 3576065 Active 2017 GATO Willams MD [address] [place] [address], [phone] [place] [address] 8 09:16:09 History of total hip arthropla sty 52410690355 6 Active 2022 GATO Willams MD [address] [place] [address], [phone] [place] [address] 3 11:29:17 Pain in right knee Active 2014 From Automated Load;Prov ider: Shakeel Cortes; atus: Active Not Available [facility], [facility] 6 07:57:12 Idiopathi c osteoarth ritis 942885269 Active 2015 From Automated Load;Prov ider: Shakeel Cortes;St atus: Active Not Available [facility] 6 07:57:12 Problem Notes None recorded. Procedures Surgical History Date Name Laterality Status Provider Name and Address Organization Details Recorded Time 04/24/20 23 Injection Joint/Bursa, Major completed C MAIA SIERRA PA-C [address] [place] [address], [phone], [facility] 04/24/2023 12:45:52 03/09/20 23 Total hip arthroplasty completed Kelsi Galvan [facility] 04/01/2023 11:45:57 10/06/19 19 Injection, Joint; Sacrococcygeal completed KEYSHA LE MD [address] [place] [address], [address], [facility] 10/06/2018 09:37:06 10/06/19 19 Injection Bursa; Hip completed KEYSHA LE MD [address] [place] [address], [address], [facility] 10/06/2018 09:37:02 08/26/20 18 Injection, Joint; Sacrococcygeal completed KEYSHA LE MD [address] [place], [address], [facility] 08/26/2018 14:33:31 08/26/20 18 Injection Bursa; Hip completed KEYSHA LE MD [address] [place], [address], [facility] 08/26/2018 14:33:17 07/22/20 18 Injection Joint/Bursa, [place] [address] [place] [address], [phone] 07/22/2018 20:32:16 03/26/20 18 Injection Joint/Burs[place], [place] [address] [place] [address], [phone] 03/26/2018 09:14:45 10/14/19 18 [facility]2017 11:03:21 09/03/20 16 Total knee arthroplasty completed Keysha Brantley [facility] 10/28/2016 09:49:08 replacement of right knee joint completed Beata [facility] 08/20/2018 08:38:21 total replacement of right hip joint completed Beata [facility] 08/20/2018 08:38:30 complete repair of rotator cuff completed Beata [facility] 08/20/2018 08:38:47 Total Hysterectomy completed Rebecc a [facility] 08/20/2018 08:38:56 Imaging Results None recorded. Procedure Notes None recorded. Medical Equipment None Reported. Allergies Allergen ID Allergen Name Allergen Category Reaction Reaction Severity Criticality Documentation Date Start Date Code Code System Note Provider Name and Address Organization Details Recorded Time 185529 Product containin g penicilli n (product) medicatio n Not available Not available Not available 08/01/20162009 39149 800 SNOMED Comme nt: Creat ed By: Jared adlerCre ated Date: 010 8:32: 04 AM; Not Available [facility] 6 05:39:20 824335 acetamino phen / hydrocodo ne medicatio n itching Not available Not available 08/01/20162009 31423 2 RxNorm React ion: ITCHI NG; Comme nt: vomit ing;C reate d By: Jared adlerCre ated Date: 2009 10:19 :48 AM; Not Available [facility] 6 05:39:20 Medications Name Sig Start Date Stop Date Status Note LastModified by Organization Details LastModified Time losartan 50 mg tablet Take 1 tablet every day by oral route. active Not Available Not Available No t Available cyclobenz aprine 10 mg tablet Take 1 tablet every 8 hours by oral route. 01/07 completed Not Available Not Available Not Available atorvasta tin 40 mg tablet Take 1 tablet every day by oral route. active Not Available Not Available No t Available Xanax 0.5 mg tablet Take 1 tablet 3 times a day by oral route. active Not Available Not Available No t Available Claritin 10 mg tablet Take 1 tablet every day by oral route. active Not Available Not Available No t Available meloxicam 15 mg tablet Take 1 tablet every day by oral route. 01/07 completed Not Available Not Available Not Available amlodipin e 5 mg tablet Take 1 tablet every day by oral route. active Not Available Not Available No t Available spironola ctone 25 mg tablet Take 1 tablet every day by oral route. active Not Available Not Available No t Available Celebrex 200 mg capsule Take 1 capsule every day by oral route. 2022 active Not Available Not Available Not Avai lable Robaxin 500 mg tablet Take 1 tablet 3 times a day by oral route. 01/07 completed Not Available Not Available Not Available baclofen 10 mg tablet Take 1 tablet 3 times a day by oral route as needed. 01/07 completed Not Available Not Available Not Available gabapenti n 300 mg capsule Take 1 capsule 4 times a day by oral route. active Not Available Not Available No t Available raloxifen e 60 mg tablet Take 1 tablet every day by oral route. active Not Available Not Available No t Available Naprosyn 500 mg tablet Two times a day 01/06 completed Duration : 30 days;Genaro quency: bid;Medi cation Descript ion: naproxen ; Dosage:1 ; Route:or al; refills: 0 Not Available Not Available Not Available Percocet 5 mg-325 mg tablet Take 1 tablet every 4 hours by oral route as needed. 2022 active Not Available Not Available Not Avai lable Dyrenium 100 mg capsule 01/07 completed Medicati on Descript ion: triamter meir; refills: 0 Not Available Not Available Not Available Cymbalta 30 mg capsule,d elayed release active Medicati on Descript ion: duloxeti ne; refills: 0 Not Available Not Available Not Available aspirin active Medicati on Descript ion: aspirin; refills: 0 Not Available Not Available Not Available omeprazol e active Not Available Not Available Not Available alprazola m 01/07 completed Medicati on Descript ion: alprazol am; refills: 0 Not Available Not Available Not Available Norvasc active Medicati on Descript ion: amlodipi ne; refills: 0 Not Available Not Available Not Available Singulair active Medicati on Descript ion: monteluk ast; refills: 0 Not Available Not Available Not Available Zyrtec active Medicati on Descript ion: cetirizi ne; refills: 0 Not Available Not Available Not Available budesonid e-formote rol HFA 160 mcg-4.5 mcg/actua tion aerosol inhaler Inhale 2 puffs twice a day by inhalati on route. active Not Available Not Available No t Available Bystolic 01/07 completed Medicati on Descript ion: nebivolo l; refills: 0 Not Available Not Available Not Available Stelara 90 mg/mL subcutane ous syringe inject one syringe once every 12 weeks 01/07 completed BCBS: MAMADOU #[id number] valid - 07/23/18 Not Available Not Available Not Available Vimovo 500 mg-20 mg tablet,im mediate and delay release Take 1 tablet twice a day by oral route. 01/07 completed Not Available Not Available Not Available azelastin e 137 mcg-fluti casone 50 mcg/spray nasal spray [place] 1 spray twice a day by intranas al route. active Not Available Not Available No t Available Liptruzet 10 mg-10 mg tablet 01/07 completed Medicati on Descript ion: atorvast atin-dar timibe; refills: 0 Not Available Not Available Not Available Vitals Date Recorded Body height Body mass index (BMI) Body weight Systolic blood pressure Diastolic blood pressure Provider Name and Address Organization Details Last Updated DateTime 04/01/2023 165.1 cm 33.8 kg/m2 64407.25 g 125 mm[Hg] 75 mm[Hg] Kelsi Galvan [facility] 11:46:09 Date Recorded Body height Body mass index (BMI) Body weight Provider Name and Address Organization Details Last Updated DateTime 04/24/2023 165.1 cm 33.8 kg/m2 67780.25 g Elda Monreal [facility] 04/24/2023 12:00:27 Date Recorded Body height Body mass index (BMI) Body weight Provider Name and Address Organization Details Last Updated DateTime 05/27/2024 165.1 cm 30.3 kg/m2 96495.81 g Elda Monreal [facility] 05/27/2024 08:29:52 Date Recorded Body height Body mass index (BMI) Body weight Provider Name and Address Organization Details Last Updated DateTime 07/02/2023 165.1 cm 30.3 kg/m2 36561.81 g Alexandra King [facility] 07/02/2023 11:14:31 Social History Question Answer Notes LastModified by Organizat ion Details LastModified Time Tobacco Smoking Status [facility]/2016 08:57:20 Accident Related Injury No [email or web address] Information not available 09/23/2016 What Is Your Level Of Caffeine Consumption? Moderate [email or web address] Information not available 09/23/2016 How Much Tobacco Do You Chew? None [email or web address] Information not available 09/23/2016 Education 12 Information no t available 08/20/2018 Which Of Your Hands Is Dominant? Right [email or web address] Information not available 09/23/2016 Have You Been Treated For This Problem Before? No [email or web address] Information not available 09/23/2016 Will This Be Filed As Workers' Compensation? No [email or web address] Information not available 09/23/2016 Difficulty Toileting No Information not available 08/20/2018 Ever Taken Anyone Else's Medication For Your Pain? No Information not available 08/20/2018 Ever Used Your Pain Medications Not As Prescribed Or For Reasons Other Than Pain? No Information not available 08/20/2018 Ever Given Your Prescribed Pain Medication To Someone Else? No Information not available 08/20/2018 Last Time You Used Tobacco Never Information not available 08/20/2018 Last Time You Used Marijuana Never Information not available 08/20/2018 Last Time You Used Cocaine Never Information not available 08/20/2018 Last Time You Used Methamphetamine Never Information not available 08/20/2018 Last Time You Used Herion Never Information not available 08/20/2018 Last Time You Used Other Substances Never Information not available 08/20/2018 Marital Status [email or web address] Informati on not available 09/23/2016 What Was The Date Of Your Most Recent Tobacco Screening? 07/02/2023 [email or web address] Information n ot available 07/02/2023 Has Tobacco Cessation Counseling Been Provided? No [email or web address] Information not available 07/02/2023 Work Related Injury? No Information not available 09/23/2016 Sex: Unknown Functional Status Question Answer Note LastModified by Organizat ion Details LastModified Time Do you use any illicit or recreational drugs? No [email or web address] Information not available 09/23/2016 Do you or have you ever used any other forms of tobacco or nicotine? No [email or web address] Information not available 07/02/2023 What is your level of alcohol consumption? None [email or web address] Information not available 09/23/2016 Are you currently employed? 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 No Information not available 08/20/2018 What is your exercise level? Occasional Information not available 08/20/2018 Mental Status None recorded. Family History Relationship Description Onset Age of this Age Resolved Age Notes LastModified by Organization Details LastModified Time Father Alcoholism Not availabl e 08/20/2018 09:25:17 Father Heart disease Not available 2017 09:26:12 Sister Family history of malignant neoplasm Not available 2017 09:25:40 Sister Diabetes mellitus Not available 2017 09:26:01 Sister Hypertensive disorder Not available 2017 09:26:30 Mother Family history of malignant neoplasm grandm other Not available 08/20/2018 09:25:40 Mother Diabetes mellitus Not available 2017 09:26:01 Mother Hypertensive disorder Not available 2017 09:26:30 Brother Diabetes mellitus Not available 2017 09:26:01 Brother Heart disease Not available 2017 09:26:12 Brother Hypertensive disorder Not available 2017 09:26:30 Medical History Condition Response Allergies/Hayfever Y Gout N Anxiety/Depression Y Other N Thyroid Disease N Kidney Stones N Heart Conditions N Emphysema N Hernia N Migraines N Glaucoma N COPD N Pneumonia N Skin Problems N Immune System Disorder N Anesthesia Complications N Heart Attack (AZ) N Mental Illness N Neurological Problems N Diabetes N Rheumatic Fever N Bleeding Disorder N Arthritis Y Seizures/Epilepsy N Blood Clot N Tuberculosis N Genetic Disorder N AIDS/HIV N Acid Reflux (GERD) Y Cancer N Stroke Y Asthma Y Blood Thinners Y Alcohol Overuse/Alcohol Abuse N Sleep Apnea N High Cholesterol Y Liver Disease N Heart Disease N Included as Review of Systems N Rheumatoid Arthritis N Hypertension Y Osteoporosis N Kidney Disease N Gynecological HistoryNo gynecological history recorded. Obstetrics History GPAL:G 0 P 0 0 0 0 Past Encounters Encounter ID Performer Location Encounter Start Date Encounter Closed Date Diagnosis/Indication Diagnosis SNOMED-CT Code Diagnosis ICD10 Code Diagnosis Note [id number] Emily SIERRA PA-C [facility] [address] [place] , [place] [address] 09/23/2016 08:44:37 09/23/2016 09:45:15 History of right total knee replacement 4585163796 060755 Z96.101 [id number] GATO Willams MD [facility] [address] [address] 10/28/2016 09:22:38 10/28/2016 10:16:19 Replacement of total knee joint 394935377 Z96.651 History of total knee arthroplasty 3981802976 105 Z96.262 [id number] GATO Willams MD [facility] [address] [place] [address] 11/25/2016 09:01:33 11/25/2016 09:39:54 Replacement of total knee joint 307811361 Z96.461 [id number] JONATHAN LASSITER APRN [facility] [address] [place] [address] 01/06/2017 14:22:21 01/06/2017 16:24:16 Pain of multiple joints 93372689 M25.50 multiple joitn pains and tenderness without synovitis or dactylitis reports worsening stiffness in the am until after she is able to get out of a warm showercont inues with recurring joint pains and rashes/itc hingwill obtain further labs todayconti nue on vimovo per pcp until labs are returned Pruritic rash [id number] L 28.2 [id number] JONATHAN LASSITER APRN [facility] [address] [place] [address] 02/19/2017 13:57:50 02/23/2017 16:41:12 Anti-nuclear factor detected 054682329 R76.8 without active diseasejoi nt pains without rf and without synovitis or dactylitis ;will follow prn [id number] C MAIA SIERRA PA-C [facility] [address] [place] [address] 07/13/2017 09:05:24 07/13/2017 10:28:17 Pain of hip region 01660978 M25.551 Differenti al diagnosis is possible labral tear, hip DJD not apparent on x-ray, or piriformis syndrome. I have sent her for a intra-julius cular CSI for diagnostic purposes. She wishes to follow-up with Dr. Jenny willams to discuss further treatment after this test [id number] GATO Willams MD [facility] [address] [place] [address] 08/25/2017 09:49:58 08/25/2017 11:15:06 Idiopathic osteoarthritis [id number] M19.91 [id number] C MAIA SIERRA PA-C [facility] [address] [place] [address] 11/03/2017 10:18:03 11/03/2017 11:39:12 History of total replacement of right hip joint [id number] 43130 Z96.641 Ice to SI joint. Continue outpatient PT. Narcotics refilled. Follow-up Dr. Del Angel in 1 month. [id number] GATO Willams MD [facility] [address] [place] [address] 12/04/2017 09:58:34 12/04/2017 13:34:34 Total replacement of hip 66637634 Z96.836 [id number] GATO Willams MD [facility] [address] [place] [address] 01/15/2018 10:21:00 01/18/2018 13:35:02 Total replacement of hip 29377619 Z96.989 [id number] GATO Willams MD [facility] [address] [place] [address] 03/26/2018 08:10:51 03/26/2018 09:10:52 Total replacement of hip 03258710 Z96.641 Greater tr ochanteric pain syndrome 1904392 M70.61 [id number] GATO Willams MD [facility] [address] [place] [address] 06/29/2018 10:02:06 06/29/2018 15:08:57 Total replacement of hip 37287080 Z96.641 Greater tr ochanteric pain syndrome 5798919 M70.61 [id number] GATO Willams MD ORTHOPEDI [address] [address] 07/22/2018 10:01:20 07/22/2018 11:52:48 Total replacement of hip 96654497 Z96.641 Greater tr ochanteric pain syndrome 8937734 M70.61 [id number] JAMIE MONTAÑO JR, MD NEUROS[facility]G [facility] [address] [place] [address] 07/28/2018 10:01:38 08/06/2018 14:24:11 Low back pain 062013749 M54.5 [id number] JAMIE MONTAÑO JR, MD NEUROSURG [facility] [address] [place] [address] 08/13/2018 15:02:05 08/19/2018 11:48:19 Lumbar spondylosis 875685740 M47.058 [id number] KEYSHA LE MD [facility] CLOSED [address] [place] [address] 08/20/2018 08:19:54 08/20/2018 09:18:49 Pain of sacroiliac joint 744597166 M53.3 Osteoarthr itis of knee 782266363 M17.0 Myofascial pain 21415233 9 M79.10 [id number] KEYSHA LE MD [facility] [address], [address] [place] [address] 08/26/2018 14:31:50 09/05/2018 17:29:56 Pain of sacroiliac joint 560306176 M53.3 Greater tr ochanteric pain syndrome 0046986 M70.60 [id number] KEYSHA LE MD [facility] CLOSED [address] [place] [address] 09/24/2018 10:11:21 09/24/2018 11:37:14 Pain of sacroiliac joint 893746483 M53.3 Greater tr ochanteric pain syndrome 0106404 M70.60 Myofascial pain 04250832 9 M79.10 [id number] KEYSHA LE MD [facility] N[facility] [address], [address] [place] [address] 10/06/2018 08:28:35 10/11/2018 10:04:15 Pain of sacroiliac joint 048365141 M53.3 Greater tr ochanteric pain syndrome 1779241 M70.60 [id number] KEYSHA LE MD [facility] CLOSED [address] [place] [address] 11/04/2018 09:23:58 11/04/2018 10:39:51 Depressive disorder 87580112 F32.9 Myofascial pain 37437412 9 M79.10 [id number] KEYSHA LE MD [facility] CLOSED [address] [place] [address] 11/30/2018 07:58:58 11/30/2018 08:18:33 Myofascial pain 836706148 M79.10 [id number] DOREEN CASTREJON PA-C [facility] [address] [place] [address] 01/07/2023 08:07:40 01/07/2023 09:41:13 Osteoarthritis of left hip joint [id number] 70094 M16.12 Assessment : DJD Left Hip Plan:The patient has severe osteoarthr itis of the LEFT hip. The patient has failed conservati ve measures including NSAIDs, activity modificati on, etc. The patient has pain daily, affecting his/her activities of daily living. Patient would like to consider surgical interventi on at this point. We reviewed the risks, benefits, and alternativ es to hip replacemen t surgery. We discussed the risk of infection, neurovascu lar injury, leg length discrepanc y, instabilit y, aseptic loosening, and component wear. We discussed the risk of medical complicati ons, including but not limited to, VTE, pulmonary complicati ons, cardiac complicati ons, and stroke. We will arrange consultati on with Dr. Jenny willams to discuss appropriat e management of patients condition. Tentative surgery date was given today. [facility] surgery [facility]: [facility] -Patient requested overnight stay. Did have hypotensio n after first hip replacemen t.Comorbid ities: Hypertensi on, depression /anxiety, history of TIA 2000 without deficitSur gical Clearances : NoMedicati on/Metal Allergies: Yes -Penicilli ns but tolerates cephalospo rinsAllerg y Testing: NoSmoker: No [id number] GATO Willams MD [facility] [address] [place] [address] 02/10/2023 11:55:20 02/10/2023 13:42:53 Osteoarthritis of left hip joint [id number] 96672 M16.12 ASSESSMENT : DJD LEFT hip PLAN: The patient has end stage osteoarthr itis of the LEFT hip. The patient has failed conservati ve measures including NSAIDs, activity modificati on, etc. The patient has pain daily, affecting his/her activities of daily living. They wish to proceed with total hip arthroplas ty, which I believe to be reasonable . We reviewed the risks, benefits, and alternativ es to hip replacemen t surgery. We discussed the risk of infection, fracture, neurovascu lar injury, leg length discrepanc y, instabilit y, aseptic loosening, and component wear. We discussed the risk of medical complicati ons, including but not limited to, VTE, pulmonary complicati ons, cardiac complicati ons, and stroke. She does understand that the excellent result she has experience d following her right IVAN, is not a guarantee of the same result on the left. All questions were answered to the best of my ability. Surgery date: [facility]-2023[facility] Location: [facility] h: ANTERIORSp ecial implants: InsigniaPr e-op clearance: PASSDVT prophylaxi s: ASA, TEDAdmissi on status: OUTPATIENT Discharge plan: overnight admissionP T: direct to outpatient , [facility] outpatient Allergies: PCNSkin testing: No [id number] GATO Willams MD SURGERY SCHEDULE [address] [place] [address] 03/09/2023 12:39:27 03/13/2023 11:04:55 [id number] Emily SIERRA PA-C [facility] [address] [place] [address] 04/01/2023 11:28:26 04/01/2023 11:56:01 Postoperative care [id number] Z48.89 3-week status post left direct anterior total of arthroplas ty. Patient is doing well. Regarding her buckling left knee and the fact she had a contralate ral knee replacemen t we will get 4 view radiograph s at a future time for her to consider total knee arthroplas ty. If pain improves I would forego the x-ray [id number] C MAIA SIERRA PA-C [facility] [address] [place] [address] 04/24/2023 11:51:12 04/24/2023 12:45:00 Postoperative care 605349729 Z48.89 6-week status post left direct anterior total of arthroplas ty. Doing very well. Continue with formal therapy. Follow-up in 7 weeks for AP pelvis with Gato iwllams M.D. Osteoarthr itis of knee 219298096 M17.9 Symptomati c left knee arthritis with contralate ral knee replacemen t. Patient did well with steroid shots on her right knee preop therefore requested injection of left knee. Patient tolerated injection well. Follow-up as needed for conservati ve management [id number] GATO Willams MD ORTHOPEDI [address] [place] [address] 07/02/2023 10:35:56 07/02/2023 11:33:49 History of total hip arthroplasty 5807229403 06 Z96.642 Doing great. Most patients can expect to see steady improvemen t for up to 1 year following arthroplas ty. Controvers ies surroundin g dental prophylaxi s reviewed. NSAIDs prn for residual pain/swell ing. Routine f/u at 1 years, or prn. [id number] GLORIA LOPEZ PA-C [facility] [address] [place] [address] 05/27/2024 08:02:58 05/27/2024 09:14:55 History of total replacement of left hip joint 1446944250 541271 Z96.642 Assessment : IT band tendonitis , stable B IVAN Radiograph s obtained today reveal intact BTHA implants in good positionin g and alignment. Physical exam reveals good ROM but does have pain with palpation to the IT band. We discussed some formal PT and home exercises to work on to help with her discomfort and stability/ gait.We reviewed the expected progressio n of recovery and rehabilita tion. At this time, the patient is encouraged to continue all activities of daily living as comfortabl e. The patient should continue maintainin g strength bilateral legs with HEP.Patien t will return to clinic in 1 year or sooner if symptoms warrant. Iliotibial band friction syndrome [id number] M76.32 Pt order faxedOk to continue celebrex and tylenol for occasional discomfort Health Concerns Section Related Observation LastModified by Organization Detai ls LastModified Time None Recorded Concern Status LastModified by Organization Details LastModified Time None Recorded Advance Directives Directive None Recorded Payers Insurance Date Sequence Insurance Name Policy Number Policy Leal Covered Member ID Leal Member ID Guarantor Name 05/27/2024 1 [employer] (MEDICARE REPLACEMENT/ ADVANTAGE - PPO) Jojo Kumarjuan [id number] Jojo العلي Joséjuan 05/27/2024 1 [place] [id number] Jojo Flores [id number] Jojo Kumarjuan 05/29/2024 1 [employer] - GOLD PLUS (MEDICARE REPLACEMENT/ ADVANTAGE - HMO) [id number] Jojo Kumarjuan [id number] Jojo Flores Notes Date Note Type Note Provider Name and Address Organization Details Recorded Time 04/01/2023 text/html [id number] i s 3 weeks s/p L direct anterior IVAN.Pain is improving. Is complaining of ipsilateral knee pain. She endorses pain and swelling present prior to herThe patient does not perceive a variation in leg length.Currently taking <3 doses per day of narcotic.Ambulating with canePT: outpatientKORT Denies fevers, chills, or wound drainage.They do not request a refill of pain medicine.Jojo felt a pop yesterday at PT that increased pain immediately but has since subsided. Emily SIERRA PA-C [address] [place], [address], [facility] 04/01/2023 11:56:49 04/24/2023 text/html 04-24-23:Patient is 6 weeks s/p L direct anterior IVAN.Pain is improving. Is complaining of ipsilateral knee pain. She endorses pain and swelling present, x-rays were taken today.The patient does not perceive a variation in leg length.Currently taking <3 doses per day of narcotic.Ambulating with canePT: HEPKORT - discharged with all goals met. Denies fevers, chills, or wound drainage.They do not request a refill of pain medicine. 6-94-99Myrljpb is 3 weeks s/p L direct anterior IVAN.Pain is improving. Is complaining of ipsilateral knee pain. She endorses pain and swelling present prior to herThe patient does not perceive a variation in leg length.Currently taking <3 doses per day of narcotic.Ambulating with canePT: outpatientKORT Denies fevers, chills, or wound drainage.They do not request a refill of pain medicine.Jojo felt a pop yesterday at PT that increased pain immediately but has since subsided. Emily SIERRA PA-C [address] [place], [address], [facility] 04/24/2023 12:47:21 07/02/2023 text/html [id number] is 16.5 weeks s/p L direct anterior IVAN.Pain is improving.The patient does not perceive a variation in leg length.Currently taking <3 doses per day of narcotic.Ambulating with canePT: HEPKORT - discharged with all goals met. Denies fevers, chills, or wound drainage.They do not request a refill of pain medicine.Good relief from left knee CSI in April. 04-24-23:Patient is 6 weeks s/p L direct anterior IVAN.Pain is improving. Is complaining of ipsilateral knee pain. She endorses pain and swelling present, x-rays were taken today.The patient does not perceive a variation in leg length.Currently taking <3 doses per day of narcotic.Ambulating with canePT: HEPKORT - discharged with all goals met. Denies fevers, chills, or wound drainage.They do not request a refill of pain medicine. 7-48-60Ijcgilc is 3 weeks s/p L direct anterior IVAN.Pain is improving. Is complaining of ipsilateral knee pain. She endorses pain and swelling present prior to herThe patient does not perceive a variation in leg length.Currently taking <3 doses per day of narcotic.Ambulating with canePT: outpatientKORT Denies fevers, chills, or wound drainage.They do not request a refill of pain medicine.Jojo felt a pop yesterday at PT that increased pain immediately but has since subsided. GATO SANDHU MD [address] [place] [address], [phone], [facility] 07/02/2023 11:30:08 05/27/2024 text/html 05/27/24Patient i s here today for 1 year post op visit from L IVAN. DOS 03/09/23Patient reports they are doing well.Any pain? yesAmbulating with caneAny issues or concerns yes , In May she was babysitting her granddaughter, with her legs crossed, her granddaughter jumped on her lap, felt pop. She fell three times this year. Pain is to trochanteric aspect with occasional radiation to left thigh.If yes,Denies fevers, chills, or wound drainage. 25-37-23Hdserlz is 16.5 weeks s/p L direct anterior IVAN.Pain is improving.The patient does not perceive a variation in leg length.Currently taking <3 doses per day of narcotic.Ambulating with canePT: HEPKORT - discharged with all goals met. Denies fevers, chills, or wound drainage.They do not request a refill of pain medicine.Good relief from left knee CSI in April. 04-24-23:Patient is 6 weeks s/p L direct anterior IVAN.Pain is improving. Is complaining of ipsilateral knee pain. She endorses pain and swelling present, x-rays were taken today.The patient does not perceive a variation in leg length.Currently taking <3 doses per day of narcotic.Ambulating with canePT: HEPKORT - discharged with all goals met. Denies fevers, chills, or wound drainage.They do not request a refill of pain medicine. 5-81-54Vpqakhk is 3 weeks s/p L direct anterior IVNA.Pain is improving. Is complaining of ipsilateral knee pain. She endorses pain and swelling present prior to herThe patient does not perceive a variation in leg length.Currently taking <3 doses per day of narcotic.Ambulating with canePT: outpatientKORT Denies fevers, chills, or wound drainage.They do not request a refill of pain medicine.Jojo felt a pop yesterday at PT that increased pain immediately but has since subsided. GLORIA LOPEZ PA-C [address] [place] [address], [phone], [facility] 05/27/2024 09:24:32 OBGyn Episode No OBEpisode recorded.
== END 2025-02-18 23:59 | disposition home or self-care (01) ==
LOC: RT 08:04
PROVIDERS: PCP Family Medicine; Visit Provider Family Medicine
DX: I49.1 Atrial premature depolarization (principal); I47.19 Other supraventricular tachycardia; I49.3 Ventricular premature depolarization; R94.31 Abnormal electrocardiogram [ECG] [EKG]
CPT/HCPCS: 93270

== ENCOUNTER 2025-04-12 08:38 | Outpatient (CLI) | payer MEDICARE, OTHER, SELFPAY ==
--- OUTSIDE RECORDS SUMMARY | 2024-07-22 07:30 | XMS_ITS ---
Author Organization [facility] Address [address] [facility] [address] [place] [id number] Care Team Providers Care Dementia Program Director Name Role Phone Stepan Aceves Primary Care [...] Interpretation:satisfactory Performing Lab: Notes/Report: Test performed by [employer] [facility] , [address], [place] [address] Brennan Parry MD, Deputy Sheriff Lieutenant CLIA: [id number] Sodium 144 135-145 mmol/L Potassium 4.6 3.5-5.3 [...] Interpretation:Normal Performing Lab: Notes/Report: Test performed by [employer], [address] , [address], [place] [address] Brennan Parry MD, Deputy Sheriff Lieutenant CLIA: [id number] Cholesterol 175 <200 mg/dL Triglycerides 113 <150 [...] Interpretation:Normal Performing Lab: Notes/Report: Test performed by [facility] [address] [place] [address] , [place] [address] Brennan Parry MD, Deputy Sheriff Lieutenant CLIA: [id number] TSH 1.57 0.43-5.25 mU/L REASON FOR VISIT [...] 07/22/2024 Encounters Encounter Location Date Provider Diagnosis [facility] [address], [place] [phone] 07/22/2024 Stepan Aceves Essential hypertensi on I10 [...] 4 Months, Reason: Provider Name:Stepan Cary er, 08/04/2025 09:30:00 AM, [address], [address], [place], [place], [phone], Progress Notes * Lionel ROJOOB:1960 ([age] yo F)Acc No.[id number]:07/22/2024 Progress Notes Patient: Jojo MILLER Provider: Stepan Aceves M.D. :1960 A ge:63 Y S ex:Female Date:07/22/2024 Address:[address] [place] [address], [place], [id number] Subjective: * Chief Complaints: * 1 . [...] Injection 08/26/2018, 10/06/2018, Heart Cath, [facility] 05/2019. * Hospitalization/Major Diagno stic Procedure: C hest Pain 02/2006, Bronchitis, Hives- [facility] ER 08/31/2010, Chest Pain 01/2013. [...] Codes: 8 5025 CBC WITH AUTO DIFF, 34282 VENIPUNCT, ROUTINE*, 01105 CAPILLARY BLOOD DRAW, 03035 GLYCATED HEMOGLOBIN TEST, Modifiers: QW * Follow Up: 4 Months * Images: Billing Information: * Visit Code: 18759 Office Visit, Est Pt., Level 4. * Procedure Codes: 87155 CBC WITH AUTO DIFF. 95829 VENIPUNCT, ROUTINE*. 28972 CAPILLARY BLOOD DRAW. 58145 GLYCATED HEMOGLOBIN TEST. Modifiers: QW * Electronic signature of Stepan Aceves MD on 04/12/2025 at 08:43 AM EDT Sign off status: Pending * Provider: Stepan Aceves M.D. Date: 09/21/2023 Generated for Printi ng/[place]/eTransmitting on: 0 04/12/2025 08:43 AM EDT History and Physical Notes * [...]
--- OUTSIDE RECORDS SUMMARY | 2024-11-25 05:30 | XMS_ITS ---
Author Organization [facility] Address [address] [facility] [address] [place] [id number] Care Team Providers Care Safety Lamp Keeper Name Role Phone Stepan Aceves Primary Care [...] Interpretation:Normal Performing Lab: Notes/Report: Test performed by [facility] , [address], [place] [address] Brennan Parry MD, Asp Developer CLIA: [id number] Sodium 142 135-145 mmol/L Potassium 4.9 3.5-5.3 [...] Interpretation:Normal Performing Lab: Notes/Report: Test performed by [facility] [address] , [address], [place] [address] Brennan Parry MD, Asp Developer CLIA: [id number] Albumin/Creatinine Ratio, Urine <3.07 0-30 ug/m g Microalbumin, Urine, Random <0.3 Creatinine, Urine 97.7 Holter Monitor- 48 hour Reviewed date:02/14/2025 01:31:21 PM Interpretation: Performing Lab: Notes/Report: Reason For Referral Reason refer to Dr. Geurrero for colonoscopy Diagnosis 1 Screening for colon [...] HCl 60 MG TAKE 1 TABLET BY [facility] EVERY DAY; Duration: 90 days Active Gabapentin [...] Location Date Provider Diagnosis [facility] [address] [facility] [address] [facility] [address] [place] [phone] 11/25/2024 Stepan Aceves Essential hypertensi on I10 [...] HCl 60 MG TAKE 1 TABLET BY [facility] EVERY DAY; Duration: 90 days Gabapentin 600 MG 1 tab(s) orally 3 ti mes a day; Duration: 30 days 11/25/2024 Referrals Referral Date Details 11/25/2024 11/25/2024, refer to Dr. Guerrero for colonoscopy Next Appt Details Follow Up: 4 Months, Reason: Provider Name:Stepan Cary , 08/04/2025 09:30:00 AM, [address] [facility] 36 [facility], [address], [place], [phone], Progress Notes * Cindy ROJO:1960 ([age] yo F)Acc No.[id number]:11/25/2024 Progress Notes Patient: Jojo MILLER Provider: Stepan Aceves M.D. :1960 A ge:64 Y S ex:Female Date:11/25/2024 Address:[address] [place] [address], [place], [id number] Subjective: * Chief Complaints: * 1 . [...] for Raloxifene,Gabapentin, Alprazolam and Sipronolactone sent to [facility] in [place]. 64 year old female presents with c/o [...] 01/19/2013, Normal EMG/NCV of legs, 09/17/2018, Cath [facility] 30% stenosis LAD, 05/19/2019. * Surgical History: D &C , Right knee bone chip removed 1990, TARA/BSO abdominal, H 1994, Heart Cath, near Normal 07/2004, cystoscopy , Colonoscopy 2003, 2013, 2014, RT Shoulder 01/09/2010, Cholecystectomy 2004, RT Knee Arthoscopy 09/05/2015, RT Knee Replacement 09/03/2016, RT Hip Replacement 10/14/2017, Hip Steroid Injection 08/26/2018, 10/06/2018, Heart Cath, [facility] 05/2019. * Hospitalization/Major Diagno stic Procedure: C hest Pain 02/2006, Bronchitis, Hives- [facility] ER 08/31/2010, Chest Pain 01/2013. * [...] G 2211 Complex e/[place], [address] CBC WITH AUTO DIFF, 72881 GLYCATED HEMOGLOBIN TEST, Modifiers: QW , 3044F HG A1C LEVEL LT 7.0%, G8752 MOST RECENT SYSTOLIC BP < 140MM HG, G8754 MOST RECENT DIASTOLIC BP < 90MM HG * Follow Up: 4 Months * Images: Billing Information: * Visit Code: 14588 Office Visit, Est Pt., Level 4. * Procedure Codes: G2211 Complex e/[place]. [address] CBC WITH AUTO DIFF. 76863 GLYCATED HEMOGLOBIN TEST. Modifiers: QW 3044F HG A1C LEVEL LT 7.0%. G8752 MOST RECENT SYSTOLIC BP < 140MM HG. G8754 MOST RECENT DIASTOLIC BP < 90MM HG. * Electronic signature of Stepan Aceves MD on 04/12/2025 at 08:42 AM EDT Sign off status: Pending * Provider: Stepan Aceves M.D. Date: 0 11/25/2024 Generated for Saii ernestina/Argelia/eTransmitting on: 0 04/12/2025 08:42 AM EDT History and Physical Notes * [...]
--- OUTSIDE RECORDS SUMMARY | 2025-03-31 05:45 | XMS_ITS ---
Author Organization [facility] Address [address] [place] [id number] Care Team Providers Care History Faculty Member Name Role Phone Stepan Aceves Primary Care Provider [phone] Allergies Allergen (clinical drug ingredient) Drug/Non Drug [...] Interpretation:satisfactory Performing Lab: Notes/Report: Test performed by [facility], [address] , [address], [place] [address] Brennan Parry MD, Credit Card Specialist CLIA: [id number] Sodium 144 135-145 mmol/L Potassium 4.9 3.5-5.3 [...] 0.6 <0.2-1.2 mg/dL A/G Ratio 2.0 1.1-2.5 REASON FOR VISIT 4 Month Follow Up, [...] MG TAKE 1 TABLET BY 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) Interstitial pulmonary disease, unspecified (J84.9) Active confirmed Problem COPD - Chronic obstructive pulmonary disease (73028102) Chronic obstructive pulmonary disease, unspecified COPD type (J44.9) Active confirmed Problem BMI 30+ - obesity (571674014) BMI 32.0-32.9,adult (Z68.32) Active confirmed Vital Signs Weight 179.8 lbs 03/31/2025 Blood pressure systolic 120 mm Hg 03/31/20 Blood pressure diastolic 70 mm Hg 025 Heart Rate 68 /min 03/31/2025 Height 62.25 in 03/31/2025 BMI 32.62 kg/m2 03/31/2025 Encounters Encounter Location Date Provider Diagnosis [facility] [address], [place] [id number] 03/31/2025 Stepan Aceves Essential hypertensi on I10 [...] mes a day; Duration: 30 days 03/31/2025 Pending Test Test Name Order Date DEXA Hip and Spine 03/31/2025 Mammogram 03/31/2025 Next Appt Details Follow Up: 4 Months, Reason: Provider Name:Stepan Cary er, 08/04/2025 09:30:00 AM, [address] [facility], [address], [place], [place], [id number], Progress Notes * Lionel ROJOOB:1960 ([age] yo F)Acc No.[id number]:03/31/2025 Progress Notes Patient: Jojo MILLER Provider: Stepan Aceves M.D. :1960 A ge:64 Y S ex:Female Date:03/31/2025 Address:[address] [place] [address] [address], [place], [id number] Subjective: * Chief Complaints: * 1 . [...] refill for Alprazolam and Gabapentin sent to [facility] in [place]. Denies : Chest Pain. D enies : [...] 01/19/2013, Normal EMG/NCV of legs, 09/17/2018, Cath [facility] 30% stenosis LAD, 05/19/2019. * Surgical History: D &C , Right knee bone chip removed 1990, TARA/BSO abdominal, [facility] 1994, Heart Cath, near Normal 07/2004, cystoscopy , Colonoscopy 2003, 2013, 2014, RT Shoulder 01/09/2010, Cholecystectomy 2004, RT Knee Arthoscopy 09/05/2015, RT Knee Replacement 09/03/2016, RT Hip Replacement 10/14/2017, Hip Steroid Injection 08/26/2018, 10/06/2018, Heart Cath, [facility] 05/2019, Colonoscopy, Dr. Guerrero, 2 polyps, one was tubular adenoma 02/06/25. * Hospitalization/Major Diagno stic Procedure: C hest Pain 02/2006, Bronchitis, Hives- [facility] ER 08/31/2010, Chest Pain 01/2013. * [...] COPD type - J44.9 1 2. B GA 32.0-32.9,adult - Z68.32 ? 1 3. S [...] 180, Refills 2.? 3.?Osteoporosis?Imaging: DEXA Hip and Spine* Oksana Goyal 03/31/2025 10:1 9:09 AM EDT > faxed to [facility] Scheduling 4.?Type 2 diabetes mellitus without complication, without [...] 2. ?6.?Fibrocystic breast disease (FCBD), unspecified laterality?Imaging: Mammogram* Oksana Goyal 03/31/2025 10:1 8:57 AM EDT > faxed to [facility] Scheduling * Procedure Codes: G 2211 Complex e/[place], [address] GLYCATED HEMOGLOBIN TEST, Modifiers: QW , 1036F TOBACCO NON-USER, 3044F HG A1C LEVEL LT 7.0%, G8950 PREHTN/HTN BP DOC INDCD F/U DOC, G8752 MOST RECENT SYSTOLIC BP < 140MM HG, G8754 MOST RECENT DIASTOLIC BP < 90MM HG * Follow Up: 4 Months * Images: Billing Information: * Visit Code: 74718 Office Visit, Est Pt., Level 4. * Procedure Codes: G2211 Complex e/[place]. [address] GLYCATED HEMOGLOBIN TEST. Modifiers: QW 1036F TOBACCO [...] M.D. Date: 0 03/31/2025 Generated for Arleth do/Argelia/eTransmitting on: 0 04/12/2025 08:43 AM EDT History [...]
--- NOTE | 2025-04-12 08:41 | XR_ITS ---
FINAL REPORT CLINICAL HISTORY: SCREENING COMPARISON: 10/31/2021 FINDINGS: Using L1-4, the bone mineral density of the spine is 1.158 g/cm2, corresponding to T-score of 1.0, within normal limits. Previously was 1.084 with a T-score of 0.3. Using the right forearm, the bone mineral density of 1/3 is 0.687 g/cm2, corresponding to a T-score of -0.1, within normal limits. Previously was 0.496 with a T-score of -3.3. NOTE: T-score: Standard deviation compared with peak bone mass of young adult mean. *Following the recommendations of the International Society of Bone densitometry, classification of hip BMD is based on the lower of two T-scores; total hip or femoral neck. IMPRESSION: Normal bone mineral density of the lumbar spine and hips. Reviewed, Interpreted and Dictated by Titus Segovia MD Transcribed by Jacquie Duran Authenticated and [facility]
--- NOTE | 2025-04-12 08:41 | MM_ITS ---
PROCEDURE INFORMATION: Exam: MG Bilateral Screening 3D Mammography Exam date and time: 04/12/2025 8:57 AM Age: 64 years old Clinical indication: Screening mammogram TECHNIQUE: Imaging protocol: Bilateral Screening tomosynthesis and 2D mammography including computer-aided detection (CAD) when performed. COMPARISON: 1. MG MM DIG SCREENING MAMM BI W/CAD 02/18/2024 10:05 AM 2. MG MM DIG SCREENING MAMM BI W/CAD 10/31/2021 8:00 AM 3. MG SCBI MM Dig screening mamm BI w/CAD 11/19/2017 10:14 AM FINDINGS: MAMMOGRAPHY: Breast composition: There are scattered areas of fibroglandular density. Mass: None. Architectural distortion: No new or suspicious architectural distortion. Calcifications: No new or suspicious calcifications are present Asymmetric density: No new or suspicious asymmetric density is present Skin thickening: None. Axillary adenopathy: None. IMPRESSION: No mammographic evidence of malignancy. Recommend annual screening mammography unless otherwise clinically indicated. ASSESSMENT: BI-RADS category 1: Negative.
--- OUTSIDE RECORDS SUMMARY | 2025-04-12 08:42 | XMS_ITS ---
Author Organization Unknown Medications Date Medication Dosage DosageUnit StartDate StopDate StopReason Active DoseQuantity DoseUnit Dispense DispenseUnit Refills NdcCode DrugCode PharmacyId IsPrescription MappedMedication Srcstatus Custom 11/25 00:00 :00 ALPRAZolam 0.5 MG Tablet 11/25/2024 00:00:00 1 90 Tablet 2 02941 202 910 P Unknown Status 11/25 00:00 :00 ALPRAZolam 0.5 MG Tablet 09/01/2024 00:00:00 1 90 Tablet 2 92344 202 910 P Taking 11/08 00:00 :00 ALPRAZolam 0.5 MG Tablet 11/25/2024 00:00:00 1 90 Tablet 2 97083 202 910 P Unknown Status 09/01 00:00 :00 ALPRAZolam 0.5 MG Tablet 09/01/2024 00:00:00 1 90 Tablet 2 89725 202 910 P Unknown Status 07/22 00:00 :00 ALPRAZolam 0.5 MG Tablet 05/20/2024 00:00:00 1 90 2 0622733 2 910 P Taking 05/20 00:00 :00 ALPRAZolam 0.5 MG Tablet 05/20/2024 00:00:00 1 90 2 [id number] 2 910 P Unknown Status 05/20 00:00 :00 ALPRAZolam 0.5 MG Tablet 04/19/2024 00:00:00 1 90 [id number] 2 910 P Taking 04/19 00:00 :00 ALPRAZolam 0.5 MG Tablet 04/19/2024 00:00:00 1 90 9508788 2 910 P Unknown Status 03/01 00:00 :00 amLODIPine Besylate 5 MG Tablet 1 90 Tablet 0 81915993 710 Start 03/01 00:00 :00 amLODIPine Besylate 5 MG Tablet 0 90 Tablet 1 84938353 710 Stop 11/25 00:00 :00 amLODIPine Besylate 5 MG Tablet 1 90 Tablet 1 40810967 710 Taking 10/05 00:00 :00 amLODIPine Besylate 5 MG Tablet 1 90 Tablet 1 39978956 710 Start 10/05 00:00 :00 amLODIPine Besylate 5 MG Tablet 0 90 Tablet 1 31884946 710 Stop 07/22 00:00 :00 amLODIPine Besylate 5 MG Tablet 1 90 Tablet 1 03110240 710 Taking 05/20 00:00 :00 amLODIPine Besylate 5 MG Tablet 1 90 Tablet 1 35041381 710 Taking 05/10 00:00 :00 amLODIPine Besylate 5 MG Tablet 1 90 Tablet 1 76083302 710 Start 05/10 00:00 :00 amLODIPine Besylate 5 MG Tablet 0 90 Tablet 1 85471700 710 Stop 11/25 00:00 :00 Aspirin Low Dose 81 MG Tablet Delayed Release 04/02/2017 00:00:00 1 100 2 1597405 6 314 P Taking 07/22 00:00 :00 Aspirin Low Dose 81 MG Tablet Delayed Release 04/02/2017 00:00:00 1 100 2 2292995 6 314 P Taking 05/20 00:00 :00 Aspirin Low Dose 81 MG Tablet Delayed Release 04/02/2017 00:00:00 1 100 2 9189395 6 314 P Taking 03/13 00:00 :00 Atorvastati n Calcium 40 MG Tablet 1 90 Tablet 0 08829554 990 Start 03/13 00:00 :00 Atorvastati n Calcium 40 MG Tablet 0 90 Tablet 1 12061372 499 Stop 11/25 00:00 :00 Atorvastati n Calcium 40 MG Tablet 1 90 Tablet 1 24343915 499 Taking 10/17 00:00 :00 Atorvastati n Calcium 40 MG Tablet 1 90 Tablet 1 97377234 499 Start 10/17 00:00 :00 Atorvastati n Calcium 40 MG Tablet 0 90 Tablet 1 30749339 499 Stop 07/22 00:00 :00 Atorvastati n Calcium 40 MG Tablet 1 90 Tablet 1 42092558 499 Taking 05/23 00:00 :00 Atorvastati n Calcium 40 MG Tablet 1 90 Tablet 1 47754170 499 Start 05/23 00:00 :00 Atorvastati n Calcium 40 MG Tablet 0 90 1 000 76541 810 Stop 05/20 00:00 :00 Atorvastati n Calcium 40 MG Tablet 1 90 1 000 18371 810 Taking 05/20 00:00 :00 Blood Glucose Test Strips 333 - Strip 11/19/2023 00:00:00 1 4839364 1 502 P Taking 11/25 00:00 :00 Calcium + Vitamin D3 600-5 MG-MCG Tablet 1 19687716 801 Taking 07/22 00:00 :00 Calcium + Vitamin D3 600-5 MG-MCG Tablet 1 97215570 801 Taking 05/20 00:00 :00 Calcium + Vitamin D3 600-5 MG-MCG Tablet 1 47252447 801 Taking 03/13 00:00 :00 Celecoxib 200 MG Capsule 1 90 Capsule 0 11200330 702 Start 03/13 00:00 :00 Celecoxib 200 MG Capsule 0 90 Capsule 1 52942395 805 Stop 11/25 00:00 :00 Celecoxib 200 MG Capsule 1 90 Capsule 1 51887826 805 Taking 10/17 00:00 :00 Celecoxib 200 MG Capsule 1 90 Capsule 1 76396900 805 Start 10/17 00:00 :00 Celecoxib 200 MG Capsule 0 90 Capsule 1 71774305 805 Stop 07/22 00:00 :00 Celecoxib 200 MG Capsule 1 90 Capsule 1 98151981 805 Taking 05/23 00:00 :00 Celecoxib 200 MG Capsule 1 90 Capsule 1 87783930 805 Start 05/23 00:00 :00 Celecoxib 200 MG Capsule 0 90 1 95348 398 401 Stop 05/20 00:00 :00 Celecoxib 200 MG Capsule 1 90 1 30040 398 401 Taking 02/20 00:00 :00 DULoxetine HCl 60 MG Capsule Delayed Release Particles 1 90 Capsule 0 60429903 810 Start 02/20 00:00 :00 DULoxetine HCl 60 MG Capsule Delayed Release Particles 0 90 Capsule 1 95066088 810 Stop 11/25 00:00 :00 DULoxetine HCl 60 MG Capsule Delayed Release Particles 1 90 Capsule 1 14934381 810 Taking 09/26 00:00 :00 DULoxetine HCl 60 MG Capsule Delayed Release Particles 1 90 Capsule 1 58706778 810 Start 09/26 00:00 :00 DULoxetine HCl 60 MG Capsule Delayed Release Particles 0 90 Capsule 1 39908786 810 Stop 07/22 00:00 :00 DULoxetine HCl 60 MG Capsule Delayed Release Particles 1 90 Capsule 1 64359596 810 Taking 05/20 00:00 :00 DULoxetine HCl 60 MG Capsule Delayed Release Particles 1 90 Capsule 1 60372071 810 Taking 05/02 00:00 :00 DULoxetine HCl 60 MG Capsule Delayed Release Particles 1 90 Capsule 1 49224690 810 Start 05/02 00:00 :00 DULoxetine HCl 60 MG Capsule Delayed Release Particles 0 90 Capsule 1 32854052 810 Stop 11/25 00:00 :00 Fluticasone Propionate 50 MCG/ACT Suspension 1 1 2 9611615 7 099 Taking 07/22 00:00 :00 Fluticasone Propionate 50 MCG/ACT Suspension 1 1 2 6843884 7 099 Taking 05/20 00:00 :00 Fluticasone Propionate 50 MCG/ACT Suspension 1 1 2 5882564 7 099 Taking 11/25 00:00 :00 Gabapentin 600 MG Tablet 11/25/2024 00:00:00 1 180 2 3589034 2 601 P Unknown Status 11/25 00:00 :00 Gabapentin 600 MG Tablet 09/01/2024 00:00:00 1 180 2 2708880 2 601 P Taking 09/01 00:00 :00 Gabapentin 600 MG Tablet 09/01/2024 00:00:00 1 180 2 7894343 2 601 P Unknown Status 07/22 00:00 :00 Gabapentin 600 MG Tablet 01/06/2024 00:00:00 1 180 2 4321988 2 601 P Taking 05/20 00:00 :00 Gabapentin 600 MG Tablet 01/06/2024 00:00:00 1 180 2 8639629 2 601 P Taking 11/25 00:00 :00 Loratadine 10 MG Capsule 1 30 09694 068 607 Taking 07/22 00:00 :00 Loratadine 10 MG Capsule 1 30 09399 068 607 Taking 05/20 00:00 :00 Loratadine 10 MG Capsule 1 30 70256 068 607 Taking 02/20 00:00 :00 Losartan Potassium 50 MG Tablet 1 180 Tablet 0 15410194 111 Start 02/20 00:00 :00 Losartan Potassium 50 MG Tablet 0 180 Tablet 1 71106679 111 Stop 11/25 00:00 :00 Losartan Potassium 50 MG Tablet 1 180 Tablet 1 15010081 111 Taking 09/26 00:00 :00 Losartan Potassium 50 MG Tablet 1 180 Tablet 1 72071170 111 Start 09/26 00:00 :00 Losartan Potassium 50 MG Tablet 0 180 Tablet 1 24464388 111 Stop 07/22 00:00 :00 Losartan Potassium 50 MG Tablet 1 180 Tablet 1 81644330 111 Taking 05/20 00:00 :00 Losartan Potassium 50 MG Tablet 1 180 Tablet 1 52239064 111 Taking 05/02 00:00 :00 Losartan Potassium 50 MG Tablet 1 180 Tablet 1 92691763 111 Start 05/02 00:00 :00 Losartan Potassium 50 MG Tablet 0 180 Tablet 1 17544453 111 Stop 02/20 00:00 :00 Metoprolol Succinate ER 25 MG Tablet Extended Release 24 Hour 1 90 Tablet 0 6444863 6 410 Start 02/20 00:00 :00 Metoprolol Succinate ER 25 MG Tablet Extended Release 24 Hour 0 90 Tablet 1 3586869 6 410 Stop 11/25 00:00 :00 Metoprolol Succinate ER 25 MG Tablet Extended Release 24 Hour 1 90 Tablet 1 6176891 6 410 Taking 09/26 00:00 :00 Metoprolol Succinate ER 25 MG Tablet Extended Release 24 Hour 1 90 Tablet 1 9296891 6 410 Start 09/26 00:00 :00 Metoprolol Succinate ER 25 MG Tablet Extended Release 24 Hour 0 90 Tablet 1 6435380 6 410 Stop 07/22 00:00 :00 Metoprolol Succinate ER 25 MG Tablet Extended Release 24 Hour 1 90 Tablet 1 1295076 6 410 Taking 05/20 00:00 :00 Metoprolol Succinate ER 25 MG Tablet Extended Release 24 Hour 1 90 Tablet 1 9844110 6 410 Taking 05/02 00:00 :00 Metoprolol Succinate ER 25 MG Tablet Extended Release 24 Hour 1 90 Tablet 1 8153396 6 410 Start 05/02 00:00 :00 Metoprolol Succinate ER 25 MG Tablet Extended Release 24 Hour 0 90 Tablet 1 6334622 6 410 Stop 03/13 00:00 :00 Montelukast Sodium 10 MG Tablet 1 90 Tablet 0 29 952723 010 Start 03/13 00:00 :00 Montelukast Sodium 10 MG Tablet 0 90 Tablet 1 29 296504 010 Stop 11/25 00:00 :00 Montelukast Sodium 10 MG Tablet 1 90 Tablet 1 29 124883 010 Taking 10/17 00:00 :00 Montelukast Sodium 10 MG Tablet 1 90 Tablet 1 29 252890 010 Start 10/17 00:00 :00 Montelukast Sodium 10 MG Tablet 0 90 Tablet 1 29 561886 010 Stop 07/22 00:00 :00 Montelukast Sodium 10 MG Tablet 1 90 Tablet 1 29 210822 010 Taking 05/23 00:00 :00 Montelukast Sodium 10 MG Tablet 1 90 Tablet 1 29 745397 010 Start 05/23 00:00 :00 Montelukast Sodium 10 MG Tablet 0 90 Tablet 1 00 901733 806 Stop 05/20 00:00 :00 Montelukast Sodium 10 MG Tablet 1 90 Tablet 1 00 725573 806 Taking 03/13 00:00 :00 Omeprazole 40 MG Capsule Delayed Release 1 90 Capsule 0 64806537 710 Start 03/13 00:00 :00 Omeprazole 40 MG Capsule Delayed Release 0 90 Capsule 1 79802152 710 Stop 11/25 00:00 :00 Omeprazole 40 MG Capsule Delayed Release 1 90 Capsule 1 51837006 710 Taking 10/17 00:00 :00 Omeprazole 40 MG Capsule Delayed Release 1 90 Capsule 1 61207311 710 Start 10/17 00:00 :00 Omeprazole 40 MG Capsule Delayed Release 0 90 Capsule 1 93812023 710 Stop 07/22 00:00 :00 Omeprazole 40 MG Capsule Delayed Release 1 90 Capsule 1 46900524 710 Taking 05/23 00:00 :00 Omeprazole 40 MG Capsule Delayed Release 1 90 Capsule 1 12143609 710 Start 05/23 00:00 :00 Omeprazole 40 MG Capsule Delayed Release 0 90 1 24582661 401 Stop 05/20 00:00 :00 Omeprazole 40 MG Capsule Delayed Release 1 90 1 27127772 401 P Taking 02/13 00:00 :00 Ozempic (0.25 or 0.5 MG/DOSE) 2 MG/3ML Solution Pen-injecto r 1 3 Millilite r 0 80140764 113 Start 02/13 00:00 :00 Ozempic (0.25 or 0.5 MG/DOSE) 2 MG/3ML Solution Pen-injecto r 0 3 Millilite r 0 54457639 113 Stop 01/20 00:00 :00 Ozempic (0.25 or 0.5 MG/DOSE) 2 MG/3ML Solution Pen-injecto r 1 3 Millilite r 0 68058114 113 Start 01/20 00:00 :00 Ozempic (0.25 or 0.5 MG/DOSE) 2 MG/3ML Solution Pen-injecto r 0 3 Millilite r 5 92182849 113 Stop 11/25 00:00 :00 Ozempic (0.25 or 0.5 MG/DOSE) 2 MG/3ML Solution Pen-injecto r 1 3 Millilite r 5 13212836 113 P Taking 07/22 00:00 :00 Ozempic (0.25 or 0.5 MG/DOSE) 2 MG/3ML Solution Pen-injecto r 1 3 Millilite r 5 33075933 113 P Taking 05/20 00:00 :00 Ozempic (0.25 or 0.5 MG/DOSE) 2 MG/3ML Solution Pen-injecto r 1 3 Millilite r 5 58958829 113 P Taking 11/25 00:00 :00 ProAir Digihaler 108 (90 Base) MCG/ACT Aerosol Powder Breath Activated 10/01/2020 00:00:00 1 1 3 9823989 8 020 P Taking 07/22 00:00 :00 ProAir Digihaler 108 (90 Base) MCG/ACT Aerosol Powder Breath Activated 10/01/2020 00:00:00 1 1 3 0992855 8 020 P Taking 05/20 00:00 :00 ProAir Digihaler 108 (90 Base) MCG/ACT Aerosol Powder Breath Activated 10/01/2020 00:00:00 1 1 3 2923772 8 020 P Taking 11/25 00:00 :00 Raloxifene HCl 60 MG Tablet 1 90 Tablet 3 658 62955 901 P Unknown Status 11/25 00:00 :00 Raloxifene HCl 60 MG Tablet 1 90 Tablet 0 658 69661 901 Taking 11/25 00:00 :00 Raloxifene HCl 60 MG Tablet 1 90 Tablet 0 658 27447 901 Start 11/25 00:00 :00 Raloxifene HCl 60 MG Tablet 0 90 Tablet 1 658 40872 901 Stop 07/22 00:00 :00 Raloxifene HCl 60 MG Tablet 1 90 Tablet 1 658 37047 901 Taking 06/01 00:00 :00 Raloxifene HCl 60 MG Tablet 1 90 Tablet 1 658 79768 901 Start 06/01 00:00 :00 Raloxifene HCl 60 MG Tablet 0 90 Tablet 1 658 99901 901 Stop 05/20 00:00 :00 Raloxifene HCl 60 MG Tablet 1 90 Tablet 1 658 63633 901 Taking 05/20 00:00 :00 Silvadene 1 % Cream 05/07/2023 00:00:00 1 50 Gram 0 5374293 3 120 P Taking 11/25 00:00 :00 Spironolact one 25 MG Tablet 1 90 Tablet 4 003 40407 601 P Unknown Status 11/25 00:00 :00 Spironolact one 25 MG Tablet 1 90 Tablet 1 003 18570 601 P Taking 07/22 00:00 :00 Spironolact one 25 MG Tablet 1 90 Tablet 1 003 58481 601 P Taking 05/20 00:00 :00 Spironolact one 25 MG Tablet 1 90 Tablet 1 003 87215 601 P Unknown Status 05/20 00:00 :00 Spironolact one 25 MG Tablet 1 90 Tablet 1 003 02388 601 P Taking 11/25 00:00 :00 Symbicort 80-4.5 MCG/ACT Aerosol 1 1 3 99369580 220 P Taking 07/22 00:00 :00 Symbicort 80-4.5 MCG/ACT Aerosol 1 1 3 26356147 220 P Taking 05/20 00:00 :00 Symbicort 80-4.5 MCG/ACT Aerosol 1 1 3 34026301 220 P Taking 11/25 00:00 :00 Vitamin B-12 1000 MCG Tablet 1 90 Tablet 1 59100325 022 P Taking 08/18 00:00 :00 Vitamin B-12 1000 MCG Tablet 1 90 Tablet 1 70387557 022 P Unknown Status 08/18 00:00 :00 Vitamin B-12 1000 MCG Tablet 1 90 Tablet 1 00736192 022 Start 08/18 00:00 :00 Vitamin B-12 1000 MCG Tablet 0 90 Tablet 1 50705397 022 Stop 07/22 00:00 :00 Vitamin B-12 1000 MCG Tablet 1 90 Tablet 1 65661052 022 Taking 05/20 00:00 :00 Vitamin B-12 1000 MCG Tablet 1 90 Tablet 1 05647336 022 Taking
--- OUTSIDE RECORDS SUMMARY | 2025-04-12 08:43 | XMS_ITS | Clinical Summary ---
Author Organization [facility] ([place], [place], [place], [place]) Address [address] [place] [address] Care Team Providers Care Pipeline Maintenance Supervisor Name Role Phone Tahir Aceves MD Primary Care Provider [phone] Allergies Active Allergy Reactions Criticality Noted Date [...] drink = 0.6 oz pur e alcohol) Food Insecurity Answer Date Recorded Food run [...] Date Darryn rded Speak language other than Marshallese at home Not on file 09/25/2023 Want help with school or training Not on file 09/25/2023 Substance Use Answer Date Recorded Used [...] Shingles Vaccine (Zoster) (1 of 2) 2009 Respiratory Syncytial Virus (RSV) Adult or (1 - Risk 60-74 years 1-dose series) 2019 Medicare Initial AWV G0438 12/08/2023 Tobacco Cessation Counseling and Screening (12+) 03/0903/09/2023 COVID-19 VACCINE ( season) 2024 Falls Risk Screening 09/07/2024 Influenza Vaccine (#1) 2025 Medical Devices Implanted Type Area Best Second Jobs Device Identifier Shelf Expiration Date Model / Serial / Lot Scr Low Profile 6.5x20mm 0711-1692 - [id number] Implanted:Qt y: 1 on 03/09/2023 by Nicole Ordaz MD at [facility] IMPLANTS Left: Hip J[employer]Y:[employer] [id number] 09/30/2027 6390-6810 / / UDUA Scr Low Profile 6.5x25mm 0298-3504 - [id number] Implanted:Qt y: 1 on 03/09/2023 by Nicole Ordaz MD at [facility] IMPLANTS Left: Hip [employer] [id number] 12/22/2027 1960-0929 / / [id number] Shell Trident Ii Tri Clusterhl 702-04-50d - [id number] Implanted:Qt y: 1 on 03/09/2023 by Nicoel Ordaz MD at [facility] TOTAL JOINT CONSTRUCT Left: Hip [employer] [id number] 09/14/2027 702-04-50 D / / [id number] Insrt Trident Poly X3 36mm D 723-00-36d - [id number] Implanted:Qt y: 1 on 03/09/2023 by Nicole Ordaz MD at [facility] TOTAL [employer] Left: Hip [employer] [id number] 02/09/2028 723-00-36 D / / [id number] Stem Hip Insig Hi Off Sz2 3839-7120 - [id number] Implanted:Qt y: 1 on 03/09/2023 by Nicole Ordaz MD at [facility] TOTAL [employer] Left: Hip [employer] [id number] 11/19/2027 6788-4762 / / [id number] Head Fem Ceramic V40 36mm 6570-0-136 - [id number] Implanted:Qt y: 1 on 03/09/2023 by Nicole Ordaz MD at [facility] TOTAL JO[employer]STRU[employer] Left: Hip [employer] [id number] 01/08/2028 6570-0-13 / / [id number] [place] [address] MEDICARE O GENERIC COMMERCIAL Advance Directives For more information, please contact: [phone] * Full Code (Latest Code Status on File) Date Activated Date Inactivated Comments 03/09/2023 11:33 AM 03/10/2023 12:59 PM * Full Code Date Activated Date Inactivated Comments 03/09/2023 5:46 AM 03/09/2023 11:33 AM Care Teams Pipeline Maintenance Supervisor Relationship Specialty Start Date End Date Tahir Aceves MD [address] [place] [address] PCP - General Family Medicine 02/19/23
--- OUTSIDE RECORDS SUMMARY | 2025-04-12 08:43 | XMS_ITS | Referral Summary ---
Author Organization [facility] ([place], [place], [place], [place]) Address [address] [place] [address] Care Team Providers Care Feather Washer Name Role Phone Tahir Aceves MD Primary Care Provider [phone] Allergies Active Allergy Reactions Criticality Noted Date [...] Date Darryn rded Speak language other than Turkmen at home Not on file 09/25/2023 Want [...] on file Medical Devices Implanted Type Area Shrink Pit Supervisor Device Identifier Shelf Expiration Date Model / Serial / Lot Scr Low Profile 6.5x20mm 0214-0526 - [id number] Implanted:Qt y: 1 on 03/09/2023 by Nicole Ordaz MD at [facility] IMPLANTS Left: Hip [employer] [id number] 09/30/2027 3376-6318 / / UDUA Scr Low Profile 6.5x25mm 3467-3349 - [id number] Implanted:Qt y: 1 on 03/09/2023 by Nicole Ordaz MD at [facility] IMPLANTS Left: Hip [employer] [id number] 12/22/2027 7545-4641 / / U3J Shell Trident Ii Tri Clusterhl 702-04-50d - [id number] Implanted:Qt y: 1 on 03/09/2023 by Nicole Ordaz MD at [facility] TOTAL JO[employer]STRU[employer] Left: Hip [employer] [id number] 09/14/2027 702-04-50 D / / [id number] Insrt Trident Poly X3 36mm D 72-36d - [id number] Implanted:Qt y: 1 on 03/09/2023 by Nicole Ordaz MD at [facility] TOTAL [employer]STRU[employer] Left: Hip [employer] [id number] 02/09/2028 723-00-36 D / / [id number] Stem Hip Insig Hi Off Sz2 6765-8105 - [id number] Implanted:Qt y: 1 on 03/09/2023 by Nicole Ordaz MD at [facility] T[employer] Left: Hip [employer] [id number] 11/19/2027 0340-8679 / / [id number] Head Fem Ceramic V40 36mm 6570-0-136 - [id number] Implanted:Qt y: 1 on 03/09/2023 by Nicole Ordaz MD at [facility] TOTAL [employer] Left: Hip [employer] [id number] 01/08/2028 6570-0-13 / / [id number] [facility] [place] [address] [facility] MEDICARE PPO GENERIC COMMERCIAL Advance Directives For more information, please contact: [phone] * Full Code (Latest Code Status on File) Date Activated Date Inactivated Comments 03/09/2023 11:33 AM 03/10/2023 12:59 PM * Full Code Date Activated Date Inactivated Comments 03/09/2023 5:46 AM 03/09/2023 11:33 AM Care Teams Feather Washer Relationship Specialty Start Date End Date Tahir Aceves MD [address] [place] [address] PCP - General Family Medicine 02/19/23
--- OUTSIDE RECORDS SUMMARY | 2025-04-12 08:43 | XMS_ITS | Patient Health Record ---
[facility] [address] [place] [id number] Care Team Providers Care Copy Center Specialist Name Role Phone Stepan Aceves Primary Care Provider Jeremías Miller Unavailable [phone] Brendan Gipson Unavailable [phone] Allergies Allergen (clinical drug ingredient) Drug/Non Drug [...] Interpretation:Normal Performing Lab: Notes/Report: Test performed by [facility] [address] [place] [address] , [address], [place] [address] Brennan Parry MD, [facility] CLIA: [id number] Sodium 142 135-145 mmol/L Potassium 4.9 3.5-5.3 [...] Interpretation:Normal Performing Lab: Notes/Report: Test performed by [facility] [address] [place] [address] , [address], [place] [address] Brennan Parry MD, [facility] CLIA: [id number] Albumin/Creatinine Ratio, Urine <3.07 0-30 ug/m g Microalbumin, Urine, Random <0.3 Creatinine, Urine 97.7 Holter Monitor- 48 hour Reviewed date:02/14/2025 01:31:21 PM Interpretation: Performing Lab: Notes/Report: Glycohemoglobin A1c (in hous e) Reviewed date:03/31/2025 12:17:12 PM Interpretation: Performing Lab: Notes/Report: glycohemoglobin 6.0% 5 - 6.5 % P-Comprehensive Metabolic Pa alla (CMP) Reviewed date:04/07/2025 12:23:09 PM Interpretation:satisfactory Performing Lab: Notes/Report: Test performed by [facility] [address] [place] [address] , [address], [place] [address] Brennan Parry MD, [facility] CLIA: [id number] Sodium 144 135-145 mmol/L Potassium 4.9 3.5-5.3 [...] 0.6 <0.2-1.2 mg/dL A/G Ratio 2.0 1.1-2.5 P-TSH Reviewed date:07/25/2024 01:50:07 PM Interpretation:Normal Performing Lab: Notes/Report: Test performed by [facility] [address] [place] [address] , [address], [place] [address] Brennan Parry MD, [facility] CLIA: [id number] TSH 1.57 0.43-5.25 mU/L P-Lipid Panel Reviewed date:07/25/2024 01:50:07 PM Interpretation:Normal Performing Lab: Notes/Report: Test performed by [facility] [address] [place] [address] , [address], [place] [address] Brennan Parry MD, [facility] CLIA: [id number] Cholesterol 175 <200 mg/dL Triglycerides 113 <150 [...] Results: 97 Units: mg/dL % Change: - P-Comprehensive Metabolic Pa alla (CMP) Reviewed date:07/25/2024 01:50:07 PM Interpretation:satisfactory Performing Lab: Notes/Report: Test performed by [facility] [address] [facility] , [address], [place] [address] Brennan Parry MD, [facility] CLIA: [id number] Sodium 144 135-145 mmol/L Potassium 4.6 3.5-5.3 [...] 0.4 <0.2-1.2 mg/dL A/G Ratio 2.1 1.1-2.5 Glycohemoglobin A1c (in hous e) Reviewed date:07/22/2024 12:49:33 PM Interpretation: Performing Lab: Notes/Report: glycohemoglobin 6.1% 5 - 6.5 % CBC Venipuncture (in house) Reviewed date:07/22/2024 12:49:21 [...] - 38 platlet 320 100 - 400 Holter - 7 day Reviewed date:04/07/2025 11:02:03 AM Interpretation:see 03/31/25 OV Performing Lab: Notes/Report: see 03/31/25 OV Medications Medication SIG (Take, Route, Frequency, Duration) Notes Start Date End Date Status Aspirin Low Dose 81 MG 1 tab(s) orally o nce a day 04/02/2017 Active Montelukast Sodium 10 MG TAKE 1 TABLET E VERY DAY; Duration: 90 Active Vitamin B-12 1000 MCG 1 tablet Orally On ce a day; Duration: 90 days Active Celecoxib 200 MG TAKE 1 CAPSULE EVERY DAY; Duration: 90 Active ProAir Digihaler 108 (90 Base) MCG/ACT 2 puff(s) inhaled three times a day as needed 10/01/2020 Active amLODIPine Besylate 5 MG 1 tablet Orally Once a day; Duration: 90 days Active Fluticasone Propionate 50 MCG/ACT as directed in each nostril once a day; Duration: 30 day(s) Active Omeprazole 40 MG TAKE 1 CAPSULE EVERY DAY; Duration: 90 Active Raloxifene HCl 60 MG TAKE 1 TABLET BY [facility] EVERY DAY; Duration: 90 days Active ALPRAZolam 0.5 MG 1 tab orally 3 times a day; Duration: 30 day(s) 03/31/2025 Active Ozempic (0.25 or 0.5 MG/DOSE) 2 MG/3ML ADMINISTER 0.5 MG UNDER THE SKIN 1 TIME WEEKLY; Duration: 28 Active Gabapentin 600 MG 1 tab(s) orally 3 ti mes a day; Duration: 30 days 03/31/2025 Active Spironolactone 25 MG 1 tab(s) orally onc e a day; Duration: 90 days Active Atorvastatin Calcium 40 MG TAKE 1 TABLET AT BEDTIME; Duration: 90 Active Calcium + Vitamin D3 600-5 MG-MCG 1 tab(s) orally 2 times a day Active Metoprolol Succinate ER 25 MG TAKE 1 TABLET EVERY DAY; Duration: 90 days Active Symbicort 80-4.5 MCG/ACT 2 puff(s) inhal ed 2 times a day Active DULoxetine HCl 60 MG TAKE 1 CAPSULE ONE TIME DAILY; Duration: 90 days Active Loratadine 10 MG 1 capsule Orally Onc e a day; Duration: 30 day(s) Active Losartan Potassium 50 MG TAKE 1 TABLET T WICE DAILY; Duration: 90 days Active Immunizations Vaccine Route Administration Date Status Comme nts COVID 19 Kavita Unknown 11/15/2020 Administered COVID 19 Moderna Unknown 07/24/2021 Administered Flublok Unknown 06/12/2021 Administered Fluzone PF Quad (6-35 months) Unknown 05/24/2020 Administered Fluzone Quad (6months&older) IM Intramuscular 06/28/2018 Administered Fluzone Quad (6months&older) IM Intramuscular 06/27/2019 Administered PNEUMOVAX 23 VACCINE IM Intramuscular 11/09/2017 Administe red Tetanus Tdap-Adacel (over 7yrs) IM Intramuscular 11/09/2017 Administered Problems Problem Type SNOMED Code ICD Code Onset Dates Problem Status W/U Status Risk Notes Problem Essential hypertension (03906347) Essential hypertension (I10) Active confirmed Problem Anxiety (72626465) Anxiety (F41.9) Active confi rmed Problem Sciatic nerve lesion (635882665) Piriformis syndrome of left side (G57.02) Active confirmed Problem Mixed anxiety and depressive disorder (225811952) Depression with anxiety (F41.8) Active confirmed Problem BMI 30+ - obesity (094371257) BMI 32.0-32.9,adult (Z68.32) Active confirmed Problem Rheumatoid factor positive (043973529) Rheumatoid factor positive (R76.8) Active confirmed Problem Sciatica (25292855) Lumbago with sciatica, right side (M54.41) Active confirmed Problem Mixed hyperlipidemia (688826400) Mixed hyperlipidemia (E78.2) Active confirmed Problem Chronic pain (35670422) Other chronic pain (G89.29) Active confirmed Problem 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) Interstitial pulmonary disease, unspecified (J84.9) Active confirmed Problem Onychomycosis (241131983) Onychomycosis (B35.1) Active confirmed Problem Gastroesophageal reflux disease (294203087) GERD without esophagitis (K21.9) Active confirmed Problem Chronic pain (29441591) Other chronic pain (G89.29) Active confirmed Problem Myositis (15386472) Myofasciitis (M60.9) Active confirmed Problem Cervical disc disease (699515068) Cervical disc disease (M50.90) Active confirmed Problem COPD - Chronic obstructive pulmonary disease (81753217) Chronic obstructive pulmonary disease, unspecified COPD type (J44.9) Active confirmed Problem Obese class II (623628340016547) BMI 36.0-36.9,adult (Z68.36) Active confirmed Problem Osteoporosis (27451435) Osteoporosis (M81.0) Active confirmed Problem Screening for colon cancer (619608672) Screening for colon cancer (Z12.11) Active confirmed Problem History of right hip replacement (3759817061666514) History of right hip replacement (Z96.641) Active confirmed Problem Allergic rhinitis caused by pollen (74150895) Seasonal allergic rhinitis due to pollen (J30.1) Active confirmed Problem Type II diabetes mellitus without complication (327132958) Type 2 diabetes mellitus without complication, without long-term current use of insulin (E11.9) Active confirmed Problem Artificial knee joint present (263923011418) H/o total knee replacement, right (Z96.651) Active confirmed Problem Osteopenia (734860999) Osteopenia, unspecified location (M85.80) Active confirmed Problem Fibrocystic breast changes (66117949) Fibrocystic breast disease (FCBD), unspecified laterality (N60.19) Active confirmed Problem Uncomplicated moderate persistent asthma (567853333) Moderate persistent asthmatic bronchitis without complication (J45.40) Active confirmed Problem Arthritis of left hip (7700187761090831) Arthritis of left hip (M16.12) Active confirmed Problem History of total replacement of left hip joint (0498823851305016) Status post total hip replacement, left (Z96.642) Active confirmed Problem Ankle ulcer (077459751) Skin ulcer of right ankle, limited to breakdown of skin (L97.311) Active confirmed Vital Signs Heart Rate 68 /min 03/31/2025 Blood pressure diastolic 70 mm Hg 03/31/2025 Height 62.25 in 03/31/2025 Blood pressure systolic 120 mm Hg 03/31/2025 Weight 179.8 lbs 03/31/2025 BMI 32.62 kg/m2 03/31/2025 Encounters Encounter Location Date Provider [facility] [address] [place] [address] [place] [id number] 05/20/2024 Stepan Aceves Anxiety F41.9 ; Essential hypertension I10 and History of right hip replacement Z96.641 [facility] [address] [place] [id number] 07/22/2024 Stepan Aceves Essential hypertensi on I10 ; History of right hip replacement Z96.641 ; Status post total hip replacement, left Z96.642 ; Type 2 diabetes mellitus without complication, without long-term current use of insulin E11.9 ; Other chronic pain G89.29 ; Osteopenia, unspecified location M85.80 ; Moderate persistent asthmatic bronchitis without complication J45.40 ; Other hyperlipidemia E78.4 and Mixed hyperlipidemia E78.2 [facility] [address] [id number] 11/25/2024 Stepan Aceves Essential hypertensi on I10 ; Depression with anxiety F41.8 ; Mixed hyperlipidemia E78.2 ; History of right hip replacement Z96.641 ; Palpitations R00.2 ; Other chronic pain G89.29 ; Screen for colon cancer Z12.11 and Type 2 diabetes mellitus without complication, without long-term current use of insulin E11.9 [facility] [address] [place] [id number] 03/31/2025 Stepan Aceves Essential hypertensi on I10 [...] Fibrocystic breast disease (FCBD), unspecified laterality N60.19 [facility] [address] [place], [place] [id number] 04/19/2024 Jeremías Miller Depression with anxi ety F41.8 [facility] [address] [place], [place] [id number] 08/18/2024 Stepan Aceves [facility] [address] [place], [place] [id number] 09/01/2024 Stepan Aceves Other chronic pain G89.29 and Anxiety F41.9 [facility] [address] [facility] [address] [place], [place] [id number] 11/08/2024 Brendan Gipson Depression with anxi ety F41.8 [facility] [address] [place], [place] [id number] 02/14/2025 Stepan Aceves Assessments Encounter Date Diagnosis (ICD Code) Assessment Notes Treatment Notes Treatment Clinical Notes Section Notes 04/19/2024 Depression with anxiety (ICD-10 - F41.8) 05/20/2024 Essential hypertension (ICD-10 - I10) 05/20/2024 Anxiety (ICD-10 - F41.9) 07/22/2024 Essential hypertension (ICD-10 - I10) 07/22/2024 History of right hip replacement (ICD-10 - Z96.641) 09/01/2024 Other chronic pain (ICD-10 - G89.29) 11/08/2024 Depression with anxiety (ICD-10 - F41.8) 11/25/2024 Essential hypertension (ICD-10 - I10) 11/25/2024 Depression with anxiety (ICD-10 - F41.8) 03/31/2025 Essential hypertension (ICD-10 - I10) 03/31/2025 Rheumatoid factor positive (ICD-10 - R76.8) 11/25/2024 Mixed hyperlipidemia (ICD-10 - E78.2) 07/22/2024 Status post total hip replacement, left (ICD-10 - Z96.642) 09/01/2024 Anxiety (ICD-10 - F41.9) 05/20/2024 History of right hip replacement (ICD-10 - Z96.641) 03/31/2025 H/o total knee replacement, right (ICD-10 - Z96.651) 07/22/2024 Type 2 diabetes mellitus without complication, without long-term current use of insulin (ICD-10 - E11.9) 11/25/2024 History of right hip replacement (ICD-10 - Z96.641) 03/31/2025 Other chronic pain (ICD-10 - G89.29) 11/25/2024 Palpitations (ICD-10 - R00.2) 03/31/2025 Osteoporosis (ICD-10 - M81.0) 07/22/2024 Other chronic pain (ICD-10 - G89.29) 03/31/2025 Type 2 diabetes mellitus without complication, without long-term current use of insulin (ICD-10 - E11.9) 07/22/2024 Osteopenia, unspecified location (ICD-10 - M85.80) 11/25/2024 Other chronic pain (ICD-10 - G89.29) 11/25/2024 Screen for colon cancer (ICD-10 - Z12.11) 03/31/2025 Anxiety (ICD-10 - F41.9) 07/22/2024 Moderate persistent asthmatic bronchitis without complication (ICD-10 - J45.40) 07/22/2024 Other hyperlipidemia (ICD-10 - E78.4) 03/31/2025 Depression with anxiety (ICD-10 - F41.8) 11/25/2024 Type 2 diabetes mellitus without complication, without long-term current use of insulin (ICD-10 - E11.9) 03/31/2025 Interstitial pulmonary disease, unspecified (ICD-10 - J84.9) 07/22/2024 Mixed hyperlipidemia (ICD-10 - E78.2) 03/31/2025 Ventricular tachycardia, unspecified (ICD-10 - I47.20) 03/31/2025 Chronic obstructive pulmonary disease, unspecified COPD type (ICD-10 - J44.9) 03/31/2025 BMI 32.0-32.9,adult (ICD-10 - Z68.32) 03/31/2025 Screening for colon cancer (ICD-10 - Z12.11) 03/31/2025 Fibrocystic breast disease (FCBD), unspecified laterality (ICD-10 - N60.19) Plan Of Treatment Pending Test Test Name Order Date DEXA Hip and Spine 03/31/2025 Mammogram 03/31/2025 LC-Sedimentation Rate-[facility] 022 Next Appt Details Provider Name:Stepan Valenciadoug er, 08/04/2025 09:30:00 AM, [address], [address], [place], [place], [id number], Insurance Providers Payer Name Payer Address Payer Phone Subscriber Number Group Number Insured Name Patient Relationship to Insured Coverage Start Date Coverage End Date [employer] (MEDICARE) [address] [address] [place] [address] [phone] [id number] oJjo Flores Self - patient is the insured [employer] [address] [place] [address] [id number] Jojo Flores Self - patient is the insured Medications [...] 01/19/2013 Normal EMG/NCV of legs, 09/17/2018 Cath [facility] 30% stenosis LAD, 05/19/2019 Surgical History Surgery Date(Month/Year) D&C Right knee bone chip removed 1990 TARA/BSO abdominal, [facility] 1994 Heart Cath, near Normal 07/2004 cystoscopy Colonoscopy 2003, 2013, 2014 RT Shoulder 01/09/2010 Cholecystectomy 2004 RT Knee Arthoscopy 09/05/2015 RT Knee Replacement 09/03/2016 RT Hip Replacement 10/14/2017 Hip Steroid Injection 08/26/2018, 019 Heart Cath, [facility] 05/2019 Colonoscopy, Dr. Guerrero, 2 polyps, one was tubular adenoma 02/06/25 Hospitalization History Reason Date(Month/Year) Chest Pain 01/2013 Bronchitis, Hives- [facility] ER 08/31/2010 Chest Pain 02/2006
== END 2025-04-12 23:59 | disposition home or self-care (01) ==
LOC: RAD 08:39
PROVIDERS: PCP Family Medicine; Visit Provider Family Medicine
DX: M81.0 Age-related osteoporosis without current pathological fracture (principal); R92.323 Mammographic fibroglandular density, bilateral breasts
CPT/HCPCS: 77063; 77067; 77080

== ENCOUNTER 2025-06-14 10:24 | Outpatient (CLI) | payer MEDICARE, OTHER, SELFPAY ==
[2025-06-14 11:04] LABS: Hematocrit 38.0 % (37.0-47.0); Hemoglobin 12.5 g/dL (12.2-16.2); Immature Granulocytes % 0.2 %; Mean Corpuscular HGB Conc 32.9 g/dL (31.8-35.4); Mean Corpuscular Hemoglobin 29.3 pg (27.0-31.2); Mean Corpuscular Volume 89.2 fl (81-99); Nucleated Red Blood Cells % 0 %; Platelet Count 256 K/mm3 (142-424); Red Blood Count 4.26 M/mm3 (4.20-5.40); Red Cell Distribution Width-SD 39.7 fL; White Blood Count 6.2 K/mm3 (4.8-10.8)
== END 2025-06-14 23:59 | disposition home or self-care (01) ==
LOC: LAB 10:27
PROVIDERS: PCP Family Medicine; Visit Provider Internal Medicine Pulmonary Disease
DX: J45.909 Unspecified asthma, uncomplicated (principal)
CPT/HCPCS: 36415; 85025

== ENCOUNTER 2025-07-13 09:20 | Outpatient (CLI) | payer MEDICARE, OTHER, SELFPAY ==
--- OUTSIDE RECORDS SUMMARY | 2025-07-13 09:33 | XMS_ITS | Data Portability ---
Author Organization RINA KAY [facility] Address [address] [facility] [address] [place] [address] Care Team Providers Care Footwear Sales Coordinator Name Role Phone Stepan GOMEZ Primary Care Provider [phone] GATO SANDHU Orthopedic Surgeon [phone] Assessment No assessment recorded. Plan of Treatment Reminders Order Date Submit Date Provider Last Modified By Organization Details Last Modified Time Details Appointments None recorded. Lab None recorded. Referral physical therapist referral 2023 024 [facility], [address], [place], [address], 12:15:16 Procedures None recorded. Surgeries None recorded. Imaging None recorded. Medication Orders None recorded. Patient TargetsNo targets recorded. Patient InstructionsNo instructions recorded. Reason for Referral Physical Therapist Referral for Iliotibial band friction syndrome Referring Physician: Gloria Lopez, Orthopedic Surgery, Encounter Date: 05/27/2024 Results Created Date Observation Date Name Description Value Unit Range Abnormal Flag Note LastModifiedBy Organization Detail LastModifiedTime 02/20/2002/19/2023 elect rocar diogr am No observ ation record ed. [email or web address] [facility] [address], [place], [address], 02/19/2023 15:04:55 04/01/20 23 04/01/2023 XR, hip, unila teral , 2 or 3 view [place] [facility] [place] [address] [place] [address] Mary t Name: JOJO zaragoza : 958 Mary zaragoza Mounika ng Provid er: GATO SALVADOR EXAM DATE: [...] fernandez MD on 023 11:42 AM david [facility] [place] [address], [place], [address], 04/04/2023 07:10:15 04/24/20 23 04/24/2023 XR, pelvi s, 1 or 2 view [facility] [place] [address] [place] [address] Mary t Name: JOJO zaragoza : 958 Mary zaragoza Mounika ng Provid er: Mireille BROWN SON EXAM [...] By: Doreen Haskins MD on 023 12:[address] Rad[facility] [place] [address] , [place], [address], 05/07/2023 09:36:02 04/24/20 23 04/24/2023 XR, knee, 4 or more view [facility] [address] [address] Patien t Name: JOJO zaragoza : [address]59 Patijax [...] By: Doreen Haskins MD on 12:[address] Radiology [facility] [address] , [place], [address], 05/07/2023 09:36:03 07/02/20 23 07/02/2023 XR, pelvi s, 1 or 2 view [facility] [address] [place] [address] Patijax t Name: JOJO zaragoza : 959 [...] Beth fernandez MD on 2022 10:53 AM [email or web address] [facility] [address] , [place], [address], 07/04/2023 19:14:29 05/27/20 24 05/27/2024 XR, pelvi s, 1 or 2 view [facility] [address] [address] Patien t Name: JOJO FLORES Patijax t : 959 Patien t [facility] er: GLORIA LOPEZ EXAM DATE: 2023 EXAM: XR PELVIS AP ONLY COMPAR SUSANNAH: 2022 HISTOR Y: Follow -up of prior surger yRenae ELVIE GS: There are bilate ral hip [...] MD Electr onical ly Signed By: Beth fernnadez MD on 024 8:18 AM [facility] [address] , [place], [address], 05/27/2024 12:53:01 Result Notes Documentation Provider Name and Address Organization Details Recorded Time Xr, Hip, Unilateral, 2 Or 3 View : [facility] [address] [place] [address] Patient Name: JOJO FLORES Patient : 1960 [...] Interpreted By: Navdeep Wilson MD SANDHU MD [address] [place] [address], [address], [facility] 04/04/2023 07:10:15 Xr, Pelvis, 1 Or 2 View : [facility] [place] [address] [place] [address] Patient Name: JOJO FLORES Patient : 1960 Patient Ordering Provider: Mireille SIERRA EXAM DATE: 04/24/2023 EXAM: XR PELVIS AP ONLY COMPARISON: 04/01/2023 HISTORY: Pain. Surgery follow-up FINDINGS: Stable appearance of bilateral total hip replacements. The alignment is normal. No loosening or fracture is noted. IMPRESSION: Stable uncomplicated appearing bilateral total hip replacements Interpreted By: Doreen Haskins MD Emily SIERRA PA-C [address] [place] [address], [address], [facility] 05/07/2023 09:36:02 Xr, Knee, 4 Or More View : [facility] [place] [address] [place] [address] Patient Name: JOJO FLORES Patient : 1960 [...] Doreen Haskins MD Emily SIERRA PA-C [address] [place], [address], [facility] 05/07/2023 09:36:03 Xr, Pelvis, 1 Or 2 View : [facility] [address] [place] [address] Patient Name: JOJO FLORES Patient : 1960 [...] Interpreted By: Navdeep Wilson MD SANDHU MD [address] [place], [address], [facility] 07/04/2023 19:14:29 Xr, Pelvis, 1 Or 2 View : [facility] [address] [place] [address] Patient Name: JOJO FLORES Patient : 1960 [...] By: Navdeep Wilson MD IA LOPEZ PA-C [address] [place] [address], [phone] [address] 05/27/2024 12:53:01 Problems Name Problem SNOMED Code Status Onset Date Resolution Date Notes Provider Name and Address Organization Details Recorded Time Pain in right knee Active 2014 From Automated Load;Prov ider: Shakeel Cortes; atus: Active Not Available [facility] 6 07:57:12 Idiopathi c osteoarth ritis 361927374 Active 2015 From Automated Load;Prov ider: Shakeel Cortes;St atus: Active Not Available [facility] 6 07:57:12 Greater trochante milly pain syndrome 7983399 Active 2017 GATO Willams MD [address] [place] [address], [phone] [address] 8 09:16:09 History of total hip arthropla sty 53362024540 6 Active 2022 GATO Willams MD [address] [place] [address] 11:29:17 Problem Notes None recorded. Procedures Surgical History Date Name Laterality Status Provider Name and Address Organization Details Recorded Time 04/24/20 23 Injection - Joint/Bursa, Major completed C MAIA SIERRA PA-C [address] [place] [address], [address], [facility] 04/24/2023 12:45:52 03/09/20 23 Total hip arthroplasty completed Kelsi Galvan [facility] 04/01/2023 11:45:57 10/06/19 19 Injection - Joint; Sacrococcygeal completed KEYSHA LE MD [address] [place] [address], [address], [facility] 10/06/2018 09:37:06 10/06/19 19 Injection - Bursa; Hip completed KEYSHA LE MD [address] [place], [address], [facility] 10/06/2018 09:37:02 08/26/20 18 Injection - Joint; Sacrococcygeal completed KEYSHA LE MD [address] [place], [address], [facility] 08/26/2018 14:33:31 08/26/20 18 Injection - Bursa; Hip completed KEYSHA LE MD [address] [place], [address], [facility] 08/26/2018 14:33:17 07/22/20 18 Injection - Joint/Bursa, Major completed GATO SANDHU MD [address] [place] [address], [address], [facility] 07/22/2018 20:32:16 03/26/20 18 Injection - Joint/Bursa, Major completed GATO SANDHU MD [address] [place] [address], [address], [facility] 03/26/2018 09:14:45 10/14/19 18 [facility] 12/04/2017 11:03:21 09/03/20 16 Total knee arthroplasty completed Keyshauziel Brantley [facility] 10/28/2016 09:49:08 replacement of right knee joint completed [facility] 08/20/2018 08:38:21 total replacement of right hip joint completed [facility] 08/20/2018 08:38:30 complete repair of rotator cuff completed [facility] 08/20/2018 08:38:47 Total Hysterectomy completed [facility] 08/20/2018 08:38:56 Imaging Results None recorded. Procedure Notes None recorded. Medical Equipment None Reported. Allergies Allergen ID Allergen Name Allergen Category Reaction Reaction Severity Criticality Documentation Date Start Date Code Code System Note Provider Name and Address Organization Details Recorded Time 848529 Product containin g penicilli n (product) medicatio n Not available Not available Not available 08/01/20162009 12975 8001 SNOMED Comme nt: Creat ed By: Jared adlerCre ated Date: 010 8:32: 04 AM; Not Available [facility] 6 05:39:20 858859 acetamino phen / hydrocodo ne medicatio n itching Not available Not available 08/01/20162009 05454 2 RxNorm React ion: ITCHI NG; Comme nt: vomit ing;C reate d By: Jared adlerCre ated Date: 2009 10:19 :48 AM; Not Available [facility] 6 05:39:20 Medications Name Sig Start Date [...] 12 weeks 01/07 completed BCBS: MAMADOU #[id number] valid - 07/23/18 Not Available Not Available Not Available Vimovo 500 mg-20 mg tablet,im mediate and delay release Take 1 tablet twice a day by oral route. 01/07 completed Not Available Not Available Not Available azelastin e 137 mcg-fluti casone 50 mcg/spray nasal spray [place] 1 spray twice a day by intranas al route. active Not Available Not Available No t Available Liptruzet 10 mg-10 mg tablet 01/07 completed Medicati on Descript ion: atorvast atin-dar timibe; refills: 0 Not Available Not Available Not Available Vitals Date Recorded Body height Body mass index (BMI) Body weight Pain severity - 0-10 verbal numeric rating [Score] - Reported Systolic And Diastolic Provider Name and Address Organization Details Last Updated DateTime 04/01/2023 165.1 cm 33.8 kg/m2 37305.25 g 4 125/75 mm[Hg] Kelsi Galvan [facility] 11:46:09 Date Recorded Body height Body mass index (BMI) Body weight Pain severity - 0-10 verbal numeric rating [Score] - Reported Provider Name and Address Organization Details Last Updated DateTime 04/24/2023 165.1 cm 33.8 kg/m2 60544.25 g 0 [facility] 04/24/2023 12:10:47 Date Recorded Body height Body mass index (BMI) Body weight Pain severity - 0-10 verbal numeric rating [Score] - Reported Provider Name and Address Organization Details Last Updated DateTime 05/27/2024 165.1 cm 30.3 kg/m2 24666.81 g 4 [facility] 05/27/2024 08:32:11 Date Recorded Body height Body mass index (BMI) Body weight Pain severity - 0-10 verbal numeric rating [Score] - Reported Provider Name and Address Organization Details Last Updated DateTime 07/02/2023 165.1 cm 30.3 kg/m2 56787.81 g 1 Alexandra King [facility] 07/02/2023 11:14:25 Social History Question Answer Notes LastModified by Organizat ion Details LastModified Time Tobacco Smoking Status [facility] 09/23/2016 08:57:20 Accident Related Injury No [email or web address] Information not available 09/23/2016 What Is Your Level Of Caffeine Consumption? Moderate [email or web address] Information not available 09/23/2016 How Much Tobacco Do You Chew? None [email or web address] Information not available 09/23/2016 Education 12 Information no t available 08/20/2018 Which Of Your Hands Is Dominant? Right [email or web address] Information not available 09/23/2016 Have You Been Treated For This Problem Before? No [email or web address] Information not available 09/23/2016 Will This Be Filed As Workers' Compensation? No [email or web address] Information not available 09/23/2016 Difficulty Toileting No [...] Never Information not available 08/20/2018 Marital Status [email or web address] Informati on not available 09/23/2016 What Was The Date Of Your Most Recent Tobacco Screening? 07/02/2023 [email or web address] Information n ot available 07/02/2023 Has Tobacco Cessation Counseling Been Provided? No [email or web address] Information not available 07/02/2023 Work Related Injury? No [email or web address] Information not available 09/23/2016 Sex: Unknown Functional Status Question Answer Note LastModified by Organizat ion Details LastModified Time Do you use any illicit or recreational drugs? No [email or web address] Information not available 09/23/2016 Do you or have you ever used any other forms of tobacco or nicotine? No [email or web address] Information not available 07/02/2023 What is your level of alcohol consumption? None [email or web address] Information not available 09/23/2016 Are you currently employed? 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 No Information not available 08/20/2018 What is [...] History Condition Response Allergies/Hayfever Y Gout N Other N Anxiety/Depression Y Thyroid Disease N Kidney Stones N Heart Conditions N Emphysema N Hernia N Migraines N Glaucoma N COPD N Pneumonia N Skin Problems N Immune System Disorder N Anesthesia Complications N Heart Attack (DC) N Mental Illness N Neurological Problems N Diabetes N Rheumatic Fever N Bleeding Disorder N Arthritis Y Seizures/Epilepsy N Blood Clot N Tuberculosis N Genetic Disorder N AIDS/HIV N Acid Reflux (GERD) Y Cancer N Stroke Y Asthma Y Blood Thinners Y Alcohol Overuse/Alcohol Abuse N Sleep Apnea N High Cholesterol Y Liver Disease N Included as Review of Systems N Heart Disease N Rheumatoid Arthritis N Hypertension Y Osteoporosis N Kidney Disease N Gynecological HistoryNo gynecological history recorded. Obstetrics History GPAL:G 0 P 0 0 0 0 Past Encounters Encounter ID Performer Location Encounter Start Date Encounter Closed Date Diagnosis/Indication Diagnosis SNOMED-CT Code Diagnosis ICD10 Code Diagnosis IMO Codes Diagnosis Note [id number] C MAIA SIERRA PA-C [facility] [address] [address] 09/23/2016 08:44:37 09/23/2016 09:45:15 History of right total knee replacement 9104717950 171756 Z96.592 [id number] GATO Willams MD [facility] [address] [place] [address] 10/28/2016 09:22:38 10/28/2016 10:16:19 Replacement of total knee joint 361981788 Z96.651 History of total knee arthroplasty 5848123986 105 Z96.006 [id number] GATO Willams MD [facility] [address] [address] 11/25/2016 09:01:33 11/25/2016 09:39:54 Replacement of total knee joint 392250220 Z96.761 [id number] JONATHAN LASSITER APRN [facility] [address] [place] [address] 01/06/2017 14:22:21 01/06/2017 16:24:16 Pain of multiple joints 82671824 M25.50 multiple joitn pains and tenderness without synovitis or dactylitis reports worsening stiffness in the am until after she is able to get out of a warm showercont inues with recurring joint pains and rashes/itc jennifer obtain further labs todayconti nue on vimovo per pcp until labs are returned Pruritic rash 31150486 L 28.2 [id number] JONATHAN LASSITER APRN [facility] [address] [place] [address] 02/19/2017 13:57:50 02/23/2017 16:41:12 Anti-nuclear factor detected 677064800 R76.8 without active diseasejoi nt pains without rf and without synovitis or dactylitis ;will follow prn [id number] Emily SIERRA PA-C [facility] [address] [place] [address] 07/13/2017 09:05:24 07/13/2017 10:28:17 Pain of hip region 73111132 M25.551 Differenti al diagnosis is possible labral tear, hip DJD not apparent on x-ray, or piriformis syndrome. I have sent her for a intra-julius cular CSI for diagnostic purposes. She wishes to follow-up with Dr. Jenny willams to discuss further treatment after this test [id number] GATO Willams MD [facility] [address] [place] [address] 08/25/2017 09:49:58 08/25/2017 11:15:06 Idiopathic osteoarthritis 688936726 M19.91 [id number] C MAIA SIERRA PA-C [facility] [address] [place] [address] 11/03/2017 10:18:03 11/03/2017 11:39:12 History of total replacement of right hip joint 6999603798 89375 Z96.641 Ice to SI joint. Continue outpatient PT. Narcotics refilled. Follow-up Dr. Del Angel in 1 month. [id number] GATO Willams MD [facility] [address] [place] [address] 12/04/2017 09:58:34 12/04/2017 13:34:34 Total replacement of hip 88626119 Z96.151 [id number] GATO Willams MD [facility] [address] [place] [address] 01/15/2018 10:21:00 01/18/2018 13:35:02 Total replacement of hip 77114670 Z96.282 [id number] GATO Willams MD [facility] [address] [place] [address] 03/26/2018 08:10:51 03/26/2018 09:10:52 Total replacement of hip 60618374 Z96.641 Greater tr ochanteric pain syndrome 6322595 M70.61 [id number] GATO Willams MD [facility] [address] [address] 06/29/2018 10:02:06 06/29/2018 15:08:57 Total replacement of hip 74040520 Z96.641 Greater tr ochanteric pain syndrome 3838077 M70.61 [id number] GATO Willams MD [facility] [address] [place] [address] 07/22/2018 10:01:20 07/22/2018 11:52:48 Total replacement of hip 38276585 Z96.641 Greater tr ochanteric pain syndrome 9509686 M70.61 [id number] JAMIE MONTAÑO JR, MD [facility] [address] [place] [address] 07/28/2018 10:01:38 08/06/2018 14:24:11 Low back pain 550955097 M54.5 [id number] JAMIE MONTAÑO JR, MD [facility] [address] [place] [address] 08/13/2018 15:02:05 08/19/2018 11:48:19 Lumbar spondylosis 164450627 M47.486 [id number] KEYSHA LE MD [facility] [address] [place] [address] 08/20/2018 08:19:54 08/20/2018 09:18:49 Pain of sacroiliac joint 567337453 M53.3 Osteoarthr itis of knee 721761192 M17.0 Myofascial pain 60559519 9 M79.10 [id number] KEYSHA LE MD [facility] [address] [facility] [address] PROFESSIO NAL CHARGES [address] [place] [address] 08/26/2018 14:31:50 09/05/2018 17:29:56 Pain of sacroiliac joint 266950207 M53.3 Greater tr ochanteric pain syndrome 1357701 M70.60 [id number] KEYSHA LE MD [facility] [address] [place] [address] 09/24/2018 10:11:21 09/24/2018 11:37:14 Pain of sacroiliac joint 201845655 M53.3 Greater tr ochanteric pain syndrome 3858776 M70.60 Myofascial pain 22311580 9 M79.10 [id number] KEYSHA LE MD [facility] [address] [facility] [address] [facility] NAL CHARGES [address] [place] [address] 10/06/2018 08:28:35 10/11/2018 10:04:15 Pain of sacroiliac joint 272655398 M53.3 Greater tr ochanteric pain syndrome 4394685 M70.60 [id number] KEYSHA LE MD [facility] [address] [place] [address] 1 11/04/2018 09:23:58 11/04/2018 10:39:51 Depressive disorder 54018042 F32.9 Myofascial pain 04614601 9 M79.10 [id number] KEYSHA LE MD [facility] [address] [place] [address] 11/30/2018 07:58:58 11/30/2018 08:18:33 Myofascial pain 181542860 M79.10 [id number] DOREEN CASTREJON PA-C [facility] [address] [address] 01/07/2023 08:07:40 01/07/2023 09:41:13 Osteoarthritis of left hip joint 5707693147 40099 M16.12 Assessment : DJD Left Hip Plan:The [...] date was given today. Possible surgery location: [facility] -Patient requested overnight stay. Did have hypotensio n after first hip replacemen t.Comorbid ities: Hypertensi on, depression /anxiety, history of TIA 2000 without deficitSur gical Clearances : NoMedicati on/Metal Allergies: Yes -Penicilli ns but tolerates cephalospo rinsAllerg y Testing: NoSmoker: No [id number] GATO Willams MD [facility] [address] [facility] [address] [facility] [address] 02/10/2023 11:55:20 02/10/2023 13:42:53 Osteoarthritis of left hip joint 5737042371 83583 M16.12 ASSESSMENT : DJD LEFT hip PLAN: [...] the best of my ability. Surgery [facility]: [facility] ANTERIORSp ecial implants: InsigniaPr e-op clearance: PASSDVT prophylaxi s: ASA, TEDAdmissi on status: OUTPATIENT Discharge plan: overnight admissionP T: direct to outpatient , [facility] outpatient Allergies: PCNSkin testing: No [id number] GATO Willams MD SURGERY SCHEDULE [address] [place] [address] 03/09/2023 12:39:27 03/13/2023 11:04:55 [id number] Emily SIERRA PA-C [facility] [address] [address] 04/01/2023 11:28:26 04/01/2023 11:56:01 Postoperative care 276917631 Z48.89 3-week status post left direct anterior total of arthroplas ty. Patient is doing well. Regarding her buckling left knee and the fact she had a contralate ral knee replacemen t we will get 4 view radiograph s at a future time for her to consider total knee arthroplas ty. If pain improves I would forego the x-ray [id number] Emily SIERRA PA-C [facility] [address] [address] 04/24/2023 11:51:12 04/24/2023 12:45:00 Postoperative care 517765638 Z48.89 6-week status post left direct anterior total of arthroplas ty. Doing very well. Continue with formal therapy. Follow-up in 7 weeks for AP pelvis with Gato willams M.D. Osteoarthr itis of knee 187350252 M17.9 Symptomati c left knee arthritis with contralate ral knee replacemen t. Patient did well with steroid shots on her right knee preop therefore requested injection of left knee. Patient tolerated injection well. Follow-up as needed for conservati ve management [id number] GATO Willams MD [facility] [address] [place] [address] 07/02/2023 10:35:56 07/02/2023 11:33:49 History of total hip arthroplasty 2114037915 06 Z96.642 Doing great. Most patients can expect to see steady improvemen t for up to 1 year following arthroplas ty. Controvers ies surroundin g dental prophylaxi s reviewed. NSAIDs prn for residual pain/swell ing. Routine f/u at 1 years, or prn. [id number] GLORIA LOPEZ PA-C [facility] [address] [facility] [address] 05/27/2024 08:02:58 05/27/2024 09:14:55 History of total replacement of left hip joint 3204377302 058886 Z96.642 Assessment : IT band tendonitis , [...] if symptoms warrant. Iliotibial band friction syndrome 906257771 M76.32 Pt order faxedOk to continue celebrex [...] [employer] (MEDICARE REPLACEMENT/ ADVANTAGE - PPO) Jojo Flores [id number] Jojo Flores 05/27/2024 1 [place] [id number] Jojo Flores [id number] Jojo Flores 05/29/2024 1 [employer] - GOLD PLUS (MEDICARE REPLACEMENT/ ADVANTAGE - HMO) [id number] Jojo Flores [id number] Jojo Flores Notes Date Note Type Note Provider Name and Address Organization Details Recorded Time 04/01/2023 text/html 2-17-10Olunykn is 3 weeks s/p L direct anterior [...] but has since subsided. Emily SIERRA PA-C [address] [place], [address], [facility] 04/01/2023 11:56:49 04/24/2023 text/html 04-24-23:Patient is 5 [...] not request a refill of pain medicine. 3-99-98Iqewwvg is 3 weeks s/p L direct anterior [...] has since subsided. Emily SIERRA PA-C [address] [place], [address], [facility] 04/24/2023 12:47:21 07/02/2023 text/html ROS as noted in the HPI 76-10-18Zngldvn is 16.5 weeks s/p L direct anterior [...] not request a refill of pain medicine. 9-83-67Fbysgfd is 3 weeks s/p L direct anterior [...] but has since subsided. GATO SANDHU MD [address] [place] [address], [address], [facility] 07/02/2023 11:30:08 05/27/2024 text/html ROS as noted in the HPI 05/27/24Patient is here today for 1 year post op [...] thigh.If yes,Denies fevers, chills, or wound drainage. 81-01-99Fiygmkx is 16.5 weeks s/p L direct anterior [...] not request a refill of pain medicine. 6-65-89Wgnjezh is 3 weeks s/p L direct anterior [...] but has since subsided. GLORIA LOPEZ PA-C [facility] [place], [address], [facility] 05/27/2024 09:24:32 OBGyn Episode No OBEpisode recorded.
--- OUTSIDE RECORDS SUMMARY | 2025-07-13 09:33 | XMS_ITS | Clinical Summary ---
Author Organization [employer] ([place], [place], [place], [place], [place]) Address [address] [place] [address] Care Team Providers Care Expeditionary Fighting Vehicle Crewman Name Role Phone Tahir Aceves MD Primary Care Provider +1 [phone] Allergies Active Allergy Reactions Criticality Noted Date [...] Date Darryn rded Speak language other than Bhutanese at home Not on file 09/25/2023 Want [...] Tobacco Cessation Counseling and Screening (12+) 03/0903/09/2023 Falls Risk Screening 09/07/2024 COVID-19 VACCINE ( season) 2025 Influenza Vaccine (#1) 2025 Respiratory Syncytial Virus (RSV) Adult or (1 - 1-dose 75+ series) 2034 Medical Devices Implanted Type Area Baby Formula Worker Device Identifier Shelf Expiration Date Model / Serial / Lot Scr Low Profile 6.5x20mm 5977-8690 - [id number] Implanted:Qt y: 1 on 03/09/2023 by Nicole Ordaz MD at [facility] IMPLANTS Left: Hip JERRY:[employer] [id number] 09/30/2027 0911-4386 / / UDUA Scr Low Profile 6.5x25mm 9609-0941 - [id number] Implanted:Qt y: 1 on 03/09/2023 by Nicole Ordaz MD at [facility] IMPLANTS Left: Hip JERRY:[employer] [id number] 12/22/2027 2376-0562 / / [id number] Shell Trident Ii Tri Clusterhl 702-04-50d - [id number] Implanted:Qt y: 1 on 03/09/2023 by Nicole Ordaz MD at [facility] TOTAL JOINT CONSTRUCT Left: Hip JERRY:[employer] [id number] 09/14/2027 702-04-50 D / / [id number] Insrt Trident Poly X3 36mm D 723-00-36d - [id number] Implanted:Qt y: 1 on 03/09/2023 by Nicole Ordaz MD at [facility] TOTAL JOINT CONSTRUCT Left: Hip JERRY:[employer] [id number] 02/09/2028 723-00-36 D / / [id number] Stem Hip Insig Hi Off Sz2 0379-6891 - [id number] Implanted:Qt y: 1 on 03/09/2023 by Nicole Ordaz MD at [facility] TOTAL JOINT CONSTRUCT Left: Hip JERRY:[employer] [id number] 11/19/2027 2562-0911 / / [id number] Head Fem Ceramic V40 36mm 6570-0-136 - [id number] Implanted:Qt y: 1 on 03/09/2023 by Nicole Ordaz MD at [facility] TOTAL JOINT CONSTRUCT Left: Hip JERRY:[employer] [id number] 01/08/2028 6570-0-13 / / [id number] [place] [address] [place] [address] MEDICARE O GENERIC COMMERCIAL Advance Directives For more information, please contact: [phone] * Full Code (Latest Code Status on File) Date Activated Date Inactivated Comments 03/09/2023 11:33 AM 03/10/2023 12:59 PM * Full Code Date Activated Date Inactivated Comments 03/09/2023 5:46 AM 03/09/2023 11:33 AM Care Teams Expeditionary Fighting Vehicle Crewman Relationship Specialty Start Date End Date Tahir Aceves MD [address] [place] [address] PCP - General Family Medicine 02/19/23
--- OUTSIDE RECORDS SUMMARY | 2025-07-13 09:33 | XMS_ITS | Referral Summary ---
Author Organization [employer] ([place], [place], [place], [place], [place]) Address [address] [place] [address] Care Team Providers Care Pottery Decorator Name Role Phone Tahir Aceves MD Primary Care Provider +1 -[phone] Allergies Active Allergy Reactions Criticality Noted Date [...] Date Darryn rded Speak language other than Eritrean at home Not on file 09/25/2023 Want [...] on file Medical Devices Implanted Type Area Tray Server Device Identifier Shelf Expiration Date Model / Serial / Lot Scr Low Profile 6.5x20mm 3847-4483 - [id number] Implanted:Qt y: 1 on 03/09/2023 by Nicole Ordaz MD at [facility] IMPLANTS Left: Hip JERRY:[employer] [id number] 09/30/2027 8105-4881 / / UDUA Scr Low Profile 6.5x25mm 2155-5970 - [id number] Implanted:Qt y: 1 on 03/09/2023 by Nicole Ordaz MD at [facility] IMPLANTS Left: Hip JERRY:[employer] [id number] 12/22/2027 7766-5121 / / U3J Shell Trident Ii Tri Clusterhl 702-04-50d - [id number] Implanted:Qt y: 1 on 03/09/2023 by Nicole Ordaz MD at [facility] TOTAL JOINT CONSTRUCT Left: Hip JERRY:[employer] [id number] 09/14/2027 702-04-50 D / / [id number] Insrt Trident Poly X3 36mm D 723-00-36d - [id number] Implanted:Qt y: 1 on 03/09/2023 by Nicole Ordaz MD at [facility] TOTAL JOINT CONSTRUCT Left: Hip JERRY:[employer] [id number] 02/09/2028 723-00-36 D / / [id number] Stem Hip Insig Hi Off Sz2 5705-4223 - [id number] Implanted:Qt y: 1 on 03/09/2023 by Nicole Ordaz MD at [facility] TOTAL JOINT CONSTRUCT Left: Hip JERRY:[employer] [id number] 11/19/2027 0615-2980 / / [id number] Head Fem Ceramic V40 36mm 6570-0-136 - [id number] Implanted:Qt y: 1 on 03/09/2023 by Nicole Ordaz MD at [facility] TOTAL JOINT CONSTRUCT Left: Hip JERRY:[employer] [id number] 01/08/2028 6570-0-13 6 / / [id number] [facility] [place] [address] [facility] MEDICARE PPO GENERIC COMMERCIAL Advance Directives For more information, please contact: [phone] * Full Code (Latest Code Status on File) Date Activated Date Inactivated Comments 03/09/2023 11:33 AM 03/10/2023 12:59 PM * Full Code Date Activated Date Inactivated Comments 03/09/2023 5:46 AM 03/09/2023 11:33 AM Care Teams Pottery Decorator Relationship Specialty Start Date End Date Tahir Aceves MD [address] [place] [address] PCP - General Family Medicine 02/19/23
[2025-07-13 10:09] LABS: Hematocrit 40.5 % (37.0-47.0); Hemoglobin 13.2 g/dL (12.2-16.2); Immature Granulocytes % 0.4 %; Mean Corpuscular HGB Conc 32.6 g/dL (31.8-35.4); Mean Corpuscular Hemoglobin 28.9 pg (27.0-31.2); Mean Corpuscular Volume 88.8 fl (81-99); Nucleated Red Blood Cells % 0 %; Platelet Count 302 K/mm3 (142-424); Red Blood Count 4.56 M/mm3 (4.20-5.40); Red Cell Distribution Width-SD 37.3 fL; White Blood Count 7.3 K/mm3 (4.8-10.8)
[2025-07-13 10:32] LABS: Albumin Level 5.0 g/dl (3.5-5.0); Chloride 102 mmol/L (98-107); Sodium 142 mmol/L (136-145)
[2025-07-13 10:33] LABS: Potassium 4.7 mmoL/L (3.5-5.1)
[2025-07-13 10:35] LABS: Alanine Aminotransferase 19 U/L (12-78); Anion Gap 12.7 mEq/L (5-15); Aspartate Amino Transferase 25 U/L (14-36); Bilirubin,Unconjugated 0.8 mg/dL (0.0-1.1); Blood Urea Nitrogen 17 mg/dl (7-17); Carbon Dioxide 32 mmol/L (22.0-30.0); Cholesterol 153 mg/dl (140-200); Creatinine,Serum 0.90 mg/dl (0.52-1.04); Estimated Glomerular Filt Rate 63 ml/min (>60); GFR (African American) 76 ML/MIN (>60); Total Protein,Serum 6.7 g/dl (6.3-8.2); Triglycerides 123 mg/dl (30-150)
[2025-07-13 10:36] LABS: Alkaline Phosphatase 88 U/L (38-126); Bilirubin,Direct 0.1 mg/dl (0.0-0.4); Bilirubin,Indirect 0.8 mg/dL (0.0-0.9); Bilirubin,Total 0.9 mg/dl (0.2-1.3); Calcium 9.3 mg/dl (8.4-10.2); Glucose 106 mg/dl (74-100); HDL Cholesterol 49 mg/dl (40-60); Magnesium 1.7 mg/dl (1.6-2.3)
[2025-07-13 10:52] LABS: Free T4 (Free Thyroxine) 1.01 ng/dl (0.78-2.19)
[2025-07-13 11:07] LABS: Thyroid Stimulating Hormone 1.72 uIU/mL (0.465-4.68)
[2025-07-13 11:47] LABS: Hemoglobin A1C 6.0 % (4.0-6.0)
== END 2025-07-13 23:59 | disposition home or self-care (01) ==
LOC: LAB 09:24
PROVIDERS: PCP Family Medicine; Visit Provider Nurse Practitioner
DX: I25.10 Atherosclerotic heart disease of native coronary artery without angina pectoris (principal); I10 Essential (primary) hypertension; R42 Dizziness and giddiness; E11.9 Type 2 diabetes mellitus without complications; E78.5 Hyperlipidemia, unspecified
CPT/HCPCS: 36415; 80048; 80061; 80076; 83036; 83735; 84439; 84443; 85025

== ENCOUNTER 2025-07-26 08:39 | Outpatient (CLI) | payer MEDICARE, OTHER, SELFPAY ==
--- NOTE | 2025-07-26 09:30 | CT_ITS ---
FINAL REPORT TECHNIQUE: Thin section axial images were obtained from skull base to vertex without contrast. Coronal and sagittal reconstruction images were obtained from the axial data. Exam was performed using dose reduction techniques such as automated exposure control, adjustment of the mA and kV according to patient size, and use of iterative reconstruction technique. CLINICAL HISTORY: syncope,headaches, vagal seizures COMPARISON: None FINDINGS: There is no mass effect or midline shift. There is no hydrocephalus. There is no intracranial hemorrhage. The posterior fossa is without acute abnormality. The basilar cisterns are preserved. There are air-fluid levels in the maxillary and right sphenoid sinuses, as well as mucoperiosteal thickening in all the paranasal sinuses excepting the right frontal sinus. No acute osseous abnormality is identified. IMPRESSION: No acute intracranial abnormality. Acute and chronic sinusitis as described. Reviewed, Interpreted and Dictated by Elvia Damon MD Transcribed by Carri Santillan Authenticated and . [facility]
== END 2025-07-26 23:59 | disposition home or self-care (01) ==
LOC: RAD 08:40
PROVIDERS: PCP Family Medicine; Visit Provider Nurse Practitioner
DX: J01.00 Acute maxillary sinusitis, unspecified (principal); J32.0 Chronic maxillary sinusitis; J01.30 Acute sphenoidal sinusitis, unspecified; J32.3 Chronic sphenoidal sinusitis; J01.80 Other acute sinusitis; J32.8 Other chronic sinusitis; I25.10 Atherosclerotic heart disease of native coronary artery without angina pectoris; I08.1 Rheumatic disorders of both mitral and tricuspid valves; R51.9 Headache, unspecified; R55 Syncope and collapse
CPT/HCPCS: 70450

== ENCOUNTER 2025-08-02 10:59 | Outpatient (CLI) | payer MEDICARE, OTHER, SELFPAY ==
--- OUTSIDE RECORDS SUMMARY | 2024-02-18 10:00 | XMS_ITS ---
Author Organization [facility] Address [address] [facility] [address] [place] [id number] Care Team Providers Care Waste Water Treatment Plant Operator Name Role Phone Stepan Aceves Primary Care Provider Allergies Allergen (clinical drug ingredient) Drug/Non Drug Allergy documented on EMR Reaction Allergy Type Onset Date Status ramipril Altace Unknown Drug Allergy Active aspirin Aspirin Unknown Drug Allergy Active Substance with penicillin structure and antibacterial mechanism of action (substance) Penicillins Unknown Drug Allergy Active Results Component Value Reference Range Notes Glycohemoglobin A1c (in hous e) Reviewed date:02/19/2024 09:05:37 AM Interpretation: Performing Lab: Notes/Report: glycohemoglobin 6.1% 5 - 6.5 % REASON FOR VISIT 3 month, Needs labs, mammogram, bone density screening, & diabetic eye exam Medications Medication SIG (Take, Route, Frequency, Duration) Notes Start Date End Date Status Fluticasone Propionate 50 MCG/ACT as directed in each nostril once a day; Duration: 30 day(s) Active Aspirin Low Dose 81 MG 1 tab(s) orally once a day 04/02/2017 Active Symbicort 80-4.5 MCG/ACT 2 puff(s) inhal ed 2 times a day Active ProAir Digihaler 108 (90 Base) MCG/ACT 2 puff(s) inhaled three times a day as needed 10/01/2020 Active Spironolactone 25 MG 1 tab(s) orally onc e a day; Duration: 90 days Active Calcium + Vitamin D3 600-5 MG-MCG 1 tab(s) orally 2 times a day Active Gabapentin 600 MG 1 tab(s) orally 3 ti mes a day; Duration: 30 day(s) 01/06/2024 Active Loratadine 10 MG 1 capsule Orally Onc e a day; Duration: 30 day(s) Active Omeprazole 40 MG 1 cap(s) orally once a day Active Vitamin B-12 1000 MCG 1 tablet Orally On ce a day; Duration: 90 days Active Raloxifene HCl 60 MG TAKE 1 TABLET BY [facility] EVERY DAY; Duration: 90 days Active amLODIPine Besylate 5 MG TAKE 1 TABLET E VERY DAY; Duration: 90 days Active Montelukast Sodium 10 MG 1 tab(s) orally once a day; Duration: 90 days Active Celecoxib 200 MG 1 cap(s) orally once a day; Duration: 90 days Active Atorvastatin Calcium 40 MG 1 tab(s) orally at bedtime Active DULoxetine HCl 60 MG TAKE 1 CAPSULE ONE TIME DAILY; Duration: 90 Active Losartan Potassium 50 MG TAKE 1 TABLET T WICE DAILY; Duration: 90 Active Blood Glucose Test Strips 333 - as directed In Vitro 11/19/2023 Active ALPRAZolam 0.5 MG 1 tab orally 3 times a day 11/18 Active Metoprolol Succinate ER 25 MG TAKE 1 TABLET EVERY DAY; Duration: 90 Active Accu-Chek Softclix Lancets - as directed 11/19/2023 Active Silvadene 1 % 1 application Construction Equipment Mechanic Helper ally Once a day 05/07/2023 Active Blood Glucose Monitor System w/Device as directed 11/19/2023 Active Ozempic (0.25 or 0.5 MG/DOSE) 2 MG/3ML 0.5 mg subcutaneously once a week; Duration: 28 days Active Problems Problem Type SNOMED Code ICD Code Onset Dates Problem Status W/U Status Risk Notes Problem Anxiety (26710576) Anxiety (F41.9) Active confirmed Vital Signs Weight 186.6 lbs 02/18/2024 Blood pressure systolic 120 mm Hg 02/18/20 24 Blood pressure diastolic 74 mm Hg 024 Heart Rate 94 /min 02/18/2024 Height 62.25 in 02/18/2024 BMI 33.85 kg/m2 02/18/2024 Encounters Encounter Location Date Provider Diagnosis [facility] [address] [facility] [address] [place] [id number] 02/18/2024 Stepan Aceves Type 2 diabetes mellitus without complication, without long-term current use of insulin E11.9 ; Essential hypertension I10 ; H/o total knee replacement, right Z96.651 ; Status post total hip replacement, left Z96.642 and Anxiety F41.9 Assessments Encounter Date Diagnosis (ICD Code) Assessment Notes Treatment Notes Treatment Clinical Notes Section Notes 02/18/2024 Type 2 diabetes mellitus without complication, without long-term current use of insulin (ICD-10 - E11.9) 02/18/2024 Essential hypertension (ICD-10 - I10) 02/18/2024 H/o total knee replacement, right (ICD-10 - Z96.651) 02/18/2024 Status post total hip replacement, left (ICD-10 - Z96.642) 02/18/2024 Anxiety (ICD-10 - F41.9) Plan Of Treatment Medication Medication Name Sig Start Date Stop Date Notes Spironolactone 25 MG 1 tab(s) orally onc e a day; Duration: 90 days Ozempic (0.25 or 0.5 MG/DOSE ) 2 MG/3ML 0.5 mg subcutaneously once a week; Duration: 28 days Next Appt Details Follow Up: 3 Months, Reason: Provider Name:Stepan Cary er, 08/11/2025 11:15:00 AM, [address] [facility] [address] [facility] [address], [address], [place], [id number], Progress Notes * Lionel ROJOOB:1960 ([age] yo F)Acc No.[id number]:02/18/2024 Progress Notes Patient: Jojo MILLER Provider: Stepan Aceves M.D. :1960 A ge:63 Y S ex:Female Date:02/18/2024 Address:[address] [place] [address], [id number] Subjective: * Chief Complaints: * 1 . 3 month. 2. Needs labs, mammogram, bone density screening, & diabetic eye exam. * HPI: P sychology: The patient is here for a check up on Depression with anxiety. Pt states she is needing a refill for Alprazolam and Spironolactone sent to [facility] in [place]. * ROS: D ERMATOLOGY: no R donal. n o H araseli. G ASTROENTEROLOGY: no N ausea. n o V omiting. n o D iarrhea.? U ROLOGY: no D ifficulty urinating. n o B lood in urine. * Medical History: A IT, Hypertension, Hyperlipidemia, Normal Heart Cath, 07/2004, Neg Cardiolyte GXT, 02/03/2013, TSH=1.6, 01/19/2013, Normal EMG/NCV of legs, 09/17/2018, Cath [facility] 30% stenosis LAD, 05/19/2019. * Surgical History: D &C , Right knee bone chip removed 1990, TARA/BSO abdominal, [facility] 1994, Heart Cath, near Normal 07/2004, cystoscopy , Colonoscopy 2003, 2013, 2014, RT Shoulder 01/09/2010, Cholecystectomy 2004, RT Knee Arthoscopy 09/05/2015, RT Knee Replacement 09/03/2016, RT Hip Replacement 10/14/2017, Hip Steroid Injection 08/26/2018, 10/06/2018, Heart Cath, [facility] 05/2019. * Hospitalization/Major Diagno stic Procedure: C hest Pain 02/2006, Bronchitis, Hives- [facility] ER 08/31/2010, Chest Pain 01/2013. * Family History: F ather: 61 yrs, COPD; with CHF, diagnosed with Stroke. M other: 78 yrs, hypertension, leukemia. P aternal Grand Father: . P aternal Grand Mother: . M aternal Grand Father: . M aternal Grand Mother: . S iblings: Brother . 2 brother(s) , 4 sister(s) . 1 son(s) , 2 daughter(s) . . * Social History: C URRENT TOBACCO USE S moking Status: Patient does NOT smoke. C affeine: yes, frequency:daily. Exercise: yes. Home smoke detector use: yes. Marital Status: . New since last visit: none. Occupation: yes. Past smoking status: no, Smoking status: Does not smoke. Occup. exposure: none. Recreational drug use: no. Alcohol: no. Sexually active: yes. Travel ouside [place]: no. * Medications: T aking Loratadine 10 MG Capsule 1 capsule Orally Once a day , Taking Calcium + Vitamin D3 600-5 MG-MCG Tablet 1 tab(s) orally 2 times a day , Taking Symbicort 80-4.5 MCG/ACT Aerosol 2 puff(s) inhaled 2 times a day , Taking ProAir Digihaler 108 (90 Base) MCG/ACT Aerosol Powder Breath Activated 2 puff(s) inhaled three times a day as needed , Taking Fluticasone Propionate 50 MCG/ACT Suspension as directed in each nostril once a day , Taking Aspirin Low Dose 81 MG Tablet Delayed Release 1 tab(s) orally once a day , Taking Silvadene 1 % Cream 1 application Externally Once a day , Taking Blood Glucose Monitor System w/Device Kit as directed , Taking Accu-Chek Softclix Lancets - Miscellaneous as directed , Taking Blood Glucose Test Strips 333 - Strip as directed In Vitro , Taking ALPRAZolam 0.5 MG Tablet 1 tab orally 3 times a day , Taking Ozempic (0.25 or 0.5 MG/DOSE) 2 MG/3ML Solution Pen-injector 0.25 mg subcutaneously once a week , Taking Metoprolol Succinate ER 25 MG Tablet Extended Release 24 Hour TAKE 1 TABLET EVERY DAY , Taking DULoxetine HCl 60 MG Capsule Delayed Release Particles TAKE 1 CAPSULE ONE TIME DAILY , Taking Losartan Potassium 50 MG Tablet TAKE 1 TABLET TWICE DAILY , Taking Raloxifene HCl 60 MG Tablet TAKE 1 TABLET BY MOUTH EVERY DAY , Taking amLODIPine Besylate 5 MG Tablet TAKE 1 TABLET EVERY DAY , Taking Spironolactone 25 MG Tablet 1 tab(s) orally once a day , Taking Atorvastatin Calcium 40 MG Tablet 1 tab(s) orally at bedtime , Taking Montelukast Sodium 10 MG Tablet 1 tab(s) orally once a day , Taking Celecoxib 200 MG Capsule 1 cap(s) orally once a day , Taking Gabapentin 600 MG Tablet 1 tab(s) orally 3 times a day , Taking Omeprazole 40 MG Capsule Delayed Release 1 cap(s) orally once a day , Taking Vitamin B-12 1000 MCG Tablet 1 tablet Orally Once a day , Medication List reviewed and reconciled with the patient * Allergies: P enicillins, Aspirin, Altace. Objective: * Vitals: W t:186.6, Temp:97.8, BP:120/74, HR:94, Nurse:CHAPIS, Ht: 62.25, BMI:33.85. * Examination: G eneral Examination: General Appearance: N AD. H EENT: P ERRLA, Sclera and conjunctiva clear, nares patent. O ral cavity: n o lesions, mucosa moist and WNL, no erythema. N alissa: s upple, no lymphadenopathy. C hest: n ormal shape and expansion. H eart: R SR. L ungs: c lear to auscultation. A bdomen: soft and nontender.?Neurologic Exam: I ntact, gait normal. S kin: n ormal, no rash. P eripheral pulses: n ormal . B ack: mild dorsal kyphosis. E xtremities: n o leg edema, s urgical scar right knee. Assessment: * Assessment: 1. T ype 2 diabetes mellitus without complication, without long-term current use of insulin - E11.9 (Primary) 2 . E ssential hypertension - I10 3 . H /o total knee replacement, right - Z96.651 4 . S tatus post total hip replacement, left - Z96.642 5 . A nxiety - F41.9 Plan: * Treatment: Value Reference Range g lycohemoglobin 6.1% 5 - 6.5 % * Marilu Connelly 02/18/2024 3:2 3:56 PM > , Provider reviewed results while patient in office. 2.?Essential hypertension? Refill Spironolactone Tablet, 25 MG, 1 tab(s), orally, once a day, 90 days, 90 Tablet, Refills 1. ? * Procedure Codes: 3 6416 CAPILLARY BLOOD DRAW, 67366 GLYCATED HEMOGLOBIN TEST, Modifiers: QW * Follow Up: 3 Months * Images: Billing Information: * Visit Code: 71998 Office Visit, Est Pt., Level 3. * Procedure Codes: 73781 CAPILLARY BLOOD DRAW. 22195 GLYCATED HEMOGLOBIN TEST. Modifiers: QW * Electronic signature of Stepan Aceves MD on 08/02/2025 at 11:05 AM EST Sign off status: Pending * Provider: Stepan Aceves M.D. Date: 0 02/18/2024 Generated for Arleth do/Argelia/eTransmitting on: 1 10/02/2024 11:05 AM EST History and Physical Notes * Examination Category Sub-Category Detail Notes Category Not es General Examination HEENT: PERRLA, Scle ra and conjunctiva clear, nares patent Heart: RSR Lungs: clear to auscultatio n Abdomen: soft and nontender Extremities: no leg edema, surgic al scar right knee General Appearance: NAD Skin: normal, no rash Neurologic Exam: Intact, gait normal Neck: supple, no lymphaden opathy Oral cavity: no lesions, mucosa m oist and WNL, no erythema Peripheral pulses: normal Back: mild dorsal kyphosis Chest: normal shape and exp ansion
--- OUTSIDE RECORDS SUMMARY | 2024-05-20 05:30 | XMS_ITS ---
Author Organization [facility] Address [address] [place] [id number] Care Team Providers Care Division Human Resources Manager Name Role Phone Stepan Aceves Primary Care Provider [phone] Allergies Allergen (clinical drug ingredient) Drug/Non Drug Allergy documented on EMR Reaction Allergy Type Onset Date Status ramipril Altace Unknown Drug Allergy Active aspirin Aspirin Unknown Drug Allergy Active Substance with penicillin structure and antibacterial mechanism of action (substance) Penicillins Unknown Drug Allergy Active REASON FOR VISIT telehealth [phone] f/u Medications Medication SIG (Take, Route, Frequency, Duration) Notes Start Date End Date Status ALPRAZolam 0.5 MG 1 tab orally 3 times a day 05/20 Active amLODIPine Besylate 5 MG TAKE 1 TABLET E VERY DAY; Duration: 90 days Active Spironolactone 25 MG 1 tab(s) orally onc e a day; Duration: 90 days Active Losartan Potassium 50 MG TAKE 1 TABLET T WICE DAILY; Duration: 90 Active Metoprolol Succinate ER 25 MG TAKE 1 TABLET EVERY DAY; Duration: 90 Active Omeprazole 40 MG 1 cap(s) orally once a day Active Vitamin B-12 1000 MCG 1 tablet Orally On ce a day; Duration: 90 days Active Gabapentin 600 MG 1 tab(s) orally 3 ti mes a day; Duration: 30 day(s) 01/06/2024 Active DULoxetine HCl 60 MG TAKE 1 CAPSULE ONE TIME DAILY; Duration: 90 Active Ozempic (0.25 or 0.5 MG/DOSE) 2 MG/3ML 0.5 mg subcutaneously once a week; Duration: 28 days Active Celecoxib 200 MG 1 cap(s) orally once a day; Duration: 90 days Active Atorvastatin Calcium 40 MG 1 tab(s) orally at bedtime Active Montelukast Sodium 10 MG 1 tab(s) orally once a day; Duration: 90 days Active Blood Glucose Test Strips 333 - as directed In Vitro 11/19/2023 Active Raloxifene HCl 60 MG TAKE 1 TABLET BY [facility] EVERY DAY; Duration: 90 days Active Symbicort 80-4.5 MCG/ACT 2 puff(s) inhal ed 2 times a day Active ProAir Digihaler 108 (90 Base) MCG/ACT 2 puff(s) inhaled three times a day as needed 10/01/2020 Active Aspirin Low Dose 81 MG 1 tab(s) orally once a day 04/02/2017 Active Silvadene 1 % 1 application Assurance Specialist ally Once a day 05/07/2023 Active Fluticasone Propionate 50 MCG/ACT as directed in each nostril once a day; Duration: 30 day(s) Active Loratadine 10 MG 1 capsule Orally Onc e a day; Duration: 30 day(s) Active Calcium + Vitamin D3 600-5 MG-MCG 1 tab(s) orally 2 times a day Active Vital Signs Weight 186 lbs 05/20/2024 Blood pressure systolic 128 mm Hg 05/20/20 24 Blood pressure diastolic 80 mm Hg 024 Heart Rate 00 /min 05/20/2024 Height 62.25 in 05/20/2024 BMI 33.74 kg/m2 05/20/2024 Encounters Encounter Location Date Provider Diagnosis [facility] [facility] [facility] [address] [id number] 05/20/2024 Stepan Aceves Anxiety F41.9 ; Essential hypertension I10 and History of right hip replacement Z96.641 Assessments Encounter Date Diagnosis (ICD Code) Assessment Notes Treatment Notes Treatment Clinical Notes Section Notes 05/20/2024 Anxiety (ICD-10 - F41.9) 05/20/2024 Essential hypertension (ICD-10 - I10) 05/20/2024 History of right hip replacement (ICD-10 - Z96.641) Plan Of Treatment Medication Medication Name Sig Start Date Stop Date Notes ALPRAZolam 0.5 MG 1 tab orally 3 times a day 05/20/2024 Spironolactone 25 MG 1 tab(s) orally onc e a day; Duration: 90 days Next Appt Details Follow Up: 3 Months, Reason: Provider Name:Stepan Cary er, 08/11/2025 11:15:00 AM, [address], [address], [place], [place], [id number], Progress Notes * Lionel ROJOOB:1960 ([age] yo F)Acc No.[id number]:05/20/2024 Progress Notes Patient: Jojo MILLER Provider: Stepan Aceves M.D. :1960 A ge:63 Y S ex:Female Date:05/20/2024 Address:[address] [place] [address], [place], [id number] Subjective: * Chief Complaints: * 1 . Telehealth [phone] f/u. * HPI: P sychology: The patient states she is needing a refill for Alprazolam and Spironolactone sent to [facility] in [place]. * ROS: D ERMATOLOGY: no R donal. n o H araseli. G ASTROENTEROLOGY: no N ausea. n o V omiting. n o D iarrhea.? U ROLOGY: no D ifficulty urinating. n o B lood in urine. * Medical History: A IT, Hypertension, Hyperlipidemia, Normal Heart Cath, 07/2004, Neg Cardiolyte GXT, 02/03/2013, TSH=1.6, 01/19/2013, Normal EMG/NCV of legs, 09/17/2018, Cath [facility] 30% stenosis LAD, 05/19/2019. * Surgical History: D &C , Right knee bone chip removed 1990, TARA/BSO abdominal, [facility] 1994, Heart Cath, near Normal 07/2004, cystoscopy , Colonoscopy 2003, 2013, 2014, RT Shoulder 01/09/2010, Cholecystectomy 2004, RT Knee Arthoscopy 09/05/2015, RT Knee Replacement 09/03/2016, RT Hip Replacement 10/14/2017, Hip Steroid Injection 08/26/2018, 10/06/2018, Heart Cath, [facility] 05/2019. * Hospitalization/Major Diagno stic Procedure: C hest Pain 02/2006, Bronchitis, Hives- [facility] ER 08/31/2010, Chest Pain 01/2013. * Family [...] Once a day , Taking Blood Glucose Test Strips 333 - Strip as directed In Vitro , Taking Raloxifene HCl 60 MG Tablet TAKE 1 TABLET BY MOUTH EVERY DAY , Taking Atorvastatin Calcium 40 MG Tablet [...] 1 tablet Orally Once a day , Taking Spironolactone 25 MG Tablet 1 tab(s) orally once a day , Taking Ozempic (0.25 or 0.5 MG/DOSE) 2 MG/3ML Solution Pen-injector 0.5 mg subcutaneously once a week , Taking ALPRAZolam 0.5 MG Tablet 1 tab orally 3 times a day , Taking DULoxetine HCl 60 MG Capsule Delayed Release Particles TAKE 1 CAPSULE ONE TIME DAILY , Taking Losartan Potassium 50 MG Tablet TAKE 1 TABLET TWICE DAILY , Taking Metoprolol Succinate ER 25 MG Tablet Extended Release 24 Hour TAKE 1 TABLET EVERY DAY , Taking amLODIPine Besylate 5 MG Tablet TAKE 1 TABLET EVERY DAY , Medication List reviewed and reconciled with the patient * Allergies: P enicillins, Aspirin, Altace. Objective: * Vitals: W t:186, Temp:97.6, BP:128/80, HR:00, Nurse:CHAPIS, Ht: 62.25, BMI:33.74. * Examination: G eneral Examination: General Appearance: TeleHealth visit:, Speaks in complete sentences, cogent. Assessment: * Assessment: 1. A nxiety - F41.9 (Primary) 2 . E ssential hypertension - I10 ?3. H istory of right hip replacement - Z96.641 Plan: * Treatment: 2. E ssential hypertension Refill Spironolactone Tablet, 25 MG, 1 tab(s), orally, once a day, 90 days, 90 Tablet, Refills 1.? * Procedure Codes: 9 9213 OFFICE VIST, EST PT. LEVEL 3, TELEHEALTH, Modifiers: 95 * Follow Up: 3 Months * Images: Billing Information: * Visit Code: * Procedure Codes: 99128 OFFICE VIST, EST PT. LEVEL 3, TELEHEALTH. Modifiers: 95 * Electronic signature of Stepan Aceves MD on 08/02/2025 at 11:04 AM EST Sign off status: Pending * Provider: Stepan Aceves M.D. Date: 0 05/20/2024 Generated for Arleth do/Argelia/Dk on: 10/02/2024 11:04 AM EST History and Physical Notes * Examination Category Sub-Category Detail Notes Category Not es General Examination General Appearance: TeleHeal th visit:, Speaks in complete sentences, cogent
--- OUTSIDE RECORDS SUMMARY | 2024-07-22 06:30 | XMS_ITS ---
Author Organization [facility] Address [address] [facility] [address] [place] [id number] Care Team Providers Care Carpenters Name Role Phone Stepan Aceves Primary Care Provider [phone] Allergies Allergen (clinical drug ingredient) Drug/Non Drug Allergy documented on EMR Reaction Allergy Type Onset Date Status ramipril Altace Unknown Drug Allergy Active aspirin Aspirin Unknown Drug Allergy Active Substance with penicillin structure and antibacterial mechanism of action (substance) Penicillins Unknown Drug Allergy Active Results Component Value Reference Range Notes CBC Venipuncture (in house) Reviewed date:07/22/2024 12:49:21 PM Interpretation: Performing Lab: Notes/Report: wbc 8.5 3.5 - 10 lymph 30.8% 15 - 50 mid 6.7% 2 - 15 gran 62.5% 35 - 80 rbc 4.42 3.5 - 5.5 hgb 13.3 11.5 - 16.5 hct 39.6 35 - 55 mcv 89.6 75 - 100 mch 30.1 25 - 35 mchc 33.6 31 - 38 platlet 320 100 - 400 Glycohemoglobin A1c (in hous e) Reviewed date:07/22/2024 12:49:33 PM Interpretation: Performing Lab: Notes/Report: glycohemoglobin 6.1% 5 - 6.5 % P-Comprehensive Metabolic Pa alla (CMP) Reviewed date:07/25/2024 01:50:07 PM Interpretation:satisfactory Performing Lab: Notes/Report: Test performed by [employer] [facility] , [address], [place] [address] Brennan Parry MD, Counseling Center Director CLIA: [id number] Sodium 144 135-145 mmol/L Potassium 4.6 3.5-5.3 mmol/L Chloride 106 97-108 mmol/L CO2 28 22-32 mmol/L Glucose 107 65-99 mg/dL BUN 17 8-23 mg/dL Creatinine 0.91 0.50-1.00 mg/dL Calcium 9.8 8.6-10.4 mg/dL eGFR by Creatinine 70 >59 mL/min/1.73m2 Protein 6.9 6.0-8.3 g/dL Albumin 4.7 3.5-5.3 g/dL Alkaline Phosphatase 113 35-121 IU/L ALT (SGPT) 18 <5-47 IU/L AST (SGOT) 19 <5-40 IU/L Bilirubin, Total 0.4 <0.2-1.2 mg/dL A/G Ratio 2.1 1.1-2.5 P-Lipid Panel Reviewed date:07/25/2024 01:50:07 PM Interpretation:Normal Performing Lab: Notes/Report: Test performed by [employer], [address] , [address], [place] [address] Brennan Parry MD, Counseling Center Director CLIA: [id number] Cholesterol 175 <200 mg/dL Triglycerides 113 <150 mg/dL HDL Cholesterol 55 >39 mg/dL Cholesterol / HDL Ratio 3.18 0.00-4.44 Ratio Non-HDL Cholesterol 120 <130 mg/dL LDL Cholesterol (Calculation) 97 <130 mg/dL LDL Cholesterol Levels* Less than 100 mg/dL Optimal 100 to 129 mg/dL Near Optimal/ Above Optimal 130 to 159 mg/dL Borderline High 160 to 189 mg/dL High 190 mg/dL and above Very High * Categories as recommended by the 2004 ATPIII guidelines LDL/HDL Ratio 1.8 <3.3 Ratio LDL Cholesterol Patient History Test Date: 07/22/2024 LDL Results: 97 Units: mg/dL % Change: - P-TSH Reviewed date:07/25/2024 01:50:07 PM Interpretation:Normal Performing Lab: Notes/Report: Test performed by [facility] [address] [place] [address] , [place] [address] Brennan Parry MD, Counseling Center Director CLIA: [id number] TSH 1.57 0.43-5.25 mU/L REASON FOR VISIT refills Medications Medication SIG (Take, Route, Frequency, Duration) Notes Start Date End Date Status Raloxifene HCl 60 MG TAKE 1 TABLET BY MO UT EVERY DAY; Duration: 90 days Active Celecoxib 200 MG TAKE 1 CAPSULE EVERY DAY; Duration: 90 Active Montelukast Sodium 10 MG TAKE 1 TABLET E VERY DAY; Duration: 90 Active Omeprazole 40 MG TAKE 1 CAPSULE ONE T CAMILA DAILY; Duration: 90 Active Atorvastatin Calcium 40 MG TAKE 1 TABLET AT BEDTIME; Duration: 90 Active ALPRAZolam 0.5 MG 1 tab orally 3 times a day 05/20 Active Spironolactone 25 MG 1 tab(s) orally onc e a day; Duration: 90 days Active amLODIPine Besylate 5 MG TAKE 1 TABLET E VERY DAY; Duration: 90 days Active Metoprolol Succinate ER 25 MG TAKE 1 TABLET EVERY DAY; Duration: 90 Active Losartan Potassium 50 MG TAKE 1 TABLET T WICE DAILY; Duration: 90 Active DULoxetine HCl 60 MG TAKE 1 CAPSULE ONE TIME DAILY; Duration: 90 Active Ozempic (0.25 or 0.5 MG/DOSE) 2 MG/3ML 0.5 mg subcutaneously once a week; Duration: 28 days Active Vitamin B-12 1000 MCG 1 tablet Orally On ce a day; Duration: 90 days Active Gabapentin 600 MG 1 tab(s) orally 3 ti mes a day; Duration: 30 day(s) 01/06/2024 Active Aspirin Low Dose 81 MG 1 tab(s) orally once a day 04/02/2017 Active Fluticasone Propionate 50 MCG/ACT as directed in each nostril once a day; Duration: 30 day(s) Active ProAir Digihaler 108 (90 Base) MCG/ACT 2 puff(s) inhaled three times a day as needed 10/01/2020 Active Symbicort 80-4.5 MCG/ACT 2 puff(s) inhal ed 2 times a day Active Calcium + Vitamin D3 600-5 MG-MCG 1 tab(s) orally 2 times a day Active Loratadine 10 MG 1 capsule Orally Onc e a day; Duration: 30 day(s) Active Vital Signs Weight 189.4 lbs 07/22/2024 Blood pressure systolic 120 mm Hg 07/22/20 24 Blood pressure diastolic 70 mm Hg 024 Heart Rate 68 /min 07/22/2024 Height 62.25 in 07/22/2024 BMI 34.36 kg/m2 07/22/2024 Encounters Encounter Location Date Provider Diagnosis [facility] [address], [place] [id number] 07/22/2024 Stepan Aceves Essential hypertensi on I10 ; History of right hip replacement Z96.641 ; Status post total hip replacement, left Z96.642 ; Type 2 diabetes mellitus without complication, without long-term current use of insulin E11.9 ; Other chronic pain G89.29 ; Osteopenia, unspecified location M85.80 ; Moderate persistent asthmatic bronchitis without complication J45.40 ; Other hyperlipidemia E78.4 and Mixed hyperlipidemia E78.2 Assessments Encounter Date Diagnosis (ICD Code) Assessment Notes Treatment Notes Treatment Clinical Notes Section Notes 07/22/2024 Essential hypertension (ICD-10 - I10) 07/22/2024 History of right hip replacement (ICD-10 - Z96.641) 07/22/2024 Status post total hip replacement, left (ICD-10 - Z96.642) 07/22/2024 Type 2 diabetes mellitus without complication, without long-term current use of insulin (ICD-10 - E11.9) 07/22/2024 Other chronic pain (ICD-10 - G89.29) 07/22/2024 Osteopenia, unspecified location (ICD-10 - M85.80) 07/22/2024 Moderate persistent asthmatic bronchitis without complication (ICD-10 - J45.40) 07/22/2024 Other hyperlipidemia (ICD-10 - E78.4) 07/22/2024 Mixed hyperlipidemia (ICD-10 - E78.2) Plan Of Treatment Next Appt Details Follow Up: 4 Months, Reason: Provider Name:Stepan Cary er, 08/11/2025 11:15:00 AM, [address], [address], [place], [place], [id number], Progress Notes * Lionel ROJOOB:1960 ([age] yo F)Acc No.[id number]:07/22/2024 Progress Notes Patient: Jojo MILLER Provider: Stepan Aceves M.D. :1960 A ge:63 Y S ex:Female Date:07/22/2024 Address:[address] [place] [address], [place], [id number] Subjective: * Chief Complaints: * 1 . Refills. * HPI: C ardiology: The patient is here today for a check up on Hypertension, Hyperlipidemia, and Diabetes. Pt states she saw Cardiology last and they are wanting results of her lab studies. Denies : Chest Pain. D enies : Short of Breath. D enies : Dizziness. D enies : Palpitations. * ROS: D ERMATOLOGY: no R donal. n o H araseli. G ASTROENTEROLOGY: no N ausea. n o V omiting. n o D iarrhea.? U ROLOGY: no D ifficulty urinating. n o B lood in urine. * Medical History: A IT, Hypertension, Hyperlipidemia, Normal Heart Cath, 07/2004, Neg Cardiolyte GXT, 02/03/2013, TSH=1.6, 01/19/2013, Normal EMG/NCV of legs, 09/17/2018, Cath [facility] 30% stenosis LAD, 05/19/2019. * Surgical History: D &C , Right knee bone chip removed 1990, TARA/BSO abdominal, H 1994, Heart Cath, near Normal 07/2004, cystoscopy , Colonoscopy 2003, 2013, 2014, RT Shoulder 01/09/2010, Cholecystectomy 2004, RT Knee Arthoscopy 09/05/2015, RT Knee Replacement 09/03/2016, RT Hip Replacement 10/14/2017, Hip Steroid Injection 08/26/2018, 10/06/2018, Heart Cath, [facility] 05/2019. * Hospitalization/Major Diagno stic Procedure: C hest Pain 02/2006, Bronchitis, Hives- [facility] ER 08/31/2010, Chest Pain 01/2013. * [...] tab(s) orally once a day , Taking Gabapentin 600 MG Tablet 1 tab(s) orally 3 times a day , Taking Vitamin B-12 1000 MCG Tablet 1 tablet Orally Once a day , Taking Ozempic (0.25 or 0.5 MG/DOSE) 2 MG/3ML Solution Pen-injector 0.5 mg subcutaneously once a week , Taking DULoxetine HCl 60 MG Capsule [...] tab(s) orally once a day , Taking ALPRAZolam 0.5 MG Tablet 1 tab orally 3 times a day , Taking Atorvastatin Calcium 40 MG Tablet TAKE 1 TABLET AT BEDTIME , Taking Omeprazole 40 MG Capsule Delayed Release TAKE 1 CAPSULE ONE TIME DAILY , Taking Montelukast Sodium 10 MG Tablet TAKE 1 TABLET EVERY DAY , Taking Celecoxib 200 MG Capsule TAKE 1 CAPSULE EVERY DAY , Taking Raloxifene HCl 60 MG Tablet TAKE 1 TABLET BY MOUTH EVERY DAY , Medication List reviewed and reconciled with the patient * Allergies: P enicillins, Aspirin, Altace. Objective: * Vitals: W t:189.4, Temp:97.9, BP:120/70, HR:68, Nurse:CHAPIS, Ht: 62.25, BMI:34.36. * Examination: G eneral Examination: General Appearance: [...] scar right knee. Assessment: * Assessment: 1. E ssential hypertension - I10 (Primary) 2 . H istory of right hip replacement - Z96.641 3 . S tatus post total hip replacement, left - Z96.642 ? 4 . T ype 2 diabetes mellitus without complication, without long-term current use of insulin - E11.9 5 . O ther chronic pain - G89.29 6 . O steopenia, unspecified location - M85.80 7 . M oderate persistent asthmatic bronchitis without complication - J45.40 8 . O ther hyperlipidemia - E78.4 9 . M ixed hyperlipidemia - E78.2 Plan: * Treatment: Value Reference Range A /G Ratio 2.1 1.1-2.5 - * A lbumin 4.7 3.5-5.3 - g/dL * A lkaline Phosphatase 113 35-121 - IU/L * A LT (SGPT) 18 <5-47 - IU/L * A ST (SGOT) 19 <5-40 - IU/L * B ilirubin, Total 0.4 <0.2-1.2 - mg/dL * B UN 17 8-23 - mg/dL * C alcium 9.8 8.6-10.4 - mg/dL * C hloride 106 97-108 - mmol/L * C O2 28 22-32 - mmol/L * C reatinine 0.91 0.50-1.00 - mg/dL * G lucose 107 H 65-99 - mg/dL * P otassium 4.6 3.5-5.3 - mmol/L * S odium 144 135-145 - mmol/L * P rotein 6.9 6.0-8.3 - g/dL * e GFR by Creatinine 70 >59 - mL/min/1.73m2 * Marilu Connelly 07/25/2024 1: 49:51 PM >Patient informed of normal results. ?LAB: CBC Venipuncture (in house) (Collection Date & Time - 07/22/2024)* Value Reference Range w bc 8.5 3.5 - 10 * l ymph 30.8% 15 - 50 * m id 6.7% 2 - 15 * g ran 62.5% 35 - 80 * r bc 4.42 3.5 - 5.5 * h gb 13.3 11.5 - 16.5 * h ct 39.6 35 - 55 * m cv 89.6 75 - 100 * m ch 30.1 25 - 35 * m chc 33.6 31 - 38 * p latlet 320 100 - 400 * Marilu Connelly 07/22/2024 11 :57:55 AM > , Provider reviewed results while patient in office. 2.?Type 2 diabetes mellitus without complication, without long-term current use of insulin?LAB: Glycohemoglobin A1c (in house) (Collection Date & Time - 07/22/2024)* Value Reference Range g lycohemoglobin 6.1% 5 - 6.5 % * Marilu Connelly 07/22/2024 11 :56:14 AM > , Provider reviewed results while patient in office. 3.?Osteopenia, unspecified location?LAB: P-TSH (Collection Date & Time - 07/22/2024 12:00 PM)?Normal* Value Reference Range T SH 1.57 0.43-5.25 - mU/L * Marilu Connelly 07/25/2024 1: 49:51 PM >Patient informed of normal results. 4.?Moderate persistent asthmatic bronchitis without complication?LAB: CBC Venipuncture (in house) (Collection Date & Time - 07/22/2024)* Value Reference Range w bc 8.5 3.5 - 10 * l ymph 30.8% 15 - 50 * m id 6.7% 2 - 15 * g ran 62.5% 35 - 80 * r bc 4.42 3.5 - 5.5 * h gb 13.3 11.5 - 16.5 * h ct 39.6 35 - 55 * m cv 89.6 75 - 100 * m ch 30.1 25 - 35 * m chc 33.6 31 - 38 * p latlet 320 100 - 400 * Marilu Connelly 07/22/2024 11 :57:55 AM > , Provider reviewed results while patient in office. 5.?Mixed hyperlipidemia?LAB: P-Lipid Panel (Collection Date & Time - 07/22/2024 12:00 PM)?Normal* Value Reference Range C holesterol / HDL Ratio 3.18 0.00-4.44 - Ratio * C holesterol 175 <200 - mg/dL * H DL Cholesterol 55 >39 - mg/dL * L DL Cholesterol (Calculation) 97 <130 - mg/d L * L DL/HDL Ratio 1.8 <3.3 - Ratio * N on-HDL Cholesterol 120 <130 - mg/dL * T riglycerides 113 <150 - mg/dL * Marilu Connelly Severiano 07/25/2024 1: 49:51 PM >Patient informed of normal results. * Procedure Codes: 8 5025 CBC WITH AUTO DIFF, 26796 VENIPUNCT, ROUTINE*, 16319 CAPILLARY BLOOD DRAW, 13536 GLYCATED HEMOGLOBIN TEST, Modifiers: QW * Follow Up: 4 Months * Images: Billing Information: * Visit Code: 97016 Office Visit, Est Pt., Level 4. * Procedure Codes: 72329 CBC WITH AUTO DIFF. 34316 VENIPUNCT, ROUTINE*. 67369 CAPILLARY BLOOD DRAW. 26408 GLYCATED HEMOGLOBIN TEST. Modifiers: QW * Electronic signature of Stepan Aceves MD on 08/02/2025 at 11:05 AM EST Sign off status: Pending * Provider: Stepan Aceves M.D. Date: 09/21/2023 Generated for Arleth do/Argelia/eTransmitting on: 10/02/2024 11:05 AM EST History and Physical Notes * HPI (History of Present Illness) Category Sub-Category Detail Notes Category Not es Cardiology Short of Breath Chest Pain Palpitations Dizziness Examination Category Sub-Category Detail Notes Category Not [...]
--- OUTSIDE RECORDS SUMMARY | 2024-11-25 04:30 | XMS_ITS ---
Author Organization [facility] Address [address] [facility] [address] [place] [id number] Care Team Providers Care Sales Technician Name Role Phone Stepan Aceves Primary Care Provider [phone] Allergies Allergen (clinical drug ingredient) Drug/Non Drug Allergy documented on EMR Reaction Allergy Type Onset Date Status ramipril Altace Unknown Drug Allergy Active aspirin Aspirin Unknown Drug Allergy Active Substance with penicillin structure and antibacterial mechanism of action (substance) Penicillins Unknown Drug Allergy Active Results Component Value Reference Range Notes CBC Venipuncture (in house) Reviewed date:11/25/2024 12:24:43 PM Interpretation: Performing Lab: Notes/Report: wbc 7.3 3.5 - 10 lymph 28.0% 15 - 50 mid 6.1% 2 - 15 gran 65.9% 35 - 80 rbc 4.48 3.5 - 5.5 hgb 13.2 11.5 - 16.5 hct 38.6 35 - 55 mcv 86.2 75 - 100 mch 29.5 25 - 35 mchc 34.2 31 - 38 platlet 305 100 - 400 Glycohemoglobin A1c (in hous e) Reviewed date:11/25/2024 12:24:56 PM Interpretation: Performing Lab: Notes/Report: glycohemoglobin 6.3% 5 - 6.5 % P-Comprehensive Metabolic Pa alla (CMP) Reviewed date:11/30/2024 05:12:58 PM Interpretation:Normal Performing Lab: Notes/Report: Test performed by [facility] , [address], [place] [address] Brennan Parry MD, Fixed Route Operator CLIA: [id number] Sodium 142 135-145 mmol/L Potassium 4.9 3.5-5.3 mmol/L Chloride 106 97-108 mmol/L CO2 27 22-32 mmol/L Glucose 94 65-99 mg/dL BUN 16 8-23 mg/dL Creatinine 0.74 0.50-1.00 mg/dL Calcium 9.7 8.6-10.4 mg/dL eGFR by Creatinine 90 >59 mL/min/1.73m2 Protein 6.7 6.0-8.3 g/dL Albumin 4.4 3.5-5.3 g/dL Alkaline Phosphatase 104 35-121 IU/L ALT (SGPT) 17 <5-47 IU/L AST (SGOT) 16 <5-40 IU/L Bilirubin, Total 0.4 <0.2-1.2 mg/dL A/G Ratio 1.9 1.1-2.5 P-Microalbumin/Creatinine, R andom Urine Sample Reviewed date:11/30/2024 05:12:58 PM Interpretation:Normal Performing Lab: Notes/Report: Test performed by [facility] [address] , [address], [place] [address] Brennan Parry MD, Fixed Route Operator CLIA: [id number] Albumin/Creatinine Ratio, Urine <3.07 0-30 ug/m g Microalbumin, Urine, Random <0.3 Creatinine, Urine 97.7 Holter Monitor- 48 hour Reviewed date:02/14/2025 01:31:21 PM Interpretation: Performing Lab: Notes/Report: Reason For Referral Reason refer to Dr. Guerrero for colonoscopy Diagnosis 1 Screening for colon cancer (Z12.11) Referral Organization David Referring Provider First Name Stepan Oro Referring Provider Last Name Ketan Referring Provider Speciality Family Pra ctice Referred Provider Specialty Gastroentero logy General Notes Oksana Goyal 2024 10:18:03 AM > faxed to Dr. Guerrero office, Oksana Goyal 12/09/2024 09:05:27 AM > appt is 02/06/2025 Referral Priority Routine REASON FOR VISIT 4 months Medications Medication SIG (Take, Route, Frequency, Duration) Notes Start Date End Date Status Celecoxib 200 MG TAKE 1 CAPSULE EVERY DAY; Duration: 90 Active Montelukast Sodium 10 MG TAKE 1 TABLET E VERY DAY; Duration: 90 Active Atorvastatin Calcium 40 MG TAKE 1 TABLET AT BEDTIME; Duration: 90 Active Omeprazole 40 MG TAKE 1 CAPSULE EVERY DAY; Duration: 90 Active amLODIPine Besylate 5 MG TAKE 1 TABLET E VERY DAY; Duration: 90 days Active Spironolactone 25 MG 1 tab(s) orally onc e a day; Duration: 90 days Active ALPRAZolam 0.5 MG 1 tab orally 3 times a day; Duration: 30 day(s) 11/25/2024 Active Metoprolol Succinate ER 25 MG TAKE 1 TABLET EVERY DAY; Duration: 90 Active Losartan Potassium 50 MG TAKE 1 TABLET T WICE DAILY; Duration: 90 Active DULoxetine HCl 60 MG TAKE 1 CAPSULE ONE TIME DAILY; Duration: 90 Active Raloxifene HCl 60 MG TAKE 1 TABLET BY [facility] EVERY DAY; Duration: 90 days Active Gabapentin 600 MG 1 tab(s) orally 3 ti mes a day; Duration: 30 days 11/25/2024 Active Ozempic (0.25 or 0.5 MG/DOSE) 2 MG/3ML 0.5 mg subcutaneously once a week; Duration: 28 days Active Aspirin Low Dose 81 MG 1 tab(s) orally once a day 04/02/2017 Active Vitamin B-12 1000 MCG 1 tablet Orally On ce a day; Duration: 90 days Active Calcium + Vitamin D3 600-5 MG-MCG 1 tab(s) orally 2 times a day Active Loratadine 10 MG 1 capsule Orally Onc e a day; Duration: 30 day(s) Active ProAir Digihaler 108 (90 Base) MCG/ACT 2 puff(s) inhaled three times a day as needed 10/01/2020 Active Symbicort 80-4.5 MCG/ACT 2 puff(s) inhal ed 2 times a day Active Fluticasone Propionate 50 MCG/ACT as directed in each nostril once a day; Duration: 30 day(s) Active Vital Signs Weight 190.2 lbs 11/25/2024 Blood pressure systolic 120 mm Hg 11/26/19 25 Blood pressure diastolic 70 mm Hg 025 Heart Rate 62 /min 11/25/2024 Height 62.25 in 11/25/2024 BMI 34.51 kg/m2 11/25/2024 Encounters Encounter Location Date Provider Diagnosis [facility] [address] [facility] [address] [facility] [address] [place] [id number] 11/25/2024 Stepan Aceves Essential hypertensi on I10 ; Depression with anxiety F41.8 ; Mixed hyperlipidemia E78.2 ; History of right hip replacement Z96.641 ; Palpitations R00.2 ; Other chronic pain G89.29 ; Screen for colon cancer Z12.11 and Type 2 diabetes mellitus without complication, without long-term current use of insulin E11.9 Assessments Encounter Date Diagnosis (ICD Code) Assessment Notes Treatment Notes Treatment Clinical Notes Section Notes 11/25/2024 Essential hypertension (ICD-10 - I10) 11/25/2024 Depression with anxiety (ICD-10 - F41.8) 11/25/2024 Mixed hyperlipidemia (ICD-10 - E78.2) 11/25/2024 History of right hip replacement (ICD-10 - Z96.641) 11/25/2024 Palpitations (ICD-10 - R00.2) 11/25/2024 Other chronic pain (ICD-10 - G89.29) 11/25/2024 Screen for colon cancer (ICD-10 - Z12.11) 11/25/2024 Type 2 diabetes mellitus without complication, without long-term current use of insulin (ICD-10 - E11.9) Plan Of Treatment Medication Medication Name Sig Start Date Stop Date Notes Spironolactone 25 MG 1 tab(s) orally onc e a day; Duration: 90 days ALPRAZolam 0.5 MG 1 tab orally 3 times a day; Duration: 30 day(s) 11/25/2024 Raloxifene HCl 60 MG TAKE 1 TABLET BY [facility] EVERY DAY; Duration: 90 days Gabapentin 600 MG 1 tab(s) orally 3 ti mes a day; Duration: 30 days 11/25/2024 Referrals Referral Date Details 11/25/2024 11/25/2024, refer to Dr. Guerrero for colonoscopy Next Appt Details Follow Up: 4 Months, Reason: Provider Name:Stepan Cary , 08/11/2025 11:15:00 AM, [address] [facility] [address] [facility], [address], [place], [id number], Progress Notes * Cindy ROJO:1960 ([age] yo F)Acc No.[id number]:11/25/2024 Progress Notes Patient: Jojo MILLER Provider: Stepan Aceves M.D. :1960 A ge:64 Y S ex:Female Date:11/25/2024 Address:[address] [place] [address], [place], [id number] Subjective: * Chief Complaints: * 1 . 4 months. * HPI: C ardiology: The patient is here today for a check up on Hypertension, Hyperlipidemia, and Diabetes. Pt states doing good except for some increased fatigue. 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 Pt states one day she was pulling one of the grand babies and feel some heart palpitations that lasted about 30 seconds. Pt states she has not had any since that time. Pt is fasting. Pt is needing a refill for Raloxifene,Gabapentin, Alprazolam and Sipronolactone sent to [facility] in [place]. 64 year old female presents with c/o Palpitations w ith exertion. Denies : Chest Pain. D enies : Short of Breath. D enies : Dizziness. G astroenterology: Asks about colonoscopy, but thinks she had negative Cologuard last year. Uncertain. * ROS: D ERMATOLOGY: no R donal. n o H araseli. G ASTROENTEROLOGY: no N ausea. n o V omiting. n o D iarrhea.? U ROLOGY: no D ifficulty urinating. n o B lood in urine. * Medical History: A IT, Hypertension, Hyperlipidemia, Normal Heart Cath, 07/2004, Neg Cardiolyte GXT, 02/03/2013, TSH=1.6, 01/19/2013, Normal EMG/NCV of legs, 09/17/2018, Cath [facility] 30% stenosis LAD, 05/19/2019. * Surgical History: D &C , Right knee bone chip removed 1990, TARA/BSO abdominal, H 1994, Heart Cath, near Normal 07/2004, cystoscopy , Colonoscopy 2003, 2013, 2014, RT Shoulder 01/09/2010, Cholecystectomy 2004, RT Knee Arthoscopy 09/05/2015, RT Knee Replacement 09/03/2016, RT Hip Replacement 10/14/2017, Hip Steroid Injection 08/26/2018, 10/06/2018, Heart Cath, [facility] 05/2019. * Hospitalization/Major Diagno stic Procedure: C hest Pain 02/2006, Bronchitis, Hives- [facility] ER 08/31/2010, Chest Pain 01/2013. [...] mg subcutaneously once a week , Taking Spironolactone 25 MG Tablet 1 tab(s) orally once a day , Taking Vitamin B-12 1000 MCG Tablet 1 tablet Orally Once a day , Taking Gabapentin 600 MG Tablet 1 tab(s) orally 3 times a day , Taking ALPRAZolam 0.5 MG Tablet 1 tab orally 3 times a day , Taking Losartan Potassium 50 MG Tablet TAKE 1 TABLET TWICE DAILY , Taking Metoprolol Succinate ER 25 MG Tablet Extended Release 24 Hour TAKE 1 TABLET EVERY DAY , Taking DULoxetine HCl 60 MG Capsule Delayed Release Particles TAKE 1 CAPSULE ONE TIME DAILY , Taking amLODIPine Besylate 5 MG Tablet TAKE 1 TABLET EVERY DAY , Taking Celecoxib 200 MG Capsule TAKE 1 CAPSULE EVERY DAY , Taking Atorvastatin Calcium 40 MG Tablet TAKE 1 TABLET AT BEDTIME , Taking Montelukast Sodium 10 MG Tablet TAKE 1 TABLET EVERY DAY , Taking Omeprazole 40 MG Capsule Delayed Release TAKE 1 CAPSULE EVERY DAY , Taking Raloxifene HCl 60 MG Tablet TAKE 1 TABLET BY MOUTH EVERY DAY , Medication List reviewed and reconciled with the patient * Allergies: P enicillins, Aspirin, Altace. Objective: * Vitals: W t:190.2, Temp:97.8, BP:120/70, HR:62, Nurse:CHAPIS, Ht: 62.25, BMI:34.51. * Examination: G eneral Examination: General Appearance: [...] ssential hypertension - I10 (Primary) 2 . D epression with anxiety - F41.8 3 . M ixed hyperlipidemia - E78.2 4 . H istory of right hip replacement - Z96.641 5 . P alpitations - R00.2 6 . O ther chronic pain - G89.29 7 . S creen for colon cancer - Z12.11 8 . T ype 2 diabetes mellitus without complication, without long-term current use of insulin - E11.9 Plan: * Treatment: Value Reference Range A /G Ratio 1.9 1.1-2.5 - * A lbumin 4.4 3.5-5.3 - g/dL * A lkaline Phosphatase 104 35-121 - IU/L * A LT (SGPT) 17 <5-47 - IU/L * A ST (SGOT) 16 <5-40 - IU/L * B ilirubin, Total 0.4 <0.2-1.2 - mg/dL * B UN 16 8-23 - mg/dL * C alcium 9.7 8.6-10.4 - mg/dL * C hloride 106 97-108 - mmol/L * C O2 27 22-32 - mmol/L * C reatinine 0.74 0.50-1.00 - mg/dL * G lucose 94 65-99 - mg/dL * P otassium 4.9 3.5-5.3 - mmol/L * S odium 142 135-145 - mmol/L * P rotein 6.7 6.0-8.3 - g/dL * e GFR by Creatinine 90 >59 - mL/min/1.73m2 * Marilu Connelly 11/30/2024 5:1 2:40 PM >Patient informed of normal results. ?LAB: CBC Venipuncture (in house) (Collection Date & Time - 11/25/2024)* Value Reference Range w bc 7.3 3.5 - 10 * l ymph 28.0% 15 - 50 * m id 6.1% 2 - 15 * g ran 65.9% 35 - 80 * r bc 4.48 3.5 - 5.5 * h gb 13.2 11.5 - 16.5 * h ct 38.6 35 - 55 * m cv 86.2 75 - 100 * m ch 29.5 25 - 35 * m chc 34.2 31 - 38 * p latlet 305 100 - 400 * Marilu Connelly 11/25/2024 9:2 7:29 AM > Provider reviewed results while patient in office. 2.?Depression with anxiety? Refill ALPRAZolam Tablet, 0.5 MG, 1 tab, orally, 3 times a day, 30 day(s), 90 Tablet, Refills 2. ?3.?Palpitations?Imaging: Holter Monitor- 48 hour (Performed Date - 11/25/2024)* Ela Matamoros 02/14/2025 01: 31:08 PM EDT > See phone encounter 4.?Other chronic pain? Refill Gabapentin Tablet, 600 MG, 1 tab(s), orally, 3 times a day, 30 days, 180, Refills 2.? 5.?Type 2 diabetes mellitus without complication, without long- term current use of insulin?LAB: P-Microalbumin/Creatinine, Random Urine Sample (Collection Date & Time - 11/25/2024 10:06 AM)?Normal* Value Reference Range A lbumin/Creatinine Ratio, Urine <3.07 0-30 - ug /mg * C reatinine, Urine 97.7 - mg/dL * M icroalbumin, Urine, Random <0.3 - mg/dL * Marilu Connelly 11/30/2024 5:1 2:40 PM >Patient informed of normal results. ?LAB: Glycohemoglobin A1c (in house) (Collection Date & Time - 11/25/2024)* Value Reference Range g lycohemoglobin 6.3% 5 - 6.5 % * Marilu Connelly 11/25/2024 9:2 7:06 AM > Provider reviewed results while patient in office. 6.?Others? Refill Raloxifene HCl Tablet, 60 MG, TAKE 1 TABLET BY MOUTH EVERY DAY, 90 days, 90 Tablet, Refills 3.? Referral To:Gastroenterology ?Reason:refer toDr. Guerrero for colonoscopy * Procedure Codes: G 2211 Complex e/[place], [address] CBC WITH AUTO DIFF, 47066 GLYCATED HEMOGLOBIN TEST, Modifiers: QW , 3044F HG A1C LEVEL LT 7.0%, G8752 MOST RECENT SYSTOLIC BP < 140MM HG, G8754 MOST RECENT DIASTOLIC BP < 90MM HG * Follow Up: 4 Months * Images: Billing Information: * Visit Code: 58917 Office Visit, Est Pt., Level 4. * Procedure Codes: G2211 Complex e/[place]. [address] CBC WITH AUTO DIFF. 15174 GLYCATED HEMOGLOBIN TEST. Modifiers: QW 3044F HG A1C LEVEL LT 7.0%. G8752 MOST RECENT SYSTOLIC BP < 140MM HG. G8754 MOST RECENT DIASTOLIC BP < 90MM HG. * Electronic signature of Stepan Aceves MD on 08/02/2025 at 11:04 AM EST Sign off status: Pending * Provider: Stepan Aceves M.D. Date: 0 11/25/2024 Generated for Arleth do/Argelia/eTransmitting on: 1 10/02/2024 11:04 AM EST History and Physical Notes * HPI (History of Present Illness) Category Sub-Category Detail Notes Category Not es Cardiology Short of Breath Chest Pain Palpitations with exertion Dizziness Gastroenterology Asks about colonoscopy, but thinks she had negative Cologuard last year. Uncertain. Examination Category Sub-Category Detail Notes Category Not [...] kyphosis Chest: normal shape and exp ansion Consultation Request Notes Referral Date Referring Provider Referred Provider Not es 11/25/2024 Stepan Aceves , refer to Marie Guerrero for colonoscopy
--- OUTSIDE RECORDS SUMMARY | 2025-03-31 04:45 | XMS_ITS ---
Author Organization [facility] Address [address] [place] [id number] Care Team Providers Care Child Care Lead Teacher Name Role Phone Stepan Aceves Primary Care [...] Notes Glycohemoglobin A1c (in hous e) Reviewed date:03/31/2025 12:17:12 PM Interpretation: Performing Lab: Notes/Report: glycohemoglobin 6.0% 5 - 6.5 % P-Comprehensive Metabolic Pa alla (CMP) Reviewed date:04/07/2025 12:23:09 PM Interpretation:satisfactory Performing Lab: Notes/Report: Test performed by [facility], [address] , [address], [place] [address] Brennan Parry MD, Cell Operator CLIA: [id number] Sodium 144 135-145 mmol/L Potassium 4.9 3.5-5.3 mmol/L Chloride 104 97-108 mmol/L CO2 27 20-32 mmol/L Glucose 99 65-99 mg/dL BUN 15 8-23 mg/dL Creatinine 0.90 0.50-1.00 mg/dL Calcium 10.5 8.6-10.4 mg/dL eGFR by Creatinine 71 >59 mL/min/1.73m2 Protein 6.9 6.0-8.3 g/dL Albumin 4.6 3.5-5.3 g/dL Alkaline Phosphatase 98 35-121 IU/L ALT (SGPT) 18 <5-47 IU/L AST (SGOT) 17 <5-40 IU/L Bilirubin, Total 0.6 <0.2-1.2 mg/dL A/G Ratio 2.0 1.1-2.5 DEXA Hip and Spine Reviewed date:04/17/2025 04:31:36 PM Interpretation:Normal Performing Lab: Notes/Report: Normal Dexa results Normal Mammogram Reviewed date:04/22/2025 11:18:53 AM Interpretation:Negative Performing Lab: Notes/Report: Negative result Negative REASON FOR VISIT 4 Month Follow Up, Needs labs, mammogram, bone density screening, colon cancer screening, diabetic eye exam, & Prevnar vaccine Medications Medication SIG (Take, Route, Frequency, Duration) Notes Start Date End Date Status Spironolactone 25 MG 1 tab(s) orally onc e a day; Duration: 90 days Active Losartan Potassium 50 MG TAKE 1 TABLET T WICE DAILY; Duration: 90 days Active Aspirin Low Dose 81 MG 1 tab(s) orally o nce a day 04/02/2017 Active Vitamin B-12 1000 MCG 1 tablet Orally On ce a day; Duration: 90 days Active Raloxifene HCl 60 MG TAKE 1 TABLET BY [facility] EVERY DAY; Duration: 90 days Active Calcium + Vitamin D3 600-5 MG-MCG 1 tab(s) orally 2 times a day Active Symbicort 80-4.5 MCG/ACT 2 puff(s) inhal ed 2 times a day Active Loratadine 10 MG 1 capsule Orally Onc e a day; Duration: 30 day(s) Active ProAir Digihaler 108 (90 Base) MCG/ACT 2 puff(s) inhaled three times a day as needed 10/01/2020 Active Fluticasone Propionate 50 MCG/ACT as directed in each nostril once a day; Duration: 30 day(s) Active ALPRAZolam 0.5 MG 1 tab orally 3 times a day; Duration: 30 day(s) 03/31/2025 Active Ozempic (0.25 or 0.5 MG/DOSE) 2 MG/3ML ADMINISTER 0.5 MG UNDER THE SKIN 1 TIME WEEKLY; Duration: 28 Active Gabapentin 600 MG 1 tab(s) orally 3 ti mes a day; Duration: 30 days 03/31/2025 Active Atorvastatin Calcium 40 MG TAKE 1 TABLET AT BEDTIME; Duration: 90 Active Celecoxib 200 MG TAKE 1 CAPSULE EVERY DAY; Duration: 90 Active Metoprolol Succinate ER 25 MG TAKE 1 TABLET EVERY DAY; Duration: 90 days Active DULoxetine HCl 60 MG TAKE 1 CAPSULE ONE TIME DAILY; Duration: 90 days Active Montelukast Sodium 10 MG TAKE 1 TABLET E VERY DAY; Duration: 90 Active amLODIPine Besylate 5 MG 1 tablet Orally Once a day; Duration: 90 days Active Omeprazole 40 MG TAKE 1 CAPSULE EVERY DAY; Duration: 90 Active Problems Problem Type SNOMED Code ICD Code Onset Dates Problem Status W/U Status Risk Notes 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) Interstitial pulmonary disease, unspecified (J84.9) Active confirmed Problem COPD - Chronic obstructive pulmonary disease (38961941) Chronic obstructive pulmonary disease, unspecified COPD type (J44.9) Active confirmed Problem BMI 30+ - obesity (016327037) BMI 32.0-32.9,adult (Z68.32) Active confirmed Vital Signs Weight 179.8 lbs 03/31/2025 Blood pressure systolic 120 mm Hg 03/31/20 25 Blood pressure diastolic 70 mm Hg 025 Heart Rate 68 /min 03/31/2025 Height 62.25 in 03/31/2025 BMI 32.62 kg/m2 03/31/2025 Encounters Encounter Location Date Provider Diagnosis [facility] [address], [place] [id number] 03/31/2025 Stepan Aceves Essential hypertensi on I10 ; Rheumatoid factor positive R76.8 ; H/o total knee replacement, right Z96.651 ; Other chronic pain G89.29 ; Osteoporosis M81.0 ; Type 2 diabetes mellitus without complication, without long-term current use of insulin E11.9 ; Anxiety F41.9 ; Depression with anxiety F41.8 ; Interstitial pulmonary disease, unspecified J84.9 ; Ventricular tachycardia, unspecified I47.20 ; Chronic obstructive pulmonary disease, unspecified COPD type J44.9 ; BMI 32.0-32.9,adult Z68.32 ; Screening for colon cancer Z12.11 and Fibrocystic breast disease (FCBD), unspecified laterality N60.19 Assessments Encounter Date Diagnosis (ICD Code) Assessment Notes Treatment Notes Treatment Clinical Notes Section Notes 03/31/2025 Essential hypertension (ICD-10 - I10) 03/31/2025 Rheumatoid factor positive (ICD-10 - R76.8) 03/31/2025 H/o total knee replacement, right (ICD-10 - Z96.651) 03/31/2025 Other chronic pain (ICD-10 - G89.29) 03/31/2025 Osteoporosis (ICD-10 - M81.0) 03/31/2025 Type 2 diabetes mellitus without complication, without long-term current use of insulin (ICD-10 - E11.9) 03/31/2025 Anxiety (ICD-10 - F41.9) 03/31/2025 Depression with anxiety (ICD-10 - F41.8) 03/31/2025 Interstitial pulmonary disease, unspecified (ICD-10 - J84.9) 03/31/2025 Ventricular tachycardia, unspecified (ICD-10 - I47.20) 03/31/2025 Chronic obstructive pulmonary disease, unspecified COPD type (ICD-10 - J44.9) 03/31/2025 BMI 32.0-32.9,adult (ICD-10 - Z68.32) 03/31/2025 Screening for colon cancer (ICD-10 - Z12.11) 03/31/2025 Fibrocystic breast disease (FCBD), unspecified laterality (ICD-10 - N60.19) Plan Of Treatment Medication Medication Name Sig Start Date Stop Date Notes ALPRAZolam 0.5 MG 1 tab orally 3 times a day; Duration: 30 day(s) 03/31/2025 Gabapentin 600 MG 1 tab(s) orally 3 ti mes a day; Duration: 30 days 03/31/2025 Next Appt Details Follow Up: 4 Months, Reason: Provider Name:Stepan Cary er, 08/11/2025 11:15:00 AM, [address] [facility], [address], [place], [id number], Progress Notes * Lionel ROJOOB:1960 ([age] yo F)Acc No.[id number]:03/31/2025 Progress Notes Patient: Jojo MILLER Provider: Stepan Aceves M.D. :1960 A ge:64 Y S ex:Female Date:03/31/2025 Address:[address], [place], [id number] Subjective: * Chief Complaints: * 1 . 4 Month Follow Up. 2. Needs labs, mammogram, bone density screening, colon cancer screening, diabetic eye exam, & Prevnar vaccine. * HPI: C ardiology: The patient is here today for a check-up on Hypertension, Hyperlipidemia, and Diabetes. Had 48 hr Holter in November with significant artifact. Subsequent 7 day monitor 03/13/25. NSR, brief SVT. PAC's and PVC's seen. Cardiology follow-up. Pt states she is doing good except for a sharp pain in the right breast. Pt states she worked in her garden and this started after that. Pt states he has not had the pain this week. Pt is fasting. Pt states she is needing a refill for Alprazolam and Gabapentin sent to [facility] in [place]. Denies : Chest Pain. D enies : [...] 01/19/2013, Normal EMG/NCV of legs, 09/17/2018, Cath [facility] 30% stenosis LAD, 05/19/2019. * Surgical History: D &C , Right knee bone chip removed 1990, TARA/BSO abdominal, [facility] 1994, Heart Cath, near Normal 07/2004, cystoscopy , Colonoscopy 2003, 2013, 2014, RT Shoulder 01/09/2010, Cholecystectomy 2004, RT Knee Arthoscopy 09/05/2015, RT Knee Replacement 09/03/2016, RT Hip Replacement 10/14/2017, Hip Steroid Injection 08/26/2018, 10/06/2018, Heart Cath, [facility] 05/2019, Colonoscopy, Dr. Guerrero, 2 polyps, one was tubular adenoma 02/06/25. * Hospitalization/Major Diagno stic Procedure: C hest Pain 02/2006, Bronchitis, Hives- [facility] ER 08/31/2010, Chest Pain 01/2013. * [...] tablet Orally Once a day , Taking Raloxifene HCl 60 MG Tablet TAKE 1 TABLET BY MOUTH EVERY DAY , Taking Gabapentin 600 MG Tablet 1 tab(s) orally 3 times a day , Taking Spironolactone 25 MG [...] , Taking amLODIPine Besylate 5 MG Tablet 1 tablet Orally Once a day , Taking Omeprazole 40 MG Capsule Delayed Release TAKE 1 CAPSULE EVERY DAY , Taking Montelukast Sodium 10 MG Tablet TAKE 1 TABLET EVERY DAY , Taking Celecoxib 200 MG Capsule TAKE 1 CAPSULE EVERY DAY , Taking Atorvastatin Calcium 40 MG Tablet TAKE 1 TABLET AT BEDTIME , Taking Ozempic (0.25 or 0.5 MG/DOSE) 2 MG/3ML Solution Pen-injector ADMINISTER 0.5 MG UNDER THE SKIN 1 TIME WEEKLY , Medication List reviewed and reconciled with the patient * Allergies: P enicillins, Aspirin, Altace. Objective: * Vitals: W t: 179.8, Temp: 97.9, BP: 120/70, HR: 68, Nurse: CHAPIS, Ht: 62.25, BMI:32.62. * Examination: G eneral Examination: General Appearance: [...] ssential hypertension - I10 (Primary) 2 . R heumatoid factor positive - R76.8 3 . H /o total knee replacement, right - Z96.651 4 .?Other chronic pain - G89.29 5 . O steoporosis - M81.0 6 . T ype 2 diabetes mellitus without complication, without long-term current use of insulin - E11.9? 7. A nxiety - F41.9 8 . D epression with anxiety - F41.8 ? 9 . I nterstitial pulmonary disease, unspecified - J84.9 1 0. V entricular tachycardia, unspecified - I47.20 1 1. C hronic obstructive pulmonary disease, unspecified COPD type - J44.9 1 2. B RI 32.0-32.9,adult - Z68.32 ? 1 3. S creening for colon cancer - Z12.11 1 4. F ibrocystic breast disease (FCBD), unspecified laterality - N60.19 Plan: * Treatment: Value Reference Range A /G Ratio 2.0 1.1-2.5 - * A lbumin 4.6 3.5-5.3 - g/dL * A lkaline Phosphatase 98 35-121 - IU/L * A LT (SGPT) 18 <5-47 - IU/L * A ST (SGOT) 17 <5-40 - IU/L * B ilirubin, Total 0.6 <0.2-1.2 - mg/dL * B UN 15 8-23 - mg/dL * C alcium 10.5 H 8.6-10.4 - mg/dL * C hloride 104 97-108 - mmol/L * C O2 27 20-32 - mmol/L * C reatinine 0.90 0.50-1.00 - mg/dL * G lucose 99 65-99 - mg/dL * P otassium 4.9 3.5-5.3 - mmol/L * S odium 144 135-145 - mmol/L * P rotein 6.9 6.0-8.3 - g/dL * e GFR by Creatinine 71 >59 - mL/min/1.73m2 * Marilu Connelly 04/07/2025 12: 22:58 PM EDT > Patient informed of normal results. 2.?Other chronic pain? Refill Gabapentin Tablet, 600 MG, 1 tab(s), orally, 3 times a day, 30 days, 180, Refills 2.? 3.?Osteoporosis?Imaging: DEXA Hip and Spine (Performed Date - 04/12/2025)?Normal* Value Reference Range D exa results Normal * Oksana Goyal 03/31/2025 10:1 9:09 AM EDT > faxed to [facility] Marilu Ramirez 04/17/2025 04:31:27 PM EDT > Patient informed of normal results. 4.?Type 2 diabetes mellitus without complication, without long-term current use of insulin?LAB: Glycohemoglobin A1c (in house) (Collection Date & Time - 03/31/2025)* Value Reference Range g lycohemoglobin 6.0% 5 - 6.5 % * Marilu Connelly 03/31/2025 12 :08:45 PM EDT > Provider reviewed results while patient in office. 5.?Anxiety? Refill ALPRAZolam Tablet, 0.5 MG, 1 tab, orally, 3 times a day, 30 day(s), 90 Tablet, Refills 2. ?6.?Fibrocystic breast disease (FCBD), unspecified laterality?Imaging: Mammogram (Performed Date - 04/12/2025)?Negative* Value Reference Range r esult Negative * Oksana Goyal 03/31/2025 10:1 8:57 AM EDT > faxed to [facility] KellygypsyEragina العلي 04/22/2025 11:18:40 AM EDT > Patient informed of normal results. * Procedure Codes: G 2211 Complex e/[place], [address] GLYCATED HEMOGLOBIN TEST, Modifiers: QW , 1036F TOBACCO NON-USER, 3044F HG A1C LEVEL LT 7.0%, G8950 PREHTN/HTN BP DOC INDCD F/U DOC, G8752 MOST RECENT SYSTOLIC BP < 140MM HG, G8754 MOST RECENT DIASTOLIC BP < 90MM HG * Follow Up: 4 Months * Images: Billing Information: * Visit Code: 11791 Office Visit, Est Pt., Level 4. * Procedure Codes: G2211 Complex e/[place]. [address] GLYCATED HEMOGLOBIN TEST. Modifiers: QW 1036F TOBACCO NON-USER. 3044F HG A1C LEVEL LT 7.0%. G8950 PREHTN/HTN BP DOC INDCD F/U DOC. G8752 MOST RECENT SYSTOLIC BP < 140MM HG. G8754 MOST RECENT DIASTOLIC BP < 90MM HG. * Electronic signature of Stepan Aceves MD on 08/02/2025 at 11:05 AM EST Sign off status: Pending * Provider: Stepan Aceves M.D. Date: 0 03/31/2025 Generated for Arleth do/Argelia/Dk on: 10/02/2024 11:05 AM EST History and [...]
--- NOTE | 2025-08-02 | CA_ITS ---
APPROVED REPORT Exam: Pharmacologic Technologist: Alysha Paulino Stress Nurse: Allegra GRECO, RN Ht: 5 ft 5 in Wt: 180 lbs BSA: 1.89 m2 HR: 65 bpm BP: 118/68 mmHg Indications: Near syncope, history of coronary artery disease Stress Test Details Test: Lexiscan HR Resting HR: 65 bpm Max Heart Rate (APMHR): 155.089882 bpm Max HR Achieved: 92 bpm Target HR (85% APMHR): 131.412861 bpm % of APMHR: 59.35 Recovery HR: 77 bpm BP Resting BP: 118.0/68.0 mmHg Max BP: 141.0/65.0 mmHg Recovery BP: 122.0/63.0 mmHg ECG Stress ECG Conclusion Lungs clear to auscultation prior to test start. Symptoms: None Arrhythmias/Ectopy: PVC ST-T Changes: Less than 0.[address] segment changes. Electronically signed by : Yessica Garcia MD 08/06/2025 22:26:48
--- OUTSIDE RECORDS SUMMARY | 2025-08-02 11:05 | XMS_ITS | Patient Health Record ---
Author Organization [facility] Address [address] [place] [id number] Care Team Providers Care Leather Sprayer Name Role Phone Stepan Aceves Primary Care Provider [phone] Brendan Gipson Unavailable [phone] Allergies Allergen (clinical drug ingredient) Drug/Non Drug [...] Interpretation:Normal Performing Lab: Notes/Report: Test performed by [facility] [address] [place] [address] , [address], [place] [address] Brennan Parry MD, Resource Recovery Engineer CLIA: [id number] Sodium 142 135-145 mmol/L Potassium 4.9 3.5-5.3 [...] Interpretation:Normal Performing Lab: Notes/Report: Test performed by [facility] [address] [place] [address] , [place] [address] Brennan Parry MD, Resource Recovery Engineer CLIA: [id number] Albumin/Creatinine Ratio, Urine <3.07 0-30 ug/m g Microalbumin, Urine, Random <0.3 Creatinine, Urine 97.7 Holter Monitor- 48 hour Reviewed date:02/14/2025 01:31:21 PM Interpretation: Performing Lab: Notes/Report: Glycohemoglobin A1c (in hous e) Reviewed date:03/31/2025 12:17:12 PM Interpretation: Performing Lab: Notes/Report: glycohemoglobin 6.0% 5 - 6.5 % P-Comprehensive Metabolic Pa alla (CMP) Reviewed date:04/07/2025 12:23:09 PM Interpretation:satisfactory Performing Lab: Notes/Report: CLIA: [id number] Brennan Parry MD, Resource Recovery Engineer [facility] , [place] [address] Test performed by [facility] Sodium 144 135-145 mmol/L Potassium 4.9 3.5-5.3 [...] Interpretation:Negative Performing Lab: Notes/Report: Negative result Negative Holter - 7 day Reviewed date:04/07/2025 11:02:03 AM Interpretation:see 03/31/25 OV Performing Lab: Notes/Report: see 03/31/25 OV Medications Medication SIG (Take, Route, Frequency, Duration) Notes Start Date End Date Status Metoprolol Succinate ER 25 MG 1 tablet Orally Once a day; Duration: 90 days Active Montelukast Sodium 10 MG 1 tablet Orally Once a day; Duration: 90 days Active Losartan Potassium 50 MG 1 tablet Orally twice a day; Duration: 90 days Active DULoxetine HCl 60 MG 1 capsule Orally On ce a day; Duration: 90 days Active Aspirin Low Dose 81 MG 1 tab(s) orally o nce a day 04/02/2017 Active Vitamin B-12 1000 MCG 1 tablet Orally On ce a day; Duration: 90 days Active ProAir Digihaler 108 (90 Base) MCG/ACT 2 puff(s) inhaled three times a day as needed 10/01/2020 Active ALPRAZolam 0.5 MG 1 tab orally 3 times a day; Duration: 30 days 07/03/2025 Active Fluticasone Propionate 50 MCG/ACT as directed in each nostril once a day; Duration: 30 day(s) Active Ozempic (0.25 or 0.5 MG/DOSE) 2 MG/3ML 0.5 mg Subcutaneous once a week; Duration: 28 days Active Raloxifene HCl 60 MG TAKE 1 TABLET BY [facility] EVERY DAY; Duration: 90 days Active [...] e a day; Duration: 30 day(s) Active Atorvastatin Calcium 40 MG 1 tablet at b edtime Orally Once a day; Duration: 90 days Active Celecoxib 200 MG 1 capsule as needed Orally Once a day; Duration: 90 days Active amLODIPine Besylate 5 MG 1 tablet Orally Once a day; Duration: 90 days Active Omeprazole 40 MG 1 capsule 1/2 to 1 h our before morning meal Orally Once a day; Duration: 90 days Active Immunizations Vaccine Route [...] W/U Status Risk Notes Problem Essential hypertension (43938601) Essential hypertension (I10) Active confirmed Problem Anxiety (91603828) Anxiety (F41.9) Active confi rmed Problem Sciatic nerve lesion (566239907) Piriformis syndrome of left side (G57.02) Active confirmed Problem Mixed anxiety and depressive disorder (450602711) Depression with anxiety (F41.8) Active confirmed Problem BMI 30+ - obesity (144745423) BMI 32.0-32.9,adult (Z68.32) Active confirmed Problem Rheumatoid factor positive (572003279) Rheumatoid factor positive (R76.8) Active confirmed Problem Sciatica (95647930) Lumbago with sciatica, right side (M54.41) Active confirmed Problem Mixed hyperlipidemia (267191235) Mixed hyperlipidemia (E78.2) Active confirmed Problem Chronic pain (57880317) Other chronic pain (G89.29) Active confirmed Problem 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) Interstitial pulmonary disease, unspecified (J84.9) Active confirmed Problem Onychomycosis (863860189) Onychomycosis (B35.1) Active confirmed Problem Gastroesophageal reflux disease (578850960) GERD without esophagitis (K21.9) Active confirmed Problem Chronic pain (93133890) Other chronic pain (G89.29) Active confirmed Problem Myositis (56974173) Myofasciitis (M60.9) Active confirmed Problem Cervical disc disease (168381913) Cervical disc disease (M50.90) Active confirmed Problem COPD - Chronic obstructive pulmonary disease (41258595) Chronic obstructive pulmonary disease, unspecified COPD type (J44.9) Active confirmed Problem Obese class II (455642978628788) BMI 36.0-36.9,adult (Z68.36) Active confirmed Problem Osteoporosis (59569350) Osteoporosis (M81.0) Active confirmed Problem Screening for colon cancer (385139153) Screening for colon cancer (Z12.11) Active confirmed Problem History of right hip replacement (5290727740761173) History of right hip replacement (Z96.641) Active confirmed Problem Allergic rhinitis caused by pollen (40063073) Seasonal allergic rhinitis due to pollen (J30.1) Active confirmed Problem Type II diabetes mellitus without complication (765686059) Type 2 diabetes mellitus without complication, without long-term current use of insulin (E11.9) Active confirmed Problem Artificial knee joint present (073692124935) H/o total knee replacement, right (Z96.651) Active confirmed Problem Osteopenia (799744563) Osteopenia, unspecified location (M85.80) Active confirmed Problem Fibrocystic breast changes (75260794) Fibrocystic breast disease (FCBD), unspecified laterality (N60.19) Active confirmed Problem Uncomplicated moderate persistent asthma (103894923) Moderate persistent asthmatic bronchitis without complication (J45.40) Active confirmed Problem Arthritis of left hip (1583332895237568) Arthritis of left hip (M16.12) Active confirmed Problem History of total replacement of left hip joint (6169350340552510) Status post total hip replacement, left (Z96.642) Active confirmed Problem Ankle ulcer (073521259) Skin ulcer of right ankle, limited to breakdown of skin (L97.311) Active confirmed Vital Signs Heart Rate 68 /min 03/31/2025 Blood pressure diastolic 70 mm Hg 03/31/2025 Height 62.25 in 03/31/2025 Blood pressure systolic 120 mm Hg 03/31/2025 Weight 179.8 lbs 03/31/2025 BMI 32.62 kg/m2 03/31/2025 Encounters Encounter Location Date Provider Diagnosis [address] [id number] 11/25/2024 Stepan Aceves Essential hypertensi on I10 ; Depression with anxiety F41.8 ; Mixed hyperlipidemia E78.2 ; History of right hip replacement Z96.641 ; Palpitations R00.2 ; Other chronic pain G89.29 ; Screen for colon cancer Z12.11 and Type 2 diabetes mellitus without complication, without long-term current use of insulin E11.[address] [id number] 03/31/2025 Stepan Aceves Essential hypertensi on I10 [...] Fibrocystic breast disease (FCBD), unspecified laterality N60.[address], [place] [id number] 08/18/2024 Stepan Aceves [facility] [address] [place], [place] [id number] 09/01/2024 Stepan Aceves Other chronic pain G89.29 and Anxiety F41.9 [facility] [address] [place], [place] [id number] 11/08/2024 Brendan Thorndale Depression with anxi ety F41.8 [facility] [address] [place], [place] [id number] 02/14/2025 Stepan Aceves [facility] [address] [facility] [address] [place], [place] [id number] 07/03/2025 Brendan Thorndale Anxiety F41.9 Assessments Encounter Date Diagnosis (ICD Code) Assessment Notes Treatment Notes Treatment Clinical Notes Section Notes 09/01/2024 Other chronic pain (ICD-10 - G89.29) 11/25/2024 Essential hypertension (ICD-10 - I10) 11/25/2024 Depression with anxiety (ICD-10 - F41.8) 11/08/2024 Depression with anxiety (ICD-10 - F41.8) 03/31/2025 Essential hypertension (ICD-10 - I10) 03/31/2025 Rheumatoid factor positive (ICD-10 - R76.8) 07/03/2025 Anxiety (ICD-10 - F41.9) 03/31/2025 H/o total knee replacement, right (ICD-10 - Z96.651) 11/25/2024 Mixed hyperlipidemia (ICD-10 - E78.2) 09/01/2024 Anxiety (ICD-10 - F41.9) 11/25/2024 History of right hip replacement (ICD-10 - Z96.641) 03/31/2025 Other chronic pain (ICD-10 - G89.29) 03/31/2025 Osteoporosis (ICD-10 - M81.0) 11/25/2024 Palpitations (ICD-10 - R00.2) 11/25/2024 Other chronic pain (ICD-10 - G89.29) 03/31/2025 Type 2 diabetes mellitus without complication, without long-term current use of insulin (ICD-10 - E11.9) 03/31/2025 Anxiety (ICD-10 - F41.9) 11/25/2024 Screen for colon cancer (ICD-10 - Z12.11) 11/25/2024 Type 2 diabetes mellitus without complication, without long-term current use of insulin (ICD-10 - E11.9) 03/31/2025 Depression with anxiety (ICD-10 - F41.8) [...] Pending Test Test Name Order Date LC-Sedimentation Rate-Jozefergren 022 Next Appt Details Provider Name:Stepan Cary er, 08/11/2025 11:15:00 AM, [address] [facility], [address], [place], [place], [id number], Insurance Providers Payer Name Payer Address Payer Phone Subscriber Number Group Number Insured Name Patient Relationship to Insured Coverage Start Date Coverage End Date [employer] (MEDICARE) [address] [address] [place] [address] [phone] [id number] Jojo Flores Self - patient is the insured [facility] [employer] [address] [place] [address] [id number] Jojo Flores Self - patient is the [...] 01/19/2013 Normal EMG/NCV of legs, 09/17/2018 Cath [facility] 30% stenosis LAD, 05/19/2019 Surgical History Surgery Date(Month/Year) D&C Right knee bone chip removed 1990 TARA/BSO abdominal, [facility] 1994 Heart Cath, near Normal 07/2004 cystoscopy Colonoscopy 2003, 2013, 2014 RT Shoulder 01/09/2010 Cholecystectomy 2004 RT Knee Arthoscopy 09/05/2015 RT Knee Replacement 09/03/2016 RT Hip Replacement 10/14/2017 Hip Steroid Injection 08/26/2018, 019 Heart Cath, [facility] 05/2019 Colonoscopy, Dr. Guerrero, 2 polyps, one was tubular adenoma 02/06/25 Hospitalization History Reason Date(Month/Year) Chest Pain 01/2013 Bronchitis, Hives- [facility] ER 08/31/2010 Chest Pain 02/2006
--- OUTSIDE RECORDS SUMMARY | 2025-08-02 11:05 | XMS_ITS | Clinical Summary ---
Author Organization [employer] ([place], [place], [place], [place], [place]) Address [address] [place] [address] Care Team Providers Care Gettering Filament Machine Operator Name Role Phone Tahir Aceves MD Primary Care Provider +1 -[phone] Allergies Active Allergy Reactions Criticality Noted Date [...] Date Darryn rded Speak language other than Persian at home Not on file 09/25/2023 Want [...] series) 2034 Medical Devices Implanted Type Area Residential Program Manager Device Identifier Shelf Expiration Date Model / Serial / Lot Scr Low Profile 6.5x20mm 2469-7908 - [id number] Implanted:Qt y: 1 on 03/09/2023 by Nicole Ordaz MD at [facility] IMPLANTS Left: Hip JERRY:[employer] [id number] 09/30/2027 2675-7700 / / UDUA Scr Low Profile 6.5x25mm 9788-6310 - [id number] Implanted:Qt y: 1 on 03/09/2023 by Nicole Ordaz MD at [facility] IMPLANTS Left: Hip JERRY:[employer] [id number] 12/22/2027 7306-6136 / / U3J Shell Trident Ii Tri Clusterhl 702-04-50d - [id number] Implanted:Qt y: 1 on 03/09/2023 by Nicole Ordaz MD at [facility] TOTAL JOINT CONSTRUCT Left: Hip JERRY:[employer] [id number] 09/14/2027 702-04-50 D / / [id number] Insrt Trident Poly X3 36mm D 723-00-36d - [id number] Implanted:Qt y: 1 on 03/09/2023 by Nicole Ordaz MD at [facility] TOTAL JOINT CONSTRUCT Left: Hip JERRY:[employer] [id number] 02/09/2028 723-00-36 D / / [id number] Stem Hip Insig Hi Off Sz2 9190-6241 - [id number] Implanted:Qt y: 1 on 03/09/2023 by Nicole Ordaz MD at [facility] TOTAL JOINT CONSTRUCT Left: Hip JERRY:[employer] [id number] 11/19/2027 6538-3675 / / [id number] Head Fem Ceramic V40 36mm 6570-0-136 - [id number] Implanted:Qt y: 1 on 03/09/2023 by Nicole Ordaz MD at [facility] TOTAL JOINT CONSTRUCT Left: Hip JERRY:[employer] [id number] 01/08/2028 6570-0-13 / / [id number] [place] [address] MEDICARE O GENERIC COMMERCIAL Advance Directives For more information, please contact: [phone] * Full Code (Latest Code Status on File) Date Activated Date Inactivated Comments 03/09/2023 11:33 AM 03/10/2023 12:59 PM * Full Code Date Activated Date Inactivated Comments 03/09/2023 5:46 AM 03/09/2023 11:33 AM Care Teams Gettering Filament Machine Operator Relationship Specialty Start Date End Date Tahir Aceves MD [address] [place] [address] PCP - General Family Medicine 02/19/23
--- OUTSIDE RECORDS SUMMARY | 2025-08-02 11:06 | XMS_ITS | Referral Summary ---
Author Organization [employer] ([place], [place], [place], [place], [place]) Address [address] [place] [address] Care Team Providers Care Ediscovery Project Manager Name Role Phone Tahir Aceves MD Primary Care Provider +1 -[phone] Allergies Active Allergy Reactions Criticality Noted Date [...] Date Darryn rded Speak language other than Yoruba at home Not on file 09/25/2023 Want [...] on file Medical Devices Implanted Type Area Flux Plant Operator Device Identifier Shelf Expiration Date Model / Serial / Lot Scr Low Profile 6.5x20mm 9040-5493 - [id number] Implanted:Qt y: 1 on 03/09/2023 by Nicole Ordaz MD at [facility] IMPLANTS Left: Hip JERRY:[employer] [id number] 09/30/2027 4979-2588 / / UDUA Scr Low Profile 6.5x25mm 0562-7086 - [id number] Implanted:Qt y: 1 on 03/09/2023 by Nicole Ordaz MD at [facility] IMPLANTS Left: Hip JERRY:[employer] [id number] 12/22/2027 9135-8664 / / U3J Shell Trident Ii Tri Clusterhl 702-04-50d - [id number] Implanted:Qt y: 1 on 03/09/2023 by Nicole Ordaz MD at [facility] TOTAL JOINT CONSTRUCT Left: Hip JERRY:[employer] [id number] 09/14/2027 702-04-50 D / / [id number] Insrt Trident Poly X3 36mm D 723-00-36d - [id number] Implanted:Qt y: 1 on 03/09/2023 by Nicole Ordaz MD at [facility] TOTAL JOINT CONSTRUCT Left: Hip JERRY:[employer] [id number] 02/09/2028 723-00-36 D / / [id number] Stem Hip Insig Hi Off Sz2 5112-5679 - [id number] Implanted:Qt y: 1 on 03/09/2023 by Nicole Ordaz MD at [facility] TOTAL JOINT CONSTRUCT Left: Hip JERRY:[employer] [id number] 11/19/2027 4758-6850 / / [id number] Head Fem Ceramic V40 36mm 6570-0-136 - [id number] Implanted:Qt y: 1 on 03/09/2023 by Nicole Ordaz MD at [facility] TOTAL JOINT CONSTRUCT Left: Hip JERRY:[employer] [id number] 01/08/2028 6570-0-13 6 / / [id number] [place] [address] [facility] MEDICARE PPO GENERIC COMMERCIAL Advance Directives For more information, please contact: [phone] * Full Code (Latest Code Status on File) Date Activated Date Inactivated Comments 03/09/2023 11:33 AM 03/10/2023 12:59 PM * Full Code Date Activated Date Inactivated Comments 03/09/2023 5:46 AM 03/09/2023 11:33 AM Care Teams Ediscovery Project Manager Relationship Specialty Start Date End Date Tahir Aceves MD [address] [place] [address] PCP - General Family Medicine 02/19/23
--- NOTE | 2025-08-02 11:30 | NM_ITS ---
APPROVED REPORT Exam: Nuclear Stress Test Indication: palpitations..syncope..fatigue Patient Location: Outpatient Stress Tech: Alysha Paulino DC Tech:Lindsay ParisringtonABDIAS RT(R)(N) Ht: 5 ft 5 in Wt: 180 lbs Bra Size: 40dd HR: 70 bpm BP: 118/68 mmHg BSA: 1.89 m2 TID: 1.02 BMI: 29.9 History: palpitations..syncope..fatigue Procedure: Patient received 0.4 mg of intravenous Lexiscan, resting heart rate 70 bpm, resting blood pressure 118/68 mmHg, with Lexiscan maximum heart rate achieved was 91 bpm which is 85 % of the maximum predicted heart rate and blood pressure was 135/74 mmHg. With Lexiscan, patient denied any complaint of chest pain. Cardiac Stress and Resting SPECT Images: Cardiac Stress and Resting SPECT images were obtained using technetium 99m Myoview 32.9 mCi stress and 10.84 mCi at rest. Resting and stress imaging in supine and prone positions demonstrate no evidence of fixed or reversible perfusion defects. Gated imaging demonstrates normal global LV systolic function. LVEF is calculated at 63%. Conclusion: No evidence of fixed or reversible perfusion defects. Gated imaging demonstrates normal global LV systolic function. LVEF is calculated at 63%. Electronically signed by : Yessica Garcia MD 08/06/2025 22:21:58
[2025-08-02 12:55] VITALS: BP 118/68; PULSE 65; RESP 14
[2025-08-02] MEDS: SODIUM CHLORIDE 0.9% 10ML SYR (RAD ONLY) 10 ML IV ×2 (14:04)
[2025-08-02] MEDS: ISOTOPE MYOVIEW (PER STUDY) 1 DOSE IV (14:04)
== END 2025-08-02 23:59 | disposition home or self-care (01) ==
LOC: RAD 11:00
PROVIDERS: PCP Family Medicine; Visit Provider Nurse Practitioner
DX: I49.3 Ventricular premature depolarization (principal); I25.10 Atherosclerotic heart disease of native coronary artery without angina pectoris; I08.1 Rheumatic disorders of both mitral and tricuspid valves; R51.9 Headache, unspecified; R55 Syncope and collapse
CPT/HCPCS: 78452; 93017; 93018; A9502; J2785